=== PATIENT | female | born 1985 | race Caucasian/White ===

== ENCOUNTER 2016-10-05 22:33 | Emergency (ER) | payer MEDICARE, MEDICAID ==
[2016-10-05 22:37] VITALS: BP 125/56
[2016-10-05] MEDS ORDERED: methylPREDNISolone Sodium Succinate 125 MG/2 ML SDV IM ONE (23:04)
--- NOTE | 2016-10-05 23:10 | EDM.PDOC ---
ED HPI Allergic Reaction - General Chief Complaint: Allergic Reaction Stated Complaint: hives Time Seen by Provider: 10/05/16 22:58 Source of Information: Reports: Patient History Limitations: Reports: No limitations - History of Present Illness INITIAL COMMENTS - FREE TEXT/NARRATIVE: Patient presents tonight with concerns with hives to arms. Has swelling to the wrists and discoloration of the skin. States does have discomfort to the area now as a result. Relates can't move her left wrist comfortably now due to the swelling. Hives started at the left wrist and have now spread to the forearm and right arm as well. She was started on Bactrim today by Bernie for a UTI and sinus infection. Has only had one dose thus far today. Denies any dysphagia or breathing difficulties. Symptom Onset Date: 10/05/16 Timing/Duration: Reports: Hour(s): Location, Skin: Reports: upper extremity, right, upper extremity, left Characteristics: Reports: patchy, urticarial, erythematous Quality: Reports: Itching Severity: mild Known identified source: possible/maybe Associated Symptoms: Reports: headaches. Denies: shortness of breath, weakness , fever/chills, loss of appetite Similar symptoms previously: no Suspected Etiology: Reports: medication Recent Medical Care: yes Treatments KNITTER MACHINE: Reports: Other medication(s) Other Treatments KNITTER MACHINE: Bactrim - Related Data Allergies/ADRs: Allergies Allergy/AdvReac Type Severity Reaction Status Date / Time No Known Allergies Allergy Verified 10/05/16 22:38 Home Meds: Home Meds Sertraline HCl [Zoloft] 20 mg PO DAILY 08/16/16 [History] Estradiol Cypionate [Depo-Estradiol] 1 injection IM Q90D 10/05/16 [History] Past Medical History Genitourinary History: Reports: UTI, recurrent Psychiatric History: Reports: Anxiety, Depression - Past Surgical History HEENT Surgical History: Reports: Other (see below) Other HEENT Surgeries/Procedures: SURGERY TO CORRECT CROSS-EYED A BABY Musculoskeletal Surgical History: Reports: Other (see below) Other Musculoskeletal Surgeries/Procedures:: JUVENIAL BUNIONS Social & Family History - Family History Family Medical History: Noncontributory - Tobacco Use Smoking Status *Q: Former Smoker Years of Tobacco use: 5 Packs/Tins Daily: 0.5 - Caffeine Use Caffeine Use: Reports: None - Recreational Drug Use Recreational Drug Use: No ED ROS ALLERGIC REACTION - Review of Systems Review Of Systems: See Below Constitutional: Denies: fever, chills, malaise, weakness, fatigue, decreased appetite HEENT: Reports: Rhinitis, Sinus problem. Denies: Ear pain, Throat pain Respiratory: Denies: shortness of breath, wheezing, cough Cardiovascular: Denies: Chest pain, Edema, Lightheadedness Endocrine: Denies: fatigue GI/Abdominal: Denies: Abdominal pain, Constipation, Diarrhea, Nausea, Vomiting : Reports: no symptoms Musculoskeletal: Reports: no symptoms Skin: Reports: erythema, urticaria Neurological: Reports: no symptoms ED EXAM GENERAL NO PERIP PULSE - Physical Exam Exam: See Below Exam Limited By: No limitations General Appearance: alert, WD/WN, no apparent distress Ears: normal external exam, normal TMs Nose: no blood Throat/Mouth: Normal inspection, Normal oropharynx Head: normocephalic Neck: normal inspection, supple, non-tender Respiratory/Chest: no respiratory distress, lungs clear, normal breath sounds Cardiovascular: regular rate, rhythm GI/Abdominal: normal bowel sounds, soft, non tender Extremities: normal capillary refill Neurological: alert, oriented Skin Exam: Erythema (Patient has patchy red raised blotches to both arms. More diffuse redness noted to hands, moderate swelling noted at inner left wrist.) Course - Vital Signs Last Recorded V/S: Last Vital Signs Temp 98.8 F 10/05/16 22:34 Pulse 67 10/05/16 22:34 Resp 16 10/05/16 22:34 BP 125/56 L 10/05/16 22:34 Pulse Ox 95 10/05/16 22:34 - Orders/Labs/Meds Meds: Medications Discontinued Medications Generic Name Dose Route Start Last Admin Trade Name Andrew PRN Reason Stop Dose Admin Methylprednisolone Sodium Succinate 125 mg 10/05/16 23:04 10/05/16 23:07 Solu-Medrol IM 10/05/16 23:05 125 mg NOW ONE Administration Departure - Departure Time of Disposition: 23:13 Disposition: Home, Self-Care 01 Condition: good Clinical Impression: Urticaria Referrals: Bernie Delacruz PA-C [Primary Care Provider] - Forms: ED Department Discharge Additional Instructions: 1. Stop Bactrim 2. Benadryl 50 mg every 6 hours for 3 more doses 3. Ceftin 250 mg (one teaspoon) twice a day until gone 4. Prednisolone 15/5- 1 1/2 tsp daily for 4 days 5. Ice to wrists if helps relieve discomfort 6. If symptoms aren't resolved or worsen, follow up with Bernie Delacruz
== END 2016-10-05 23:20 | disposition home or self-care (01) ==
LOC: CC.ED 22:33
DX: L50.9 Urticaria, unspecified (principal); F41.9 Anxiety disorder, unspecified; F32.9 Major depressive disorder, single episode, unspecified; Z87.440 Personal history of urinary (tract) infections; Z79.899 Other long term (current) drug therapy; Z87.891 Personal history of nicotine dependence; R35.0 Frequency of micturition
CPT/HCPCS: 81001; 87086; 96372; 99283; J2930

== ENCOUNTER 2017-04-06 02:12 | Emergency (ER) | payer MEDICARE, MEDICAID ==
[2017-04-06 02:35] VITALS: BP 114/53
[2017-04-06] MEDS ORDERED: Ketorolac 30 MG/ML SDV IM ONE (02:53)
--- NOTE | 2017-04-06 03:04 | EDM.PDOC ---
ED HPI GENERAL MEDICAL PROBLEM - General Chief Complaint: Lower Extremity Injury/Pain Stated Complaint: "HAVING FOOT PAIN" Time Seen by Provider: 04/06/17 02:20 Source of Information: Reports: Patient History Limitations: Reports: No Limitations - History of Present Illness INITIAL COMMENTS - FREE TEXT/NARRATIVE: patient presents with increased right foot pain. States had surgery to shave off a bone on March 31. Was seen by the six pack packer today. Removed the esperanza bandage earlier today at her appointment and she feels that the pain is worse now. Relates that she asked for a cast on her foot to help with stability but the surgeon said it wasn't necessary. She is in a cast shoe and uses crutches can but has no weight bearing restrictions. She has been taking her hydrocodone every 4 hours but she doesn't get adequate pain relief at night. She tried to elevate and use heat tonight but that didn't seem to help. Has been taking Dimetap at night to help with sleep but tonight she couldn't get her toes to stop from "curling up". Mother hasn't noted any increased swelling or bruising. Duration: Day(s): Location: Reports: Lower Extremity, Right Quality: Reports: Throbbing Severity: Severe Improves with: Reports: Movement Associated Symptoms: Reports: No Other Symptoms Treatments HARBOR TUG CAPTAIN: Reports: Other (see below) (hydrocodone) Right Feet Pain Score (Numeric/FACES): 9 - Related Data Allergies Allergy/AdvReac Type Severity Reaction Status Date / Time azithromycin [From Zithromax] Allergy Nausea and Verified 04/06/17 02:40 Vomiting sulfamethoxazole Allergy Hives Verified 04/06/17 02:40 [From Bactrim] trimethoprim [From Bactrim] Allergy Hives Verified 04/06/17 02:40 AMOX Allergy Diarrhea Uncoded 04/06/17 02:40 Home Meds: Home Meds Sertraline HCl [Zoloft] 20 mg PO DAILY 08/16/16 [History] Estradiol Cypionate [Depo-Estradiol] 1 injection IM Q90D 10/05/16 [History] Past Medical History Genitourinary History: Reports: UTI, Recurrent Psychiatric History: Reports: Anxiety, Depression - Past Surgical History HEENT Surgical History: Reports: Other (See Below) Musculoskeletal Surgical History: Reports: Other (See Below) Social & Family History - Family History Family Medical History: Noncontributory - Tobacco Use Smoking Status *Q: Former Smoker Years of Tobacco use: 5 Packs/Tins Daily: 0.5 - Caffeine Use Caffeine Use: Reports: None - Recreational Drug Use Recreational Drug Use: No Review of Systems - Review of Systems Review Of Systems: ROS reveals no pertinent complaints other than HPI. ED EXAM, GENERAL - Physical Exam Exam: See Below Exam Limited By: No Limitations General Appearance: Alert, WD/WN, No Apparent Distress Extremities: Other (Linear incision to top of midfoot. Wound is clean and dry. Mild bruising noted. No redness or swelling. Good range of motion of ankle and toes. Increased discomfort with flexion and extension of her toes.). No: Pedal Edema, Redness Neurological: Alert, Oriented Course - Vital Signs Last Recorded V/S: Last Vital Signs Temp 97.1 F 04/06/17 02:32 Pulse 95 04/06/17 02:32 Resp 20 04/06/17 02:32 BP 114/53 L 04/06/17 02:32 Pulse Ox 96 04/06/17 02:32 - Orders/Labs/Meds Meds: Medications Discontinued Medications Generic Name Dose Route Start Last Admin Trade Name Freq PRN Reason Stop Dose Admin Diazepam 5 mg 04/06/17 02:51 Valium IM 04/06/17 02:52 ONETIME ONE Ketorolac Tromethamine 30 mg 04/06/17 02:53 Toradol IM 04/06/17 02:54 ONETIME ONE Departure - Departure Time of Disposition: 02:55 Disposition: Home, Self-Care 01 Condition: Good Clinical Impression: Right foot pain - Discharge Information Forms: ED Department Discharge Additional Instructions: 1. Continue to elevate foot as needed 2. Cast shoe and crutches as directed per surgeon 3. Continue with hydrocodone for pain 4. Valium 5 mg/5ml at bedtime for muscle spasms and relaxation/pain 5. Contact Dr. Rubi for ongoing concern
== END 2017-04-06 03:15 | disposition home or self-care (01) ==
LOC: CC.ED 02:12
DX: M79.671 Pain in right foot (principal); F41.9 Anxiety disorder, unspecified; F32.9 Major depressive disorder, single episode, unspecified; Z88.1 Allergy status to other antibiotic agents; Z88.2 Allergy status to sulfonamides; Z79.899 Other long term (current) drug therapy; Z87.440 Personal history of urinary (tract) infections; Z87.891 Personal history of nicotine dependence
CPT/HCPCS: 96372; 99283; J1885; J3360

== ENCOUNTER 2017-06-06 21:01 | Emergency (ER) | payer MEDICARE, MEDICAID ==
[2017-06-06 21:09] VITALS: BP 108/73
[2017-06-06 21:43] LABS: CHLORIDE,CL 106 mEq/L (98-106); SODIUM,NA 142 mEq/L (136-145)
[2017-06-06] MEDS ORDERED: Lidocaine 1% 20 ML MDV INJECT ONE (21:58)
[2017-06-06] MEDS ORDERED: cefTRIAXone 1 GM Vial IM ONE (21:58)
--- NOTE | 2017-06-06 22:17 | EDM.PDOC ---
ED HPI GENERAL MEDICAL PROBLEM - General Chief Complaint: General Stated Complaint: sore neck and legs Time Seen by Provider: 06/06/17 21:33 Source of Information: Reports: Patient History Limitations: Reports: No Limitations - History of Present Illness INITIAL COMMENTS - FREE TEXT/NARRATIVE: Patient presents with complaints of neck stiffness or soreness, chest discomfort , palpitations and abdominal discomfort. She states earlier this evening with feeling like her heart was racing. Mother took her pulse and it was normal. Now she states those "racing sensations are in my stomach". Mother is worried that it could be because she ate Evangelista sauce last night and she does have multiple food allergies. She also had the flu shot about 5 days ago. Denies fever. Mild nausea. No vomiting. No diarrhea. She also does deal with anxiety and states that is always a contributing factor when she gets ill. She has no cough or shortness of breath. No sinus congestion or head pain. States is sore in her neck when she looks from side to side. Onset: Today, Gradual Duration: Hour(s): Location: Reports: Generalized Quality: Reports: Ache Severity: Mild Improves with: Reports: Rest Associated Symptoms: Reports: Fever/Chills, Nausea/Vomiting, Weakness. Denies: Confusion, Cough, Shortness of Breath Treatments COMPUTER CONSULTANT: Reports: Acetaminophen Bilateral Neck Pain Score (Numeric/FACES): 3 Bilateral Leg Pain Score (Numeric/FACES): 3 Lower Groin Pain Score (Numeric/FACES): 3 - Related Data Allergies Allergy/AdvReac Type Severity Reaction Status Date / Time azithromycin [From Zithromax] Allergy Nausea and Verified 06/06/17 21:09 Vomiting sulfamethoxazole Allergy Hives Verified 06/06/17 21:09 [From Bactrim] trimethoprim [From Bactrim] Allergy Hives Verified 06/06/17 21:09 AMOX Allergy Diarrhea Uncoded 06/06/17 21:09 Home Meds: Home Meds Sertraline HCl [Zoloft] 20 mg PO DAILY PRN 08/16/16 [History] Past Medical History Genitourinary History: Reports: UTI, Recurrent Psychiatric History: Reports: Anxiety, Depression - Past Surgical History HEENT Surgical History: Reports: Other (See Below) Musculoskeletal Surgical History: Reports: Other (See Below) Social & Family History - Family History Family Medical History: Noncontributory - Tobacco Use Smoking Status *Q: Never Smoker Years of Tobacco use: 5 Packs/Tins Daily: 0.5 Second Hand Smoke Exposure: No - Caffeine Use Caffeine Use: Reports: None - Recreational Drug Use Recreational Drug Use: No ED ROS GENERAL - Review of Systems Review Of Systems: See Below Constitutional: Reports: Chills, Malaise, Decreased Appetite. Denies: Fever HEENT: Denies: Rhinitis, Throat Pain, Vertigo Respiratory: Denies: Shortness of Breath, Cough Cardiovascular: Reports: Palpitations. Denies: Chest Pain, Edema, Lightheadedness Endocrine: Reports: Fatigue GI/Abdominal: Reports: Abdominal Pain, Diarrhea, Nausea. Denies: Anorexia, Vomiting : Reports: Frequency Musculoskeletal: Reports: Muscle Pain Skin: Reports: No Symptoms Neurological: Reports: Headache ED EXAM, GENERAL - Physical Exam Exam: See Below Exam Limited By: No Limitations General Appearance: Alert, WD/WN, No Apparent Distress Ears: Normal External Exam, Normal TMs Nose: Normal Inspection, Normal Mucosa, No Blood Throat/Mouth: Normal Inspection, Normal Oropharynx Head: Normocephalic Neck: Normal Inspection, Supple, Non-Tender, Tender Lateral Respiratory/Chest: No Respiratory Distress, Lungs Clear, Normal Breath Sounds Cardiovascular: Regular Rate, Rhythm GI/Abdominal: Normal Bowel Sounds, Soft, Non-Tender Extremities: Normal Inspection, Normal Capillary Refill Neurological: Alert, Oriented Skin Exam: Warm, Dry Course - Vital Signs Last Recorded V/S: Last Vital Signs Temp 98.4 F 06/06/17 21:05 Pulse 76 06/06/17 21:05 Resp 18 06/06/17 21:05 BP 108/73 06/06/17 21:05 Pulse Ox 100 06/06/17 21:05 - Orders/Labs/Meds Orders: Active Orders 24 hr Category Date Time Status CULTURE URINE [RM] Stat Lab 06/06/17 21:25 Received Labs: Laboratory Tests 06/06/17 06/06/17 06/06/17 Range/Units 21:25 21:30 21:30 WBC 6.3 (5.0-10.0) 10^3/uL RBC 4.77 (4.00-5.50) 10^6/uL Hgb 14.3 (12.0-16.0) g/dL Hct 43.1 (37.0-47.0) % MCV 90.4 (82.0-94.0) fL MCH 30.0 (27.0-32.0) pg MCHC 33.2 (33.0-38.0) g/dL RDW Coeff of Ayaka 12.1 (11.0-15.0) % Plt Count 201 (150-400) 10^3/uL Neut % (Auto) 55.3 (35-85) % Lymph % (Auto) 29.5 (10-55) % Mason % (Auto) 8.8 (0-16) % Eos % (Auto) 5.8 H (0-5) % Baso % (Auto) 0.6 (0-3) % Neut # (Auto) 3.49 (1.80-7.00) 10^3/uL Lymph # (Auto) 1.87 (1.00-4.80) 10^3/uL Mason # (Auto) 0.56 (0.00-0.80) 10^3/uL Eos # (Auto) 0.37 (0.00-0.45) 10^3/uL Baso # (Auto) 0.04 10^3/uL Sodium 142 (136-145) mEq/L Potassium 3.9 (3.5-5.0) mEq/L Chloride 106 (98-106) mEq/L Carbon Dioxide 28 (21-32) mmol/L BUN 8 (7-18) mg/dL Creatinine 0.7 (0.6-1.0) mg/dL Est Cr Clr Drug Dosing 69.21 mL/min Estimated GFR (MDRD) > 60 (>=60) mL/min Glucose 96 (75-99) mg/dL Calcium 9.5 (8.4-10.1) mg/dL Total Bilirubin 0.4 (0.0-1.0) mg/dL AST 16 (15-37) U/L ALT 16 (12-78) U/L Alkaline Phosphatase 94 (46-116) U/L Creatine Kinase 125 (21-215) U/L C-Reactive Protein < 0.2 L (0.2-0.8) mg/dL Total Protein 7.7 (6.4-8.2) g/dL Albumin 4.3 (3.4-5.0) g/dL Urine Color Yellow (YELLOW) Urine Appearance Cloudy (CLEAR) Urine pH 7.0 (4.5-8.0) Ur Specific [place] 1.020 (1.003-1.020) Urine Protein Negative (NEGATIVE) mg/dL Urine Glucose (UA) Negative (NEGATIVE) mg/dL Urine Ketones Negative (NEGATIVE) mg/dL Urine Occult Blood Negative (NEGATIVE) Urine Nitrite Negative (NEGATIVE) Urine Bilirubin Negative (NEGATIVE) Urine Urobilinogen 0.2 (0.2-1.0) EU/dL Ur Leukocyte Esterase Moderate H (NEGATIVE) Urine RBC 0-5 (0-5) /HPF Urine WBC 10-20 H (0-5) /HPF Ur Epithelial Cells Few H (NOT SEEN) /HPF Amorphous Sediment Moderate H (NOT SEEN) /HPF Urine Bacteria Moderate H (NOT SEEN) /HPF Urinalysis Comment See note Meds: Medications Discontinued Medications Generic Name Dose Route Start Last Admin Trade Name Freq PRN Reason Stop Dose Admin Ceftriaxone Sodium 1 gm 06/06/17 21:58 06/06/17 22:08 Rocephin IM 06/06/17 21:59 1 gm ONETIME ONE Administration Lidocaine HCl 2.1 ml 06/06/17 21:58 06/06/17 22:08 Xylocaine 1% INJECT 06/06/17 21:59 2.1 ml ONETIME ONE Administration - Re-Assessments/Exams Free Text/Narrative Re-Assessment/Exam: 06/06/17 2200 Patient advised of lab results. UA positive. Rocephin given. Departure - Departure Time of Disposition: 22:15 Disposition: Home, Self-Care 01 Condition: Good Clinical Impression: UTI (urinary tract infection) Qualifiers: Urinary tract infection type: acute cystitis Hematuria presence: without hematuria Qualified Code(s): N30.00 - Acute cystitis without hematuria - Discharge Information Referrals: Bernie Delacruz PA-C [Primary Care Provider] - Forms: ED Department Discharge Additional Instructions: 1. Push fluids 2. Tylenol or ibuprofen for fever or discomfort 3. Cipro 250 mg twice a day for 10 days 4. Contact Bernie Delacruz regarding Xanax 5. Call with any questions or concerns. - My Orders Last 24 Hours: My Active Orders 06/06/17 21:25 CULTURE URINE [RM] Stat - Assessment/Plan Last 24 Hours: My Active Orders 06/06/17 21:25 CULTURE URINE [RM] Stat
== END 2017-06-06 22:25 | disposition home or self-care (01) ==
LOC: CC.ED 21:01
DX: N30.00 Acute cystitis without hematuria (principal); Z88.1 Allergy status to other antibiotic agents; F41.9 Anxiety disorder, unspecified; F32.9 Major depressive disorder, single episode, unspecified; Z88.2 Allergy status to sulfonamides
CPT/HCPCS: 36415; 80053; 81001; 82550; 85025; 86140; 87086; 96372; 99283; J0696

== ENCOUNTER 2017-08-16 21:55 | Emergency (ER) | payer MEDICARE, MEDICAID ==
[2017-08-16] MEDS ORDERED: Ondansetron 4 MG Tab.DIS PO ONE (21:56)
[2017-08-16 22:00] VITALS: BP 115/74
--- NOTE | 2017-08-16 22:14 | EDM.PDOC ---
ED HPI GENERAL MEDICAL PROBLEM - General Chief Complaint: Headache Stated Complaint: headache Time Seen by Provider: 08/16/17 22:05 Source of Information: Reports: Patient, Family History Limitations: Reports: No Limitations - History of Present Illness INITIAL COMMENTS - FREE TEXT/NARRATIVE: Patient presents with complaints of a headache. States started yesterday and can't seem to get any relief. She did try Tylenol and ibuprofen at home without relief. Saw Bernie Delacruz in the clinic earlier today and got toradol without much relief from that. She denies any light sensitivity, mild nausea. States is sensitive to sounds but that is chronic for her. Has been having troubles with TMJ, is seeing a chiropractor. Is supposed to wear a bite guard at night but is not compliant with this. No neurological changes noted. No trauma. No recent falls. Onset: Gradual Duration: Day(s): Location: Reports: Head Quality: Reports: Throbbing Severity: Severe Improves with: Reports: None Treatments MUSIC STORE MANAGER: Reports: Acetaminophen, NSAIDS Headache Pain Score (Numeric/FACES): 9 - Related Data Allergies Allergy/AdvReac Type Severity Reaction Status Date / Time azithromycin [From Zithromax] Allergy Nausea and Verified 08/16/17 22:01 Vomiting sulfamethoxazole Allergy Hives Verified 08/16/17 22:01 [From Bactrim] trimethoprim [From Bactrim] Allergy Hives Verified 08/16/17 22:01 AMOX Allergy Diarrhea Uncoded 06/06/17 21:09 Home Meds: Home Meds Sertraline HCl [Zoloft] 5 mg PO DAILY PRN 08/16/16 [History] Past Medical History Genitourinary History: Reports: UTI, Recurrent Psychiatric History: Reports: Anxiety, Depression - Past Surgical History HEENT Surgical History: Reports: Other (See Below) Musculoskeletal Surgical History: Reports: Other (See Below) Social & Family History - Family History Family Medical History: Noncontributory - Tobacco Use Smoking Status *Q: Never Smoker Years of Tobacco use: 5 Packs/Tins Daily: 0.5 Second Hand Smoke Exposure: No - Caffeine Use Caffeine Use: Reports: None - Recreational Drug Use Recreational Drug Use: No ED ROS GENERAL - Review of Systems Review Of Systems: See Below Constitutional: Denies: Fever, Chills, Malaise, Weakness, Decreased Appetite HEENT: Reports: Other (TMJ pain). Denies: Ear Pain, Sinus Problem, Throat Pain Respiratory: Reports: No Symptoms Cardiovascular: Reports: No Symptoms Endocrine: Reports: No Symptoms GI/Abdominal: Reports: Nausea. Denies: Abdominal Pain, Vomiting : Reports: No Symptoms Musculoskeletal: Reports: Muscle Pain (left shoulder) Skin: Reports: No Symptoms Neurological: Reports: Headache. Denies: Syncope, Weakness - Physical Exam Exam: See Below Exam Limited By: No Limitations General Appearance: Alert, WD/WN, No Apparent Distress Eye Exam: Bilateral Eye: EOMI, PERRL Ears: Normal External Exam, Normal TMs Nose: Normal Inspection, Normal Mucosa, No Blood Throat/Mouth: Normal Inspection, Normal Oropharynx Head Exam: Normocephalic, Other (Left TMJ does pop with opening and closing her mouth, tender in this area.) Neck: Normal Inspection, Supple, Non-Tender Respiratory/Chest: No Respiratory Distress, Lungs Clear, Normal Breath Sounds Cardiovascular: Regular Rate, Rhythm GI/Abdominal: Normal Bowel Sounds, Soft, Non-Tender Neuro Exam (Abbreviated): Alert, Oriented, CN II-XII Intact, Normal Cognition, Normal Gait, No Motor/Sensory Deficits Course - Vital Signs Last Recorded V/S: Last Vital Signs Temp 98.9 F 08/16/17 21:57 Pulse 79 08/16/17 21:57 Resp 16 08/16/17 21:57 BP 115/74 08/16/17 21:57 Pulse Ox 97 08/16/17 21:57 Departure - Departure Time of Disposition: 22:32 Disposition: Home, Self-Care 01 Clinical Impression: Tension-type headache - Discharge Information Additional Instructions: 1. Rest 2. Push fluids 3. Alternate tylenol with ibuprofen for ongoing headache 4. Continue to see chiropractor, wear bite block 5. Zofran 4 mg every 6 hours as needed for nausea 6. Follow up with Bernie Delacruz for any ongoing concerns.
[2017-08-16] MEDS ORDERED: Ketorolac 60 MG/2 ML SDV IM ONE (22:19)
[2017-08-16] MEDS ORDERED: Ketorolac 60 MG/2 ML SDV ONE (22:19)
[2017-08-16] MEDS ORDERED: Take Home: Ondansetron 4 MG Tab.DIS, 2 Tab Pack PO ONE (22:22)
== END 2017-08-16 22:40 | disposition home or self-care (01) ==
LOC: CC.ED 21:55
DX: G44.209 Tension-type headache, unspecified, not intractable (principal); F32.9 Major depressive disorder, single episode, unspecified; Z88.1 Allergy status to other antibiotic agents; Z88.2 Allergy status to sulfonamides; Z79.899 Other long term (current) drug therapy
CPT/HCPCS: 96372; 99282; A9270; J1885; J2360

== ENCOUNTER 2017-12-10 21:50 | Emergency (ER) | payer MEDICARE, MEDICAID ==
--- NOTE | 2017-12-10 22:06 | EDM.PDOC ---
ED HPI GENERAL MEDICAL PROBLEM - General Chief Complaint: General Stated Complaint: HEADACHE Time Seen by Provider: 12/10/17 22:00 Source of Information: Reports: Patient, Family History Limitations: Reports: No Limitations - History of Present Illness INITIAL COMMENTS - FREE TEXT/NARRATIVE: Patient presents to ER with complaints of a headache, body aches and sinus congestion. She flew on and she feels that led to more sinus pressure. She also relates that often when she gets a headache like this, she has a bladder infection. Did try Advil and Dimetapp today but did not note much relief with it. No fevers. No nausea or vomiting. No abdominal pain. No cough. Denies light or sound sensitivity. Onset: Today, Gradual Duration: Hour(s):, Getting Worse Location: Reports: Head Quality: Reports: Throbbing Severity: Moderate Associated Symptoms: Reports: Headaches. 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 - Related Data Allergies Allergy/AdvReac Type Severity Reaction Status Date / Time amoxicillin Allergy Diarrhea Verified 08/16/17 22:47 azithromycin [From Zithromax] Allergy Nausea and Verified 08/16/17 22:45 Vomiting sulfamethoxazole Allergy Hives Verified 08/16/17 22:45 [From Bactrim] trimethoprim [From Bactrim] Allergy Hives Verified 08/16/17 22:45 Home Meds: Home Meds Sertraline HCl [Zoloft] 5 mg PO DAILY PRN 08/16/16 [History] Past Medical History HEENT History: Reports: Other (See Below) Other HEENT History: TMJ Genitourinary History: Reports: UTI, Recurrent Neurological History: Reports: Headaches, Chronic Psychiatric History: Reports: Anxiety, Depression - Past Surgical History HEENT Surgical History: Reports: Other (See Below) Musculoskeletal Surgical History: Reports: Other (See Below) Social & Family History - Family History Family Medical History: Noncontributory - Tobacco Use Smoking Status *Q: Never Smoker Years of Tobacco use: 5 Packs/Tins Daily: 0.5 Second Hand Smoke Exposure: No - Caffeine Use Caffeine Use: Reports: None - Recreational Drug Use Recreational Drug Use: No ED ROS GENERAL - Review of Systems Review Of Systems: See Below Constitutional: Reports: Weakness. Denies: Fever, Chills, Malaise, Decreased Appetite HEENT: Reports: Sinus Problem. Denies: Ear Pain, Throat Pain Respiratory: Reports: Cough. Denies: Shortness of Breath, Sputum Cardiovascular: Denies: Chest Pain, Edema, Lightheadedness Endocrine: Reports: Fatigue GI/Abdominal: Denies: Abdominal Pain, Constipation, Diarrhea, Decreased Appetite , Nausea, Vomiting : Reports: No Symptoms Musculoskeletal: Reports: Neck Pain, Back Pain Skin: Reports: No Symptoms Neurological: Reports: Headache ED EXAM, GENERAL - Physical Exam Exam: See Below Exam Limited By: No Limitations General Appearance: Alert, WD/WN, No Apparent Distress Ears: Normal External Exam, Normal TMs Nose: Normal Inspection, Normal Mucosa, No Blood, Nasal Drainage, Other ( bilateral maxillary sinus tenderness with palpation) Throat/Mouth: Normal Inspection, Normal Oropharynx Head: Normocephalic Neck: Normal Inspection, Supple, Non-Tender Respiratory/Chest: No Respiratory Distress, Lungs Clear, Normal Breath Sounds Cardiovascular: Regular Rate, Rhythm GI/Abdominal: Normal Bowel Sounds, Soft, Non-Tender Neurological: Alert, Oriented Skin Exam: Warm, Dry Course - Orders/Labs/Meds Labs: Laboratory Tests 12/10/17 Range/Units 21:57 Urine Color Yellow (YELLOW) Urine Appearance Clear (CLEAR) Urine pH 6.0 (4.5-8.0) Ur Specific [place] >= 1.030 H (1.003-1.020) Urine Protein >=300 H (NEGATIVE) mg/dL Urine Glucose (UA) Negative (NEGATIVE) mg/dL Urine Ketones Negative (NEGATIVE) mg/dL Urine Occult Blood Trace-intact H (NEGATIVE) Urine Nitrite Negative (NEGATIVE) Urine Bilirubin Negative (NEGATIVE) Urine Urobilinogen 0.2 (0.2-1.0) EU/dL Ur Leukocyte Esterase Trace H (NEGATIVE) Urine RBC 0-5 (0-5) /HPF Urine WBC 0-5 (0-5) /HPF Ur Squamous Epith Cells Few H (NOT SEEN) /HPF Urine Bacteria Occasional H (NOT SEEN) /HPF Urine Mucus Occasional H (NOT SEEN) /HPF Meds: Medications Discontinued Medications Generic Name Dose Route Start Last Admin Trade Name Freq PRN Reason Stop Dose Admin Ketorolac Tromethamine 30 mg 12/10/17 22:15 Toradol IM 12/10/17 22:16 ONETIME ONE Ketorolac Tromethamine Confirm 05/06/18 22:12 Toradol Administered 12/10/17 22:13 Dose 30 mg .ROUTE .STK-MED ONE - Re-Assessments/Exams Free Text/Narrative Re-Assessment/Exam: 12/10/17 22:31 UA shows small amount of leukocytes, occasional bacteria Departure - Departure Time of Disposition: 22:20 Disposition: Home, Self-Care 01 Condition: Good Clinical Impression: Tension-type headache, UTI, Urinary tract infectious disease, Sinusitis - Discharge Information Referrals: Provider,Unknown [Primary Care Provider] - Forms: ED Department Discharge Additional Instructions: 1. Push fluids 2. Tylenol or ibuprofen for fever or headache. 3. Ceftin 250/5~ one teaspoon twice a day for 10 days 4. Follow up for any ongoing concerns
[2017-12-10] MEDS ORDERED: Ketorolac 30 MG/ML SDV ONE (22:12)
[2017-12-10] MEDS ORDERED: Ketorolac 30 MG/ML SDV IM ONE (22:15)
[2017-12-10 23:07] VITALS: BP 118/68
== END 2017-12-10 22:30 | disposition home or self-care (01) ==
LOC: CC.ED 21:50
DX: G44.209 Tension-type headache, unspecified, not intractable (principal); N39.0 Urinary tract infection, site not specified; J32.9 Chronic sinusitis, unspecified; F41.9 Anxiety disorder, unspecified; F32.9 Major depressive disorder, single episode, unspecified; Z88.1 Allergy status to other antibiotic agents; Z88.2 Allergy status to sulfonamides; Z79.899 Other long term (current) drug therapy; Z87.440 Personal history of urinary (tract) infections
CPT/HCPCS: 81001; 96372; 99283; J1885

== ENCOUNTER 2018-01-09 03:42 | Emergency (ER) | payer MEDICARE, MEDICAID ==
[2018-01-09 03:47] VITALS: BP 103/73
--- NOTE | 2018-01-09 04:21 | EDM.PDOC ---
ED HPI GENERAL MEDICAL PROBLEM - General Chief Complaint: ENT Problem Stated Complaint: sore throat Time Seen by Provider: 01/09/18 04:08 Source of Information: Reports: Patient History Limitations: Reports: No Limitations - History of Present Illness INITIAL COMMENTS - FREE TEXT/NARRATIVE: Millie is a 32 year old female who presents to the ED with c/o throat pain. She reports that the pain woke her from her sleep. She describes the pain as pins and needles. She denies any sinus congestion, difficulty breathing, chest pain, shortness of breath, N/V/D. Does not have any other symptoms other than throat pain. She has not tried anything at home for the pain. Onset: Today, Sudden Onset Date: 01/09/18 Onset Time: 03:30 Duration: Constant Location: Reports: Other (throat) Quality: Reports: Sharp, Stabbing Associated Symptoms: Reports: No Other Symptoms. Denies: Confusion, Chest Pain , Cough, cough w sputum, Diaphoresis, Fever/Chills, Headaches, Loss of Appetite , Malaise, Nausea/Vomiting, Rash, Seizure, Shortness of Breath, Syncope, Weakness Throat Pain Score (Numeric/FACES): 10 - Related Data Allergies Allergy/AdvReac Type Severity Reaction Status Date / Time amoxicillin Allergy Diarrhea Verified 01/09/18 03:47 azithromycin [From Zithromax] Allergy Nausea and Verified 01/09/18 03:47 Vomiting sulfamethoxazole Allergy Hives Verified 01/09/18 03:47 [From Bactrim] trimethoprim [From Bactrim] Allergy Hives Verified 01/09/18 03:47 Home Meds: Home Meds Sertraline HCl [Zoloft] 5 mg PO DAILY PRN 08/16/16 [History] Past Medical History HEENT History: Reports: Other (See Below) Other HEENT History: TMJ Genitourinary History: Reports: UTI, Recurrent Neurological History: Reports: Headaches, Chronic Psychiatric History: Reports: Anxiety, Depression - Past Surgical History HEENT Surgical History: Reports: Other (See Below) Musculoskeletal Surgical History: Reports: Other (See Below) Social & Family History - Family History Family Medical History: Noncontributory - Tobacco Use Smoking Status *Q: Never Smoker - Caffeine Use Caffeine Use: Reports: Coffee ED ROS ENT - Review of Systems Review Of Systems: ROS reveals no pertinent complaints other than HPI. ED EXAM, ENT - Physical Exam Exam: See Below Exam Limited By: No Limitations General Appearance: Alert, WD/WN, No Apparent Distress Eye Exam: Bilateral Eye: EOMI, Normal Fundi, Normal Inspection, PERRL Ears: Normal External Exam, Normal Canal, Hearing Grossly Normal, Normal TMs Nose: Normal Inspection, Normal Mucousa, No Blood Mouth/Throat: Normal Inspection, Normal Gums, Normal Lips, Normal Oropharynx, Normal Teeth Head: Atraumatic, Normocephalic Neck: Normal Inspection, Supple, Non-Tender, Full Range of Motion Respiratory/Chest: No Respiratory Distress, Lungs Clear, Normal Breath Sounds, No Accessory Muscle Use, Chest Non-Tender Cardiovascular: Normal Peripheral Pulses, Regular Rate, Rhythm, No Edema, No Gallop, No JVD, No Murmur, No Rub Course - Vital Signs Last Recorded V/S: Last Vital Signs Temp 98.1 F 01/09/18 03:43 Pulse 76 01/09/18 03:43 Resp 20 01/09/18 03:43 BP 103/73 01/09/18 03:43 Pulse Ox 96 01/09/18 03:43 Departure - Departure Time of Disposition: 04:16 Disposition: Home, Self-Care 01 Condition: Good Clinical Impression: Allergic pharyngitis - Discharge Information Instructions: Pharyngitis, [id number] Referrals: Bernie Delacruz PA-C [Primary Care Provider] - Additional Instructions: 1) WARM SALT WATER GARGLES 2) THROAT LOZENGES NEEDED FOR COMFORT 3) TYLENOL OR IBUPROFEN NEEDED FOR DISCOMFORT 4) BENADRYL NEEDED 5) WARM PACK NECK FOR COMFORT 6) FOLLOW UP WITH PCP IF SYMPTOMS WORSEN OR DO NOT IMPROVE
== END 2018-01-09 04:30 | disposition home or self-care (01) ==
LOC: CC.ED 03:42
DX: J02.9 Acute pharyngitis, unspecified (principal); F32.9 Major depressive disorder, single episode, unspecified; Z88.1 Allergy status to other antibiotic agents; Z88.2 Allergy status to sulfonamides; Z79.899 Other long term (current) drug therapy
CPT/HCPCS: 99282; 99283

== ENCOUNTER 2018-02-08 23:19 | Emergency (ER) | payer MEDICARE, MEDICAID ==
[2018-02-08 23:25] VITALS: BP 102/67
--- NOTE | 2018-02-08 23:30 | EDM.PDOC ---
ED HPI GENERAL MEDICAL PROBLEM - General Chief Complaint: ENT Problem Stated Complaint: bilat ear pain Time Seen by Provider: 02/08/18 23:21 Source of Information: Reports: Patient History Limitations: Reports: No Limitations - History of Present Illness INITIAL COMMENTS - FREE TEXT/NARRATIVE: This patient is a 32 year old female that presents to the ER with mother. Patient reports that on Monday she began with runny nose, congestion, drainage, productive cough. She reports tonight she developed sinus pain, pressure, and bilateral ear pressure. Patient reports that she is feeling some better since Monday. Patient reports she came in because she was having ear pains. Patient denies ro, dizziness, n, v, d, f, cp, soa, abd pain, urinary/bowel changes, rashes. Onset Date: 02/04/18 Duration: Day(s): (4) Severity: Mild Improves with: Reports: None Worsens with: Reports: None Associated Symptoms: Reports: Cough, cough w sputum. Denies: Confusion, Chest Pain, Diaphoresis, Fever/Chills, Headaches, Loss of Appetite, Malaise, Nausea/ Vomiting, Rash, Seizure, Shortness of Breath, Syncope, Weakness Right Ear Pain Score (Numeric/FACES): 10 - Related Data Allergies Allergy/AdvReac Type Severity Reaction Status Date / Time amoxicillin Allergy Diarrhea Verified 01/09/18 03:47 azithromycin [From Zithromax] Allergy Nausea and Verified 01/09/18 03:47 Vomiting sulfamethoxazole Allergy Hives Verified 01/09/18 03:47 [From Bactrim] trimethoprim [From Bactrim] Allergy Hives Verified 01/09/18 03:47 Home Meds: Home Meds Sertraline HCl [Zoloft] 5 mg PO DAILY PRN 08/16/16 [History] Cefdinir [Omnicef 250 MG/5 ML Susp] 5 ml PO BID 02/08/18 [History] hydrOXYzine HCl [Hydroxyzine HCl] 5 ml PO DAILY PRN 02/08/18 [History] Past Medical History HEENT History: Reports: Other (See Below) Other HEENT History: TMJ Genitourinary History: Reports: UTI, Recurrent Neurological History: Reports: Headaches, Chronic Psychiatric History: Reports: Anxiety, Depression - Past Surgical History HEENT Surgical History: Reports: Other (See Below) Musculoskeletal Surgical History: Reports: Other (See Below) Social & Family History - Family History Family Medical History: Noncontributory - Caffeine Use Caffeine Use: Reports: Coffee ED ROS ENT - Review of Systems Review Of Systems: See Below Constitutional: Reports: No Symptoms HEENT: Reports: Ear Pain (bilateral), Rhinitis, Sinus Problem Respiratory: Reports: Cough, Sputum Cardiovascular: Reports: No Symptoms Endocrine: Reports: No Symptoms GI/Abdominal: Reports: No Symptoms : Reports: No Symptoms Musculoskeletal: Reports: No Symptoms Skin: Reports: No Symptoms Neurological: Reports: No Symptoms Psychiatric: Reports: No Symptoms Hematologic/Lymphatic: Reports: No Symptoms Immunologic: Reports: No Symptoms ED EXAM, ENT - Physical Exam Exam: See Below Exam Limited By: No Limitations General Appearance: Alert, WD/WN, No Apparent Distress Eye Exam: Bilateral Eye: Normal Inspection, PERRL Ears: Normal External Exam, Normal Canal, Hearing Grossly Normal, Normal TMs Nose: Normal Inspection, Normal Mucousa, No Blood Mouth/Throat: Normal Inspection, Normal Gums, Normal Lips, Normal Oropharynx, Normal Teeth Head: Atraumatic, Normocephalic Neck: Normal Inspection, Supple, Non-Tender, Full Range of Motion Respiratory/Chest: No Respiratory Distress, Lungs Clear, Normal Breath Sounds, No Accessory Muscle Use Cardiovascular: Normal Peripheral Pulses, Regular Rate, Rhythm, No Edema, No Gallop, No JVD, No Murmur, No Rub Back: Normal Inspection, Full Range of Motion Extremities: Normal Inspection, Normal Range of Motion, Non-Tender, No Pedal Edema, Normal Capillary Refill Neurological: Alert, Oriented Psychiatric: Normal Affect, Normal Mood Skin: Warm, Dry, Intact, Normal Color, No Rash Lymphatic: No Adenopathy Course - Vital Signs Last Recorded V/S: Last Vital Signs Temp 97.1 F 02/08/18 23:20 Pulse 75 02/08/18 23:20 Resp 20 02/08/18 23:20 BP 102/67 02/08/18 23:20 Pulse Ox 100 02/08/18 23:20 Departure - Departure Time of Disposition: 23:27 Disposition: Home, Self-Care 01 Condition: Fair Clinical Impression: Acute sinusitis Qualifiers: Sinusitis location: maxillary Recurrence: non-recurrent Qualified Code(s): J01.00 - Acute maxillary sinusitis, unspecified - Discharge Information Instructions: Sinusitis, Adult, [id number] Referrals: Bernie Delacruz PA-C [Primary Care Provider] - Forms: ED Department Discharge Additional Instructions: Followup with your primary care provider Return to the ER for emergencies Increase fluids Tylenol, Motrin, Sudafed, Mucinex, Tylenol Cold and Flu are over the counter medications [place] Continue your antibiotic as directed Prednisone 5mg/1ml take 4ml twice a day for 5 days #suff qty no refill - Assessment/Plan Plan: PLEASE SEE RN NOTE FOR PFSH.
== END 2018-02-08 23:55 | disposition home or self-care (01) ==
LOC: CC.ED 23:19
DX: J01.00 Acute maxillary sinusitis, unspecified (principal); F32.9 Major depressive disorder, single episode, unspecified; Z88.1 Allergy status to other antibiotic agents; Z88.2 Allergy status to sulfonamides; Z79.899 Other long term (current) drug therapy
CPT/HCPCS: 99282; 99283

== ENCOUNTER 2018-02-27 22:12 | Emergency (ER) | payer MEDICARE, MEDICAID ==
[2018-02-27 22:19] VITALS: BP 115/70
[2018-02-27 22:52] LABS: CHLORIDE,CL 104 mEq/L (98-106); SODIUM,NA 136 mEq/L (136-145)
[2018-02-27] MEDS ORDERED: Ketorolac 30 MG/ML SDV ONE (23:04)
[2018-02-27] MEDS ORDERED: Ketorolac 30 MG/ML SDV IM ONE (23:09)
--- NOTE | 2018-02-27 23:14 | EDM.PDOC ---
ED HPI GENERAL MEDICAL PROBLEM - General Chief Complaint: Abdominal Pain Stated Complaint: stomach pain, headache Time Seen by Provider: 02/27/18 22:30 Source of Information: Reports: Patient, Family (mother) History Limitations: Reports: No Limitations - History of Present Illness INITIAL COMMENTS - FREE TEXT/NARRATIVE: Millie is a 32 yo female who is brought into the ER by her mother with concerns of a UTI. She was seen in clinic this morning and urinalysis was done which was negative. Mother states she still feels she has a bladder infection and is requesting a repeat urinalysis. I seen Millie in clinic this morning and we had a long discussion on fluid and calorie intake. She states she went home and drank a few gatorades and bottles of water today. She admits this evening the abdominal discomfort returned. She ended up taking a bath this evening. She had a normal bowel movement before and after the bath. She hasn't had much of an appetite but has increased her food intake today. Mother states she had a bowl of potatoes with a cream sauce on top. She hasn't had her daily coffee and has developed a headache tonight with it. She tried drinking a coke but that has not helped. She admits she is tired a lot and has been this way for quite some time. She typically gets 11-12 hours of sleep at night and will take naps through out the day as well. She denies any chance of . States she does get nauseated a lot as well. She denies eating breakfast or lunch on a typical day. Usually has first oral intake around 4 in the afternoon. Headache Pain Score (Numeric/FACES): 9 - Related Data Allergies Allergy/AdvReac Type Severity Reaction Status Date / Time amoxicillin Allergy Diarrhea Verified 02/27/18 22:14 azithromycin [From Zithromax] Allergy Nausea and Verified 02/27/18 22:14 Vomiting sulfamethoxazole Allergy Hives Verified 02/27/18 22:14 [From Bactrim] trimethoprim [From Bactrim] Allergy Hives Verified 02/27/18 22:14 Home Meds: Home Meds Sertraline HCl [Zoloft] 5 mg PO DAILY PRN 08/16/16 [History] hydrOXYzine HCl [Hydroxyzine HCl] 5 ml PO DAILY PRN 02/08/18 [History] Past Medical History HEENT History: Reports: Other (See Below) Other HEENT History: TMJ Genitourinary History: Reports: UTI, Recurrent Neurological History: Reports: Headaches, Chronic Psychiatric History: Reports: Anxiety, Depression - Past Surgical History HEENT Surgical History: Reports: Other (See Below) Musculoskeletal Surgical History: Reports: Other (See Below) Other Musculoskeletal Surgeries/Procedures:: bunion removal, hardware for an arch Social & Family History - Family History Family Medical History: Noncontributory - Tobacco Use Smoking Status *Q: Never Smoker - Caffeine Use Caffeine Use: Reports: Coffee, Soda - Recreational Drug Use Recreational Drug Use: No ED ROS GENERAL - Review of Systems Review Of Systems: See Below Constitutional: Reports: Fatigue, Decreased Appetite. Denies: Fever, Chills, Weight Gain HEENT: Reports: No Symptoms Respiratory: Reports: No Symptoms Cardiovascular: Reports: No Symptoms GI/Abdominal: Reports: Abdominal Pain, Nausea. Denies: Bloody Stool, Constipation, Diarrhea, Vomiting : Reports: Flank Pain. Denies: Dysuria, Pain, Urgency Musculoskeletal: Reports: No Symptoms Skin: Reports: No Symptoms Neurological: Reports: Headache ED EXAM, GI/ABD - Physical Exam Exam: See Below Exam Limited By: No Limitations General Appearance: Alert, No Apparent Distress, Thin Ears: Normal External Exam, Normal Canal, Hearing Grossly Normal, Normal TMs Nose: Normal Inspection, No Blood Throat/Mouth: Normal Inspection, Normal Lips, Normal Teeth, Normal Gums, Normal Oropharynx, Normal Voice, No Airway Compromise Head: Atraumatic, Normocephalic Neck: Normal Inspection, Supple Respiratory/Chest: No Respiratory Distress, Lungs Clear, Normal Breath Sounds, No Accessory Muscle Use Cardiovascular: Regular Rate, Rhythm, No Murmur GI/Abdominal Exam: Normal Bowel Sounds, Soft, Tender (generalized ). No: Distended, Guarding, Rigid, Hepatomegaly, Splenomegaly Extremities: Normal Inspection, Non-Tender, No Pedal Edema Neurological: Alert, Oriented, Normal Cognition Psychiatric: Normal Affect, Normal Mood Skin Exam: Warm, Dry, Intact, Normal Color Course - Vital Signs Last Recorded V/S: Last Vital Signs Temp 98.3 F 02/27/18 22:15 Pulse 79 02/27/18 22:15 Resp 18 02/27/18 22:15 BP 115/70 02/27/18 22:15 Pulse Ox 95 02/27/18 22:15 - Orders/Labs/Meds Orders: Active Orders 24 hr Category Date Time Status PREG URINE [HCG QUALITATIVE,URINE] [URCHEM] Stat Lab 02/27/18 22:19 Ordered UA W/MICROSCOPIC [URIN] Stat Lab 02/27/18 22:19 Ordered Labs: Laboratory Tests 02/27/18 02/27/18 02/27/18 Range/Units 22:19 22:19 22:19 WBC 5.9 (5.0-10.0) 10^3/uL RBC 4.68 (4.00-5.50) 10^6/uL Hgb 14.0 (12.0-16.0) g/dL Hct 42.0 (37.0-47.0) % MCV 89.7 (82.0-94.0) fL MCH 29.9 (27.0-32.0) pg MCHC 33.3 (33.0-38.0) g/dL RDW Coeff of [place] 12.9 (11.0-15.0) % Plt Count 160 (150-400) 10^3/uL Neut % (Auto) 58.0 (35-85) % Lymph % (Auto) 30.1 (10-55) % [place] % (Auto) 8.9 (0-16) % Eos % (Auto) 2.7 (0-5) % Baso % (Auto) 0.3 (0-3) % Neut # (Auto) 3.44 (1.80-7.00) 10^3/uL Lymph # (Auto) 1.79 (1.00-4.80) 10^3/uL [place] # (Auto) 0.53 (0.00-0.80) 10^3/uL Eos # (Auto) 0.16 (0.00-0.45) 10^3/uL Baso # (Auto) 0.02 10^3/uL Sodium (136-145) mEq/L Potassium (3.5-5.0) mEq/L Chloride (98-106) mEq/L Carbon Dioxide (21-32) mmol/L BUN (7-18) mg/dL Creatinine (0.6-1.0) mg/dL Est Cr Clr Drug Dosing mL/min Estimated GFR (MDRD) (>=60) mL/min Glucose (75-99) mg/dL Calcium (8.4-10.1) mg/dL Magnesium (1.8-2.4) mg/dL Total Bilirubin (0.0-1.0) mg/dL AST (15-37) U/L ALT (12-78) U/L Alkaline Phosphatase (46-116) U/L C-Reactive Protein (0.2-0.8) mg/dL Total Protein (6.4-8.2) g/dL Albumin (3.4-5.0) g/dL Urine Color Yellow (YELLOW) Urine Appearance Clear (CLEAR) Urine pH 6.0 (4.5-8.0) Ur Specific [place] 1.015 (1.003-1.020) Urine Protein Negative (NEGATIVE) mg/dL Urine Glucose (UA) Negative (NEGATIVE) mg/dL Urine Ketones 15 H (NEGATIVE) mg/dL Urine Occult Blood Negative (NEGATIVE) Urine Nitrite Negative (NEGATIVE) Urine Bilirubin Negative (NEGATIVE) Urine Urobilinogen 0.2 (0.2-1.0) EU/dL Ur Leukocyte Esterase Trace H (NEGATIVE) Urine RBC Not seen (0-5) /HPF Urine WBC 0-5 (0-5) /HPF Ur Squamous Epith Cells Few H (NOT SEEN) /HPF Urine Bacteria Occasional H (NOT SEEN) /HPF Urine Mucus Few H (NOT SEEN) /HPF Urine HCG, Qual Negative 02/27/18 Range/Units 22:32 WBC (5.0-10.0) 10^3/uL RBC (4.00-5.50) 10^6/uL Hgb (12.0-16.0) g/dL Hct (37.0-47.0) % MCV (82.0-94.0) fL MCH (27.0-32.0) pg MCHC (33.0-38.0) g/dL RDW Coeff of [place] (11.0-15.0) % Plt Count (150-400) 10^3/uL Neut % (Auto) (35-85) % Lymph % (Auto) (10-55) % [place] % (Auto) (0-16) % Eos % (Auto) (0-5) % Baso % (Auto) (0-3) % Neut # (Auto) (1.80-7.00) 10^3/uL Lymph # (Auto) (1.00-4.80) 10^3/uL [place] # (Auto) (0.00-0.80) 10^3/uL Eos # (Auto) (0.00-0.45) 10^3/uL Baso # (Auto) 10^3/uL Sodium 136 (136-145) mEq/L Potassium 3.9 (3.5-5.0) mEq/L Chloride 104 (98-106) mEq/L Carbon Dioxide 27 (21-32) mmol/L BUN 15 (7-18) mg/dL Creatinine 0.8 (0.6-1.0) mg/dL Est Cr Clr Drug Dosing 51.33 mL/min Estimated GFR (MDRD) > 60 (>=60) mL/min Glucose 85 D (75-99) mg/dL Calcium 8.7 (8.4-10.1) mg/dL Magnesium 2.0 (1.8-2.4) mg/dL Total Bilirubin 0.6 (0.0-1.0) mg/dL AST 16 (15-37) U/L ALT 19 (12-78) U/L Alkaline Phosphatase 65 (46-116) U/L C-Reactive Protein < 0.2 L (0.2-0.8) mg/dL Total Protein 7.4 (6.4-8.2) g/dL Albumin 4.0 (3.4-5.0) g/dL Urine Color (YELLOW) Urine Appearance (CLEAR) Urine pH (4.5-8.0) Ur Specific [place] (1.003-1.020) Urine Protein (NEGATIVE) mg/dL Urine Glucose (UA) (NEGATIVE) mg/dL Urine Ketones (NEGATIVE) mg/dL Urine Occult Blood (NEGATIVE) Urine Nitrite (NEGATIVE) Urine Bilirubin (NEGATIVE) Urine Urobilinogen (0.2-1.0) EU/dL Ur Leukocyte Esterase (NEGATIVE) Urine RBC (0-5) /HPF Urine WBC (0-5) /HPF Ur Squamous Epith Cells (NOT SEEN) /HPF Urine Bacteria (NOT SEEN) /HPF Urine Mucus (NOT SEEN) /HPF Urine HCG, Qual Departure - Departure Time of Disposition: 23:16 Disposition: Home, Self-Care 01 Clinical Impression: Ketonuria Headache Qualifiers: Headache type: unspecified Headache chronicity pattern: acute headache Intractability: not intractable Qualified Code(s): R51 - Headache - Discharge Information Referrals: Bernie Delacruz PA-C [Primary Care Provider] - 2 Days Additional Instructions: Continue to increase fluid and calorie intake, as discussed Follow up with primary provider on for referral to paper bag making machinist Will discuss with your primary provider starting appetite stimulant Return to ER if any concerns In regards to headache, may want to gradually wean off of caffeine. - Problem List & Annotations (1) Headache SNOMED Code(s): 57519698 Code(s): R51 - HEADACHE Status: Acute Current Visit: Yes Qualifiers: Headache type: unspecified Headache chronicity pattern: acute headache Intractability: not intractable Qualified Code(s): R51 - Headache (2) Ketonuria SNOMED Code(s): 553745640 Code(s): R82.4 - ACETONURIA Status: Acute Current Visit: Yes - My Orders Last 24 Hours: My Active Orders 02/27/18 22:19 PREG URINE [HCG QUALITATIVE,URINE] [URCHEM] Stat UA W/MICROSCOPIC [URIN] Stat - Assessment/Plan Last 24 Hours: My Active Orders 02/27/18 22:19 PREG URINE [HCG QUALITATIVE,URINE] [URCHEM] Stat UA W/MICROSCOPIC [URIN] Stat Plan: Laboratory work was stable. No sign of UTI. Electrolytes within normal limits. Urinalysis did show ketones in her urine, which was also present this morning. Discussed into detail with mother concerns of anorexia. I discussed her symptoms may be secondary to this. We will get her set up with paper bag making machinist. For her headache tonight we gave her Toradol intramuscularly. Again she will follow up on with her primary provider. Will discharge home at this time.
== END 2018-02-27 23:34 | disposition home or self-care (01) ==
LOC: CC.ED 22:12
DX: R82.4 Acetonuria (principal); R51 Headache; Z88.1 Allergy status to other antibiotic agents; Z88.2 Allergy status to sulfonamides; Z79.899 Other long term (current) drug therapy
CPT/HCPCS: 36415; 80053; 81001; 81025; 83735; 85025; 86140; 96372; 99283; 99284; J1885

== ENCOUNTER 2018-06-13 21:28 | Emergency (ER) | payer MEDICARE, MEDICAID ==
[2018-06-13 21:30] VITALS: BP 112/72
--- NOTE | 2018-06-13 22:07 | EDM.PDOC ---
ED HPI GENERAL MEDICAL PROBLEM - General Chief Complaint: Allergic Reaction Stated Complaint: itchy Time Seen by Provider: 06/13/18 21:57 Source of Information: Reports: Patient History Limitations: Reports: No Limitations - History of Present Illness INITIAL COMMENTS - FREE TEXT/NARRATIVE: Patient presents tonight with complaints of feeling itchy all over and feeling like her throat is getting thick. She admits to eating spaghetti earlier with known positive allergies to wheat and tomatoes. She was told she could slowly introduce these foods as she has been on allergy drops now for a while. Had chili a couple of weeks ago and did well with it so didn't feel spaghetti would cause a problem. She noted about 2 hours after eating it that she was itchy, face felt numb. Took Benadryl and Atarax at home but was worried "she would stop breathing or have problems and was worried about going to sleep". Denies any shortness of breath. No cough or wheezing. Has not developed a rash. Onset: Today, Sudden Duration: Hour(s): Location: Reports: Generalized Severity: Mild Improves with: Reports: Medication Associated Symptoms: Denies: Confusion, Chest Pain, Cough, Diaphoresis, Fever/ Chills, Loss of Appetite, Nausea/Vomiting, Rash, Shortness of Breath Treatments DIRECTOR MUSEUM OR ZOO: Reports: Other Medication(s) Other Treatments DIRECTOR [employer] ZOO: Benadryl, hydroxyzine. Throat Pain Score (Numeric/FACES): 9 - Related Data Allergies Allergy/AdvReac Type Severity Reaction Status Date / Time amoxicillin Allergy Diarrhea Verified 06/13/18 21:31 azithromycin [From Zithromax] Allergy Nausea and Verified 06/13/18 21:31 Vomiting sulfamethoxazole Allergy Hives Verified 06/13/18 21:31 [From Bactrim] trimethoprim [From Bactrim] Allergy Hives Verified 06/13/18 21:31 Home Meds: Home Meds Sertraline HCl [Zoloft] 5 mg PO DAILY PRN 08/16/16 [History] hydrOXYzine HCl [Hydroxyzine HCl] 5 ml PO DAILY PRN 02/08/18 [History] Rizatriptan Benzoate [Rizatriptan] 5 mg ASDIRECTED PRN 05/17/18 [History] Valproic Acid (As Sodium Salt) [Valproic Acid] 1 tsp PO BID 05/17/18 [History] Past Medical History HEENT History: Reports: Other (See Below) Other HEENT History: TMJ Genitourinary History: Reports: UTI, Recurrent Neurological History: Reports: Headaches, Chronic Psychiatric History: Reports: Anxiety, Depression - Past Surgical History HEENT Surgical History: Reports: Other (See Below) Musculoskeletal Surgical History: Reports: Other (See Below) Other Musculoskeletal Surgeries/Procedures:: bunion removal, hardware for an arch Social & Family History - Family History Family Medical History: Noncontributory - Tobacco Use Smoking Status *Q: Current Some Day Smoker Years of Tobacco use: 5 Packs/Tins Daily: 0 - Caffeine Use Caffeine Use: Reports: Coffee, Soda ED ROS ALLERGIC REACTION - Review of Systems Review Of Systems: See Below Constitutional: Denies: Fever, Chills, Malaise, Weakness HEENT: Reports: Other ("tongue and throat feel thick"). Denies: Ear Pain, Throat Pain, Vertigo Respiratory: Denies: Shortness of Breath, Cough Cardiovascular: Denies: Chest Pain, Edema, Lightheadedness Endocrine: Denies: Fatigue GI/Abdominal: Denies: Abdominal Pain, Nausea, Vomiting : Reports: No Symptoms Musculoskeletal: Reports: No Symptoms Skin: Reports: Pruritis Neurological: Reports: No Symptoms ED EXAM GENERAL NO PERIP PULSE - Physical Exam Exam: See Below Exam Limited By: No Limitations General Appearance: Alert, WD/WN, No Apparent Distress Ears: Normal External Exam, Normal TMs Nose: Normal Inspection, Normal Mucosa, No Blood Throat/Mouth: Normal Inspection, Normal Oropharynx, Other (speech is clear, enunciating words well. No uvular swelling. No tongue swelling.) Head: Normocephalic Neck: Normal Inspection, Supple, Non-Tender Respiratory/Chest: No Respiratory Distress, Lungs Clear, Normal Breath Sounds Cardiovascular: Normal Peripheral Pulses, Regular Rate, Rhythm Neurological: Alert, Oriented Skin Exam: Warm, Dry Course - Vital Signs Last Recorded V/S: Last Vital Signs Temp 98.8 F 06/13/18 21:28 Pulse 87 06/13/18 21:28 Resp 18 06/13/18 21:28 BP 112/72 06/13/18 21:28 Pulse Ox 100 06/13/18 21:28 - Re-Assessments/Exams Free Text/Narrative Re-Assessment/Exam: 06/13/18 22:15 Patient has been in the ER now for 45 minutes. Sats remain 100%. No rash, shortness of breath or chest discomfort. Admits may have been anxious and worried and is reassured that her oxygen levels are good. Departure - Departure Time of Disposition: 22:05 Disposition: Home, Self-Care 01 Clinical Impression: Itching - Discharge Information *PRESCRIPTION DRUG MONITORING PROGRAM REVIEWED*: No *COPY OF PRESCRIPTION DRUG MONITORING REPORT IN PATIENT DAYO: No Referrals: Lily Riddle PA [Primary Care Provider] - Forms: ED Department Discharge Additional Instructions: 1. Push fluids 2. Benadryl 50 mg every 6 hours for 4 doses 3. Avoid known allergans 4. Follow up if any ongoing concerns.
== END 2018-06-13 22:13 | disposition home or self-care (01) ==
LOC: CC.ED 21:28
DX: L29.9 Pruritus, unspecified (principal); F41.9 Anxiety disorder, unspecified; Z88.1 Allergy status to other antibiotic agents; F17.200 Nicotine dependence, unspecified, uncomplicated; Z88.2 Allergy status to sulfonamides; Z79.899 Other long term (current) drug therapy
CPT/HCPCS: 99282; 99283

== ENCOUNTER 2018-11-18 08:06 | Emergency (ER) | payer MEDICARE, MEDICAID ==
[2018-11-18 08:35] VITALS: BP 111/78
[2018-11-18 08:36] LABS: CHLORIDE,CL 103 mEq/L (98-106); SODIUM,NA 143 mEq/L (136-145)
--- NOTE | 2018-11-18 08:54 | EDM.PDOC ---
ED HPI GENERAL MEDICAL PROBLEM - General Chief Complaint: General Stated Complaint: ?UTI Time Seen by Provider: 11/18/18 08:41 Source of Information: Reports: Patient, Family (mother) History Limitations: Reports: No Limitations - History of Present Illness INITIAL COMMENTS - FREE TEXT/NARRATIVE: Millie is a 33 yo female who presents to the ED via private vehicle with complaints of not feeling well. She is questioning a UTI as she has a history and admits she was on an antibiotic for one not to long ago and ever since finishing it she hasn't felt well again. She had a bladder ultrasound that showed dome debris in the bladder and is concerned it is still there. States the last few days she hasn't been feeling well, more generalized nausea and decreased appetite. States she does have some burning with urination as well still. Lower Abdomen Pain Score (Numeric/FACES): 10 - Related Data Allergies Allergy/AdvReac Type Severity Reaction Status Date / Time amoxicillin Allergy Diarrhea Verified 11/18/18 08:07 azithromycin [From Zithromax] Allergy Nausea and Verified 11/18/18 08:07 Vomiting sulfamethoxazole Allergy Hives Verified 11/18/18 08:07 [From Bactrim] trimethoprim [From Bactrim] Allergy Hives Verified 11/18/18 08:07 Home Meds: Home Meds Sertraline HCl [Zoloft] 5 mg PO DAILY PRN 08/16/16 [History] hydrOXYzine HCl [Hydroxyzine HCl] 5 ml PO DAILY PRN 02/08/18 [History] Rizatriptan Benzoate [Rizatriptan] 5 mg PO ASDIRECTED PRN 05/17/18 [History] Past Medical History HEENT History: Reports: Other (See Below) Other HEENT History: TMJ Genitourinary History: Reports: UTI, Recurrent Neurological History: Reports: Headaches, Chronic Psychiatric History: Reports: Anxiety, Depression - Past Surgical History HEENT Surgical History: Reports: Other (See Below) Musculoskeletal Surgical History: Reports: Other (See Below) Other Musculoskeletal Surgeries/Procedures:: bunion removal, hardware for an arch Social & Family History - Family History Family Medical History: Noncontributory - Tobacco Use Smoking Status *Q: Never Smoker Second Hand Smoke Exposure: No - Caffeine Use Caffeine Use: Reports: Coffee, Soda ED ROS GENERAL - Review of Systems Review Of Systems: See Below Constitutional: Reports: Fatigue, Decreased Appetite. Denies: Fever, Chills HEENT: Reports: No Symptoms Respiratory: Reports: No Symptoms Cardiovascular: Reports: No Symptoms GI/Abdominal: Reports: Abdominal Pain, Nausea. Denies: Constipation, Diarrhea, Vomiting : Reports: Dysuria, Irregular Menses (on Nexplanon ). Denies: Hematuria, Urgency Skin: Reports: No Symptoms Neurological: Reports: Headache Psychiatric: Reports: Anxiety, Depression ED EXAM, GENERAL - Physical Exam Exam: See Below Exam Limited By: No Limitations General Appearance: Alert, No Apparent Distress, Cachetic Ears: Normal External Exam, Normal Canal, Hearing Grossly Normal, Normal TMs Nose: Normal Inspection, Normal Mucosa, No Blood Throat/Mouth: Normal Inspection, Normal Lips, Normal Gums, Normal Oropharynx, No Airway Compromise Head: Atraumatic, Normocephalic Neck: Normal Inspection, Supple Respiratory/Chest: No Respiratory Distress, Lungs Clear, Normal Breath Sounds, No Accessory Muscle Use Cardiovascular: Normal Peripheral Pulses, Regular Rate, Rhythm, No Edema, No Murmur GI/Abdominal: Normal Bowel Sounds, Soft, No Organomegaly, No Mass, Tender ( generalized) Back Exam: No: CVA Tenderness (L), CVA Tenderness (R) Extremities: Normal Inspection, No Pedal Edema Neurological: Alert, Oriented, Normal Cognition Psychiatric: Anxious, Depressed Mood, Tearful Skin Exam: Warm, Dry, Intact, Normal Color, No Rash Course - Vital Signs Last Recorded V/S: Last Vital Signs Temp 99.1 F 11/18/18 08:11 Pulse 93 11/18/18 08:11 Resp 18 11/18/18 08:11 BP 111/78 11/18/18 08:11 Pulse Ox 98 11/18/18 08:11 - Orders/Labs/Meds Labs: Laboratory Tests 11/18/18 11/18/18 11/18/18 Range/Units 08:15 08:18 08:18 WBC 4.9 L (5.0-10.0) 10^3/uL RBC 4.49 (4.00-5.50) 10^6/uL Hgb 13.9 (12.0-16.0) g/dL Hct 41.5 (37.0-47.0) % MCV 92.4 (82.0-94.0) fL MCH 31.0 (27.0-32.0) pg MCHC 33.5 (33.0-38.0) g/dL RDW Coeff of [place] 12.2 (11.0-15.0) % Plt Count 184 (150-400) 10^3/uL Neut % (Auto) 58.8 (35-85) % Lymph % (Auto) 26.3 (10-55) % [place] % (Auto) 9.4 (0-16) % Eos % (Auto) 5.1 H (0-5) % Baso % (Auto) 0.4 (0-3) % Neut # (Auto) 2.89 (1.80-7.00) 10^3/uL Lymph # (Auto) 1.29 (1.00-4.80) 10^3/uL [place] # (Auto) 0.46 (0.00-0.80) 10^3/uL Eos # (Auto) 0.25 (0.00-0.45) 10^3/uL Baso # (Auto) 0.02 10^3/uL Sodium 143 (136-145) mEq/L Potassium 4.2 (3.5-5.0) mEq/L Chloride 103 (98-106) mEq/L Carbon Dioxide 29 (21-32) mmol/L BUN 17 (7-18) mg/dL Creatinine 0.8 (0.6-1.0) mg/dL Est Cr Clr Drug Dosing 54.43 mL/min Estimated GFR (MDRD) > 60 (>=60) mL/min Glucose 90 (75-99) mg/dL Calcium 9.4 (8.4-10.1) mg/dL Total Bilirubin 0.9 (0.0-1.0) mg/dL AST 16 (15-37) U/L ALT 15 (12-78) U/L Alkaline Phosphatase 58 (46-116) U/L C-Reactive Protein < 0.2 L (0.2-0.8) mg/dL Total Protein 7.9 (6.4-8.2) g/dL Albumin 4.6 (3.4-5.0) g/dL Urine Color Yellow (YELLOW) Urine Appearance Clear (CLEAR) Urine pH 5.5 (4.5-8.0) Ur Specific [place] 1.015 (1.003-1.020) Urine Protein Negative (NEGATIVE) mg/dL Urine Glucose (UA) Negative (NEGATIVE) mg/dL Urine Ketones 40 H (NEGATIVE) mg/dL Urine Occult Blood Negative (NEGATIVE) Urine Nitrite Negative (NEGATIVE) Urine Bilirubin Negative (NEGATIVE) Urine Urobilinogen 0.2 (0.2-1.0) EU/dL Ur Leukocyte Esterase Negative (NEGATIVE) Departure - Departure Time of Disposition: 09:36 Disposition: Home, Self-Care 01 Clinical Impression: Chronic malaise, Anxiety with depression - Discharge Information Referrals: Eder Delacruz PA-C [Primary Care Provider] - Forms: ED Department Discharge Additional Instructions: 1) Will schedule with Ivon Gunn tomorrow morning and will call with appointment date and time 2) Encourage increasing fluid intake today. 3) Encourage going out for a walk today 4) May take your nausea medicine today as well 5) Try to increase oral intake. 6) Return if any concerns.; - Problem List & Annotations (1) Anxiety with depression SNOMED Code(s): 55696459, 822396146 Code(s): F41.8 - OTHER SPECIFIED ANXIETY DISORDERS Status: Acute Current Visit: Yes (2) Chronic malaise SNOMED Code(s): 550884387, 356667787 Code(s): R53.81 - OTHER MALAISE Status: Acute Current Visit: Yes - Assessment/Plan Plan: Long discussion with Millie and her mother in regards to her chronic symptoms. I discussed referral to urology for cystoscopy to rule out any other causes. Overall, we did get into the discussion about her anxiety and depression. I expressed my concerns to both Millie and her mother about depression making her feel the way she does, which she admitted is likely the cause. I discussed getting her set up with Ivoncharity Gunn tomorrow which her mother and Millie agreed would be the best thing for her. Millie requested to wait on urology consultation. I answered all questions to the best of my knowledge this morning. Labs were unremarkable. No other causes of generalized malaise, chronic nausea, etc.. found.
[2018-11-19] MEDS ORDERED: Ketorolac 30 MG/ML SDV IM PRN (20:55)
== END 2018-11-18 09:45 | disposition home or self-care (01) ==
LOC: CC.ED 08:06
DX: F41.8 Other specified anxiety disorders (principal); R53.81 Other malaise; F41.9 Anxiety disorder, unspecified; F32.9 Major depressive disorder, single episode, unspecified; Z88.1 Allergy status to other antibiotic agents; Z88.2 Allergy status to sulfonamides; Z79.899 Other long term (current) drug therapy
CPT/HCPCS: 36415; 80053; 81003; 85025; 86140; 99283

== ENCOUNTER 2018-11-21 20:41 | Emergency (ER) | payer MEDICARE, MEDICAID ==
[2018-11-21 20:46] VITALS: BP 115/87
[2018-11-21 21:06] LABS: CHLORIDE,CL 106 mEq/L (98-106); SODIUM,NA 144 mEq/L (136-145)
[2018-11-21] MEDS ORDERED: Iopamidol 510 MG/ML 50 ML SDV IVPUSH ONE (21:15)
[2018-11-21] MEDS ORDERED: Pantoprazole 40 MG Vial IVPUSH ONE (22:22)
--- NOTE | 2018-11-21 22:30 | EDM.PDOC ---
ED HPI GENERAL MEDICAL PROBLEM - General Chief Complaint: Abdominal Pain Stated Complaint: abdominal pain Time Seen by Provider: 11/21/18 21:00 Source of Information: Reports: Patient, Family History Limitations: Reports: No Limitations - History of Present Illness INITIAL COMMENTS - FREE TEXT/NARRATIVE: Patient presents to ER with ongoing abdominal pain. Has been seen for evaluation by Onur pearce, had work up done that included labs and xray which were negative. Yesterday had a repeat ultrasound of her abdomen and have yet to hear results from that. She continues to have ongoing pain to the right side of her abdomen. Mild nausea at times but admits that she has been eating. Has been having soft stools. She has multiple food allergies so mother relates is difficult to find things for her to eat at times but also reports that she has a latte every morning and sometimes doesn't eat for hours after that. She denies any blood in her stools. No urinary symptoms. She has a history of some debris in her bladder and is planning to follow up with Dr. Kamara on December 06. Did see Ivon Long earlier today as Onur had felt some of her symptoms were related to anxiety. Mother states initially they did feel that could be possible but after discussing this at home and seeing Ivon, do not believe it is causing any of her physical symptoms. Onset: Gradual Duration: Day(s): Location: Reports: Abdomen Quality: Reports: Sharp, Stabbing Severity: Severe Improves with: Reports: None Associated Symptoms: Reports: Nausea/Vomiting. Denies: Chest Pain, Cough, Fever /Chills, Loss of Appetite, Shortness of Breath Right Abdominal Pain Score (Numeric/FACES): 10 - Related Data Allergies Allergy/AdvReac Type Severity Reaction Status Date / Time amoxicillin Allergy Diarrhea Verified 11/21/18 20:46 azithromycin [From Zithromax] Allergy Nausea and Verified 11/21/18 20:46 Vomiting sulfamethoxazole Allergy Hives Verified 11/21/18 20:46 [From Bactrim] trimethoprim [From Bactrim] Allergy Hives Verified 11/21/18 20:46 Home Meds: Home Meds Sertraline HCl [Zoloft] 5 mg PO DAILY PRN 08/16/16 [History] hydrOXYzine HCl [Hydroxyzine HCl] 5 ml PO DAILY PRN 02/08/18 [History] Rizatriptan Benzoate [Rizatriptan] 5 mg PO ASDIRECTED PRN 05/17/18 [History] Past Medical History HEENT History: Reports: Other (See Below) Other HEENT History: TMJ Genitourinary History: Reports: UTI, Recurrent Neurological History: Reports: Headaches, Chronic Psychiatric History: Reports: Anxiety, Depression - Past Surgical History HEENT Surgical History: Reports: Other (See Below) Musculoskeletal Surgical History: Reports: Other (See Below) Other Musculoskeletal Surgeries/Procedures:: bunion removal, hardware for an arch Social & Family History - Family History Family Medical History: Noncontributory - Tobacco Use Smoking Status *Q: Former Smoker Used Tobacco, but Quit: Yes Month/Year Tobacco Last Used: 2016 - Caffeine Use Caffeine Use: Reports: Coffee ED ROS GENERAL - Review of Systems Review Of Systems: See Below Constitutional: Reports: Chills, Fatigue. Denies: Fever, Decreased Appetite HEENT: Reports: No Symptoms Respiratory: Denies: Shortness of Breath, Cough Cardiovascular: Denies: Chest Pain, Edema Endocrine: Denies: Fatigue GI/Abdominal: Reports: Abdominal Pain, Nausea. Denies: Constipation, Diarrhea, Decreased Appetite, Vomiting : Reports: No Symptoms Musculoskeletal: Reports: No Symptoms Skin: Reports: No Symptoms Neurological: Reports: No Symptoms Psychiatric: Reports: No Symptoms ED EXAM, GI/ABD - Physical Exam Exam: See Below Exam Limited By: No Limitations General Appearance: Alert, WD/WN, No Apparent Distress Ears: Normal External Exam, Normal TMs Nose: Normal Inspection, Normal Mucosa, No Blood Throat/Mouth: Normal Inspection, Normal Oropharynx Head: Normocephalic Neck: Normal Inspection, Supple, Non-Tender Respiratory/Chest: No Respiratory Distress, Lungs Clear, Normal Breath Sounds Cardiovascular: Regular Rate, Rhythm GI/Abdominal Exam: Normal Bowel Sounds, Soft, Tender (tender to midepigastric area.) Extremities: Normal Inspection, No Pedal Edema Neurological: Alert, Oriented Skin Exam: Warm, Dry Course - Vital Signs Last Recorded V/S: Last Vital Signs Temp 99.8 F 11/21/18 20:43 Pulse 73 11/21/18 20:43 Resp 18 11/21/18 20:43 BP 115/87 11/21/18 20:43 Pulse Ox 100 11/21/18 20:43 - Orders/Labs/Meds Orders: Active Orders 24 hr Category Date Time Status Abdomen Pelvis w Cont [CT] Stat Exams 11/21/18 21:22 Taken Labs: Laboratory Tests 11/21/18 11/21/18 11/21/18 Range/Units 20:49 20:55 20:55 WBC 6.8 (5.0-10.0) 10^3/uL RBC 4.30 (4.00-5.50) 10^6/uL Hgb 13.3 (12.0-16.0) g/dL Hct 40.2 (37.0-47.0) % MCV 93.5 (82.0-94.0) fL MCH 30.9 (27.0-32.0) pg MCHC 33.1 (33.0-38.0) g/dL RDW Coeff of Ayaka 12.4 (11.0-15.0) % Plt Count 168 (150-400) 10^3/uL Neut % (Auto) 61.3 (35-85) % Lymph % (Auto) 21.2 (10-55) % [place] % (Auto) 12.4 (0-16) % Eos % (Auto) 4.7 (0-5) % Baso % (Auto) 0.4 (0-3) % Neut # (Auto) 4.16 (1.80-7.00) 10^3/uL Lymph # (Auto) 1.44 (1.00-4.80) 10^3/uL [place] # (Auto) 0.84 H (0.00-0.80) 10^3/uL Eos # (Auto) 0.32 (0.00-0.45) 10^3/uL Baso # (Auto) 0.03 10^3/uL Sodium 144 (136-145) mEq/L Potassium 4.6 (3.5-5.0) mEq/L Chloride 106 (98-106) mEq/L Carbon Dioxide 30 (21-32) mmol/L BUN 11 (7-18) mg/dL Creatinine 0.7 (0.6-1.0) mg/dL Est Cr Clr Drug Dosing 62.21 mL/min Estimated GFR (MDRD) > 60 (>=60) mL/min Glucose 89 (75-99) mg/dL Calcium 9.1 (8.4-10.1) mg/dL C-Reactive Protein < 0.2 L (0.2-0.8) mg/dL Urine Color Yellow (YELLOW) Urine Appearance Cloudy (CLEAR) Urine pH 7.5 (4.5-8.0) Ur Specific [place] 1.020 (1.003-1.020) Urine Protein Negative (NEGATIVE) mg/dL Urine Glucose (UA) Negative (NEGATIVE) mg/dL Urine Ketones Negative (NEGATIVE) mg/dL Urine Occult Blood Negative (NEGATIVE) Urine Nitrite Negative (NEGATIVE) Urine Bilirubin Negative (NEGATIVE) Urine Urobilinogen 1.0 (0.2-1.0) EU/dL Ur Leukocyte Esterase Trace H (NEGATIVE) Urine RBC Not seen (0-5) /HPF Urine WBC 0-5 (0-5) /HPF Ur Epithelial Cells Moderate H (NOT SEEN) /HPF Amorphous Sediment Moderate H (NOT SEEN) /HPF Urine Bacteria Few H (NOT SEEN) /HPF Urine Mucus Few H (NOT SEEN) /HPF Meds: Medications Discontinued Medications Generic Name Dose Route Start Last Admin Trade Name Freq PRN Reason Stop Dose Admin Iopamidol 100 ml 11/21/18 21:15 11/21/18 21:42 Isovue-250 (51%) IVPUSH 11/21/18 21:16 75 ml ONETIME ONE Administration Pantoprazole Sodium 40 mg 11/21/18 22:22 11/21/18 22:29 Protonix Iv IVPUSH 11/21/18 22:23 40 mg ONETIME ONE Administration - Re-Assessments/Exams Free Text/Narrative Re-Assessment/Exam: 11/21/18 Labs all normal. Planned to proceed with CT scan of abdomen and pelvis with contrast but patient refused to drink more than a sip of contrast as she said "it made her more ill". Proceed with CT with IV contrast only. 2330-CT scan negative for concern. Did have radiologist review gallbladder as mother also concerned about that. No inflammation noted. Advised both patient and mother of all results. Will start Protonix granules daily. Follow up if persisting pain or concern. Departure - Departure Time of Disposition: 22:30 Disposition: Home, Self-Care 01 Condition: Good Clinical Impression: Abdominal pain Qualifiers: Abdominal location: right lower quadrant Qualified Code(s): R10.31 - Right lower quadrant pain - Discharge Information *PRESCRIPTION DRUG MONITORING PROGRAM REVIEWED*: No *COPY OF PRESCRIPTION DRUG MONITORING REPORT IN PATIENT DAYO: No Referrals: PCP,Unknown [Primary Care Provider] - Forms: ED Department Discharge Additional Instructions: 1. Push fluids 2. Protonix granules daily 3. May use Pepcid Complete 4. Follow up if ongoing concerns - My Orders Last 24 Hours: My Active Orders 11/21/18 21:22 Abdomen Pelvis w Cont [CT] Stat - Assessment/Plan Last 24 Hours: My Active Orders 11/21/18 21:22 Abdomen Pelvis w Cont [CT] Stat
== END 2018-11-21 22:41 | disposition home or self-care (01) ==
LOC: CC.ED 20:41
DX: R10.31 Right lower quadrant pain (principal); Z88.1 Allergy status to other antibiotic agents; Z79.899 Other long term (current) drug therapy; Z87.891 Personal history of nicotine dependence
CPT/HCPCS: 36415; 74177; 80048; 81001; 85025; 86140; 96374; 99284; C9113; Q9966

== ENCOUNTER 2019-09-29 18:25 | Emergency (ER) | payer MEDICARE, MEDICAID ==
[2019-09-29 18:37] VITALS: BP 124/91; PULSE 119
--- NOTE | 2019-09-29 18:38 | EDM.PDOC ---
ED HPI GENERAL MEDICAL PROBLEM - General Chief Complaint: General Time Seen by Provider: 09/29/19 18:33 Source of Information: Reports: Patient, Family History Limitations: Reports: No Limitations - History of Present Illness INITIAL COMMENTS - FREE TEXT/NARRATIVE: Patient to the emergency department with family complaining of sore throat cough fever and chills for the past week. The patient was seen on Monday and given an antibiotic of Omnicef and this was not filled until . The patient denies pain in the ears she denies any unusual neck, back pain or stiffness she denies any chest pain or shortness of breath again does have a cough that is productive with yellow sputum, she denies any abdominal pain has had some nausea no vomiting diarrhea no constipation no rash Onset: Gradual Duration: Day(s): (7 days) Location: Reports: Other (As above) Quality: Reports: Ache Severity: Moderate Improves with: Reports: None Worsens with: Reports: None Associated Symptoms: Reports: Cough, Fever/Chills, Nausea/Vomiting (Nausea without vomiting). Denies: Chest Pain, Headaches, Rash, Shortness of Breath, Weakness Treatments BARREL WASHER: Reports: Acetaminophen, NSAIDS, Other (see below) (Omnicef started on ) chest,mouth,nose Pain Score (Numeric/FACES): 9 - Related Data Allergies Allergy/AdvReac Type Severity Reaction Status Date / Time amoxicillin Allergy Diarrhea Verified 09/29/19 19:06 azithromycin [From Zithromax] Allergy Nausea and Verified 09/29/19 19:06 Vomiting sulfamethoxazole Allergy Hives Verified 09/29/19 19:06 [From Bactrim] trimethoprim [From Bactrim] Allergy Hives Verified 09/29/19 19:06 Home Meds: Home Meds Sertraline HCl [Zoloft] 5 mg PO DAILY PRN 08/16/16 [History] hydrOXYzine HCl [Hydroxyzine HCl] 5 ml PO DAILY PRN 02/08/18 [History] Rizatriptan Benzoate [Rizatriptan] 5 mg PO ASDIRECTED PRN 05/17/18 [History] Past Medical History HEENT History: Reports: Other (See Below) Other HEENT History: TMJ Genitourinary History: Reports: UTI, Recurrent Neurological History: Reports: Headaches, Chronic Psychiatric History: Reports: Anxiety, Depression - Past Surgical History HEENT Surgical History: Reports: Other (See Below) Musculoskeletal Surgical History: Reports: Other (See Below) Other Musculoskeletal Surgeries/Procedures:: bunion removal, hardware for an arch Social & Family History - Family History Family Medical History: Noncontributory - Caffeine Use Caffeine Use: Reports: Coffee ED ROS GENERAL - Review of Systems Review Of Systems: See Below Constitutional: Reports: Fever, Chills HEENT: Reports: Throat Pain. Denies: Ear Pain, Sinus Problem Respiratory: Reports: Cough. Denies: Shortness of Breath Cardiovascular: Denies: Chest Pain Endocrine: Reports: No Symptoms GI/Abdominal: Reports: Nausea. Denies: Abdominal Pain, Other : Reports: No Symptoms Musculoskeletal: Reports: Muscle Pain. Denies: Neck Pain, Back Pain Skin: Reports: No Symptoms. Denies: Rash, Erythema Neurological: Reports: No Symptoms. Denies: Dizziness, Headache Psychiatric: Reports: No Symptoms ED EXAM, GENERAL - Physical Exam Exam: See Below Exam Limited By: No Limitations General Appearance: Alert, WD/WN, No Apparent Distress Ears: Normal External Exam, Normal Canal, Hearing Grossly Normal, Normal TMs Ear Exam: Left Ear: Auricle Normal, Canal Normal, TM normal Nose: Normal Inspection, Normal Mucosa Throat/Mouth: Normal Inspection, Normal Teeth, Normal Gums, Normal Oropharynx, Normal Voice, No Airway Compromise Head: Atraumatic, Normocephalic Neck: Normal Inspection, Supple, Non-Tender, Full Range of Motion. No: Lymphadenopathy (L), Lymphadenopathy (R) Respiratory/Chest: No Respiratory Distress, Lungs Clear, Normal Breath Sounds, No Accessory Muscle Use, Chest Non-Tender Cardiovascular: Normal Peripheral Pulses, Regular Rate, Rhythm, No Murmur Peripheral Pulses: 2+: Radial (L), Radial (R) GI/Abdominal: Soft, Non-Tender, No Distention Back Exam: Normal Inspection, Full Range of Motion Extremities: Normal Inspection, Normal Range of Motion, Non-Tender, Normal Capillary Refill Neurological: Alert, Oriented, Normal Cognition, Normal Gait, No Motor/Sensory Deficits Psychiatric: Normal Affect, Normal Mood Skin Exam: Warm, Dry, Intact, Normal Color, No Rash Course - Vital Signs Text/Narrative:: The patient was evaluated in the emergency department, CBC and general chemistries are essentially negative CRP is normal chest x-ray is normal does not show any pneumonia, the influenza is neg, pt will be dc to follow current medications and f/u with pcp this week Last Recorded V/S: Last Vital Signs Temp 37.6 C 09/29/19 18:35 Pulse 119 H 09/29/19 18:35 Resp 20 09/29/19 18:35 BP 124/91 H 09/29/19 18:35 Pulse Ox 99 09/29/19 18:35 - Orders/Labs/Meds Orders: Active Orders 24 hr Category Date Time Status Chest 2V [CR] Stat Exams 09/29/19 18:33 Taken Labs: Laboratory Tests 09/29/19 09/29/19 09/29/19 Range/Units 18:46 18:46 19:03 WBC 5.5 (5.0-10.0) 10^3/uL RBC 4.84 (4.00-5.50) 10^6/uL Hgb 14.4 (12.0-16.0) g/dL Hct 43.9 (37.0-47.0) % MCV 90.7 (82.0-94.0) fL MCH 29.8 (27.0-32.0) pg MCHC 32.8 L (33.0-38.0) g/dL RDW Coeff of Ayaka 12.1 (11.0-15.0) % Plt Count 199 (150-400) 10^3/uL Add Manual Diff Yes Neutrophils % (Manual) 51 (35-85) % Lymphocytes % (Manual) 25 (21-55) % Monocytes % (Manual) 8 (2-12) % Eosinophils % (Manual) 16 H (0-5) % Absolute Neutrophils 2.81 (1.80-7.00) 10^3/uL Lymphocytes # (Manual) 1.38 (1.00-4.80) 10^3/uL Monocytes # (Manual) 0.44 (0.00-0.80) 10^3/uL Eosinophils # (Manual) 0.88 H (0.00-0.45) 10^3/uL Sodium 141 (136-145) mEq/L Potassium 3.9 (3.5-5.0) mEq/L Chloride 103 (98-106) mEq/L Carbon Dioxide 31 (21-32) mmol/L BUN 12 D (7-18) mg/dL Creatinine 0.8 (0.6-1.0) mg/dL Est Cr Clr Drug Dosing TNP Estimated GFR (MDRD) > 60 (>=60) mL/min Glucose 90 (75-99) mg/dL Calcium 9.3 (8.4-10.1) mg/dL C-Reactive Protein < 0.2 L (0.2-0.8) mg/dL Urine Color Yellow (YELLOW) Urine Appearance Slightly cloudy (CLEAR) Urine pH 7.0 (4.5-8.0) Ur Specific [place] 1.025 H (1.003-1.020) Urine Protein Negative (NEGATIVE) mg/dL Urine Glucose (UA) Negative (NEGATIVE) mg/dL Urine Ketones Negative (NEGATIVE) mg/dL Urine Occult Blood Negative (NEGATIVE) Urine Nitrite Negative (NEGATIVE) Urine Bilirubin Negative (NEGATIVE) Urine Urobilinogen 0.2 (0.2-1.0) EU/dL Ur Leukocyte Esterase Trace H (NEGATIVE) Urine RBC Not seen (0-5) /HPF Urine WBC 10-20 H (0-5) /HPF Ur Epithelial Cells Many H (NOT SEEN) /HPF Urine Bacteria Few H (NOT SEEN) /HPF Urine Mucus Few H (NOT SEEN) /HPF Urinalysis Comment See note Departure - Departure Time of Disposition: 19:22 Disposition: Home, Self-Care 01 Condition: Good Clinical Impression: Pharyngitis, Bronchitis - Discharge Information *PRESCRIPTION DRUG MONITORING PROGRAM REVIEWED*: Not Applicable *COPY OF PRESCRIPTION DRUG MONITORING REPORT IN PATIENT DAYO: Not Applicable Instructions: Pharyngitis, [id number], Upper Respiratory Infection, Adult, [id number] Forms: ED Department Discharge Additional Instructions: increase fluids alternate tylenol and motrin as needed for fever continue current medications follow up with your family doctor this week return to ER as needed Sepsis Event Note - Focused Exam Vital Signs: Vital Signs Temp Pulse Resp BP Pulse Ox 09/29/19 18:35 37.6 C 119 H 20 124/91 H 99 Date Exam was Performed: 09/29/19 Time Exam was Performed: 19:21 - Problem List & Annotations (1) Bronchitis SNOMED Code(s): 48605815 Code(s): J40 - BRONCHITIS, NOT SPECIFIED ACUTE OR CHRONIC Status: Acute Priority: Medium Current Visit: Yes (2) Pharyngitis SNOMED Code(s): 407933519 Code(s): J02.9 - ACUTE PHARYNGITIS, UNSPECIFIED Status: Acute Priority: Medium Current Visit: Yes Qualifiers: Pharyngitis/tonsillitis etiology: unspecified etiology Qualified Code(s): J02.9 - Acute pharyngitis, unspecified - Problem List Review Problem List Initiated/Reviewed/Updated: Yes - My Orders Last 24 Hours: My Active Orders 09/29/19 18:33 Chest 2V [CR] Stat - Assessment/Plan Last 24 Hours: My Active Orders 09/29/19 18:33 Chest 2V [CR] Stat Plan: as above
[2019-09-29 18:55] LABS: CHLORIDE,CL 103 mEq/L (98-106); SODIUM,NA 141 mEq/L (136-145)
== END 2019-09-29 19:30 | disposition home or self-care (01) ==
LOC: CC.ED 18:25
DX: J02.9 Acute pharyngitis, unspecified (principal); J40 Bronchitis, not specified as acute or chronic; F41.9 Anxiety disorder, unspecified; F32.9 Major depressive disorder, single episode, unspecified; Z88.2 Allergy status to sulfonamides; Z88.1 Allergy status to other antibiotic agents; Z79.899 Other long term (current) drug therapy
CPT/HCPCS: 36415; 71046; 80048; 81001; 85025; 86140; 87804; 99283; 99283-25

== ENCOUNTER 2019-11-25 16:15 | Emergency (ER) | payer MEDICARE, MEDICAID ==
[2019-11-25 16:36] VITALS: BP 104/72; PULSE 84
[2019-11-25 16:56] LABS: CHLORIDE,CL 104 mEq/L (98-106); SODIUM,NA 140 mEq/L (136-145)
--- NOTE | 2019-11-25 17:10 | EDM.PDOC ---
ED HPI GENERAL MEDICAL PROBLEM - General Chief Complaint: Abdominal Pain Stated Complaint: ABD PAIN Time Seen by Provider: 11/25/19 16:49 Source of Information: Reports: Patient History Limitations: Reports: No Limitations - History of Present Illness INITIAL COMMENTS - FREE TEXT/NARRATIVE: continued lower quadrant abdominal pain. Was seen in the clinic for lower quadrant abdominal pain and had normal lab results and had pelvic US and was found to be negative. She states that she basically has no appetite and is cold. She states that the pain was worse at home than it is now. She states that sometimes it hurts to urinate. She denies any vomiting or diarrhea. She has been drinking and states that it causes pain immediately. She states that she has no upper abdominal pain that her pain is across the lower abdomen. She did have her period last week which is now over. She denies any fever at home. Does admit to feeling stressed out and anxious over the COVID. Onset: Gradual Duration: Intermittent Location: Reports: Abdomen Associated Symptoms: Reports: Loss of Appetite Treatments TELEPHONE STATION INSTALLER: Reports: Heat Therapy, Other (see below) Other Treatments TELEPHONE STATION INSTALLER: "made it worse" "tylenol with codiene helped me get through the night" left and right lower abdomen Pain Score (Numeric/FACES): 11 - Related Data Allergies Allergy/AdvReac Type Severity Reaction Status Date / Time amoxicillin Allergy Diarrhea Verified 11/25/19 16:49 azithromycin [From Zithromax] Allergy Nausea and Verified 11/25/19 16:49 Vomiting sulfamethoxazole Allergy Hives Verified 11/25/19 16:49 [From Bactrim] trimethoprim [From Bactrim] Allergy Hives Verified 11/25/19 16:49 Home Meds: Home Meds Sertraline HCl [Zoloft] 5 mg PO DAILY PRN 08/16/16 [History] hydrOXYzine HCl [Hydroxyzine HCl] 5 ml PO DAILY PRN 02/08/18 [History] Rizatriptan Benzoate [Rizatriptan] 5 mg PO ASDIRECTED PRN 05/17/18 [History] Past Medical History HEENT History: Reports: Other (See Below) Other HEENT History: TMJ Genitourinary History: Reports: UTI, Recurrent Neurological History: Reports: Headaches, Chronic Psychiatric History: Reports: Anxiety, Depression - Past Surgical History HEENT Surgical History: Reports: Other (See Below) Musculoskeletal Surgical History: Reports: Other (See Below) Other Musculoskeletal Surgeries/Procedures:: bunion removal, hardware for an arch Social & Family History - Family History Family Medical History: Noncontributory - Tobacco Use Smoking Status *Q: Never Smoker - Caffeine Use Caffeine Use: Reports: Coffee - Living Situation & Occupation Living situation: Reports: Single, with Family Occupation: Unemployed ED ROS GENERAL - Review of Systems Review Of Systems: See Below Constitutional: Reports: Decreased Appetite. Denies: Fever, Chills Respiratory: Reports: No Symptoms Cardiovascular: Reports: No Symptoms GI/Abdominal: Reports: Abdominal Pain, Decreased Appetite. Denies: Constipation , Diarrhea, Difficulty Swallowing, Nausea, Vomiting : Denies: Dysuria Skin: Reports: No Symptoms Psychiatric: Reports: Anxiety ED EXAM, GI/ABD - Physical Exam Exam: See Below Exam Limited By: No Limitations General Appearance: Alert, WD/WN, Mild Distress Ears: Normal External Exam, Normal Canal Throat/Mouth: Normal Inspection, Normal Oropharynx Neck: Supple, Non-Tender Respiratory/Chest: No Respiratory Distress, Lungs Clear, Normal Breath Sounds Cardiovascular: Regular Rate, Rhythm GI/Abdominal Exam: Normal Bowel Sounds, Soft, Tender (mild tenderness noted to the lower abdomen. I am able to palpate without ellictng any pain. When seen in the clinic last week she was much more tender in the right lower quadrant. She states that currently her pain is almost gone and still rates it 9/10.) Extremities: Normal Capillary Refill Neurological: Alert, Oriented Skin Exam: Warm, Dry, Intact Course - Vital Signs Last Recorded V/S: Last Vital Signs Temp 98.2 F 11/25/19 16:28 Pulse 84 11/25/19 16:28 Resp 20 11/25/19 16:28 BP 104/72 11/25/19 16:28 Pulse Ox 100 11/25/19 16:28 - Orders/Labs/Meds Labs: Laboratory Tests 11/25/19 11/25/19 11/25/19 Range/Units 16:37 16:46 16:46 WBC 8.2 (5.0-10.0) 10^3/uL RBC 4.57 (4.00-5.50) 10^6/uL Hgb 13.5 (12.0-16.0) g/dL Hct 41.7 (37.0-47.0) % MCV 91.2 (82.0-94.0) fL MCH 29.5 (27.0-32.0) pg MCHC 32.4 L (33.0-38.0) g/dL RDW Coeff of Ayaka 12.3 (11.0-15.0) % Plt Count 191 (150-400) 10^3/uL Neut % (Auto) 72.0 (35-85) % Lymph % (Auto) 17.2 (10-55) % [place] % (Auto) 4.7 (0-16) % Eos % (Auto) 5.9 H (0-5) % Baso % (Auto) 0.2 (0-3) % Neut # (Auto) 5.87 (1.80-7.00) 10^3/uL Lymph # (Auto) 1.40 (1.00-4.80) 10^3/uL [place] # (Auto) 0.38 (0.00-0.80) 10^3/uL Eos # (Auto) 0.48 H (0.00-0.45) 10^3/uL Baso # (Auto) 0.02 10^3/uL Sodium 140 (136-145) mEq/L Potassium 3.4 L (3.5-5.0) mEq/L Chloride 104 (98-106) mEq/L Carbon Dioxide 30 (21-32) mmol/L BUN 10 (7-18) mg/dL Creatinine 0.8 (0.6-1.0) mg/dL Est Cr Clr Drug Dosing 60.31 mL/min Estimated GFR (MDRD) > 60 (>=60) mL/min Glucose 93 (75-99) mg/dL Calcium 7.9 L (8.4-10.1) mg/dL C-Reactive Protein < 0.2 L (0.2-0.8) mg/dL Urine Color Yellow (YELLOW) Urine Appearance Clear (CLEAR) Urine pH 7.5 (4.5-8.0) Ur Specific [place] 1.020 (1.003-1.020) Urine Protein Negative (NEGATIVE) mg/dL Urine Glucose (UA) Negative (NEGATIVE) mg/dL Urine Ketones Negative (NEGATIVE) mg/dL Urine Occult Blood Trace-intact H (NEGATIVE) Urine Nitrite Negative (NEGATIVE) Urine Bilirubin Negative (NEGATIVE) Urine Urobilinogen 0.2 (0.2-1.0) EU/dL Ur Leukocyte Esterase Trace H (NEGATIVE) Urine RBC Not seen (0-5) /HPF Urine WBC 0-5 (0-5) /HPF Ur Epithelial Cells Few H (NOT SEEN) /HPF Urine Bacteria Few H (NOT SEEN) /HPF Departure - Departure Time of Disposition: 17:07 Disposition: Home, Self-Care 01 Condition: Good Clinical Impression: Anxiety with depression Abdominal pain Qualifiers: Abdominal location: lower abdomen, unspecified Qualified Code(s): R10.30 - Lower abdominal pain, unspecified - Discharge Information *PRESCRIPTION DRUG MONITORING PROGRAM REVIEWED*: Not Applicable *COPY OF PRESCRIPTION DRUG MONITORING REPORT IN PATIENT DAYO: Not Applicable Instructions: Abdominal Pain, Adult, [id number] Forms: ED Department Discharge Additional Instructions: start the carafate 3 times a day for 1 week. put pill in 1-2 ounces of water and dissolve it and drink quickly call clinic in a week for update on how you are doing Ultrasound and lab work is all normal. Recheck in clinic if any new concerns arise or if any questions. Sepsis Event Note - Evaluation Sepsis Screening Result: No Definite Risk - Focused Exam Vital Signs: Vital Signs Temp Pulse Resp BP Pulse Ox 11/25/19 16:28 98.2 F 84 20 104/72 100 Date Exam was Performed: 11/25/19 Time Exam was Performed: 17:11 - Assessment/Plan Plan: will try on course of carafate for the next 7 days to see if this will help with the abdominal discomfort. Discussed need to call Ivon Gunn in clinic if anxiety is getting worse for med adjustment.
== END 2019-11-25 17:17 | disposition home or self-care (01) ==
LOC: CC.ED 16:15
DX: R10.31 Right lower quadrant pain (principal); R10.32 Left lower quadrant pain; F41.9 Anxiety disorder, unspecified; F32.9 Major depressive disorder, single episode, unspecified; Z88.1 Allergy status to other antibiotic agents; Z88.2 Allergy status to sulfonamides; Z79.899 Other long term (current) drug therapy
CPT/HCPCS: 36415; 80048; 81001; 85025; 86140; 99284

== ENCOUNTER 2020-01-18 02:08 | Emergency (ER) | payer MEDICARE, MEDICAID ==
--- NOTE | 2020-01-18 02:53 | EDM.PDOC ---
ED HPI GENERAL MEDICAL PROBLEM - General Chief Complaint: Genitourinary Problem Stated Complaint: sinus congestion and urinarinating alot" Time Seen by Provider: 01/18/20 02:52 Source of Information: Reports: Patient History Limitations: Reports: No Limitations - History of Present Illness INITIAL COMMENTS - FREE TEXT/NARRATIVE: This patient is a 34 year old female that presents to the ER. Patient reports that for the last 4 days she has been having bilateral ear pressure, frontal headache, congestion. She also reports urinary frequency. She reports she also had left foot surgery in early December, no complaints with that. Denies fever, vomiting. Onset Date: 01/14/20 Duration: Day(s): (4) Location: Reports: Head Severity: Mild Improves with: Reports: None Worsens with: Reports: None Associated Symptoms: Reports: Headaches (frontal sinus). Denies: Confusion, Chest Pain, Cough, cough w sputum, Diaphoresis, Fever/Chills, Loss of Appetite, Malaise, Nausea/Vomiting, Rash, Seizure, Shortness of Breath, Syncope, Weakness - Related Data Allergies Allergy/AdvReac Type Severity Reaction Status Date / Time amoxicillin Allergy Diarrhea Verified 01/18/20 02:34 azithromycin [From Zithromax] Allergy Nausea and Verified 01/18/20 02:34 Vomiting sulfamethoxazole Allergy Hives Verified 01/18/20 02:34 [From Bactrim] trimethoprim [From Bactrim] Allergy Hives Verified 01/18/20 02:34 Home Meds: Home Meds Sertraline HCl [Zoloft] 5 mg PO DAILY PRN 08/16/16 [History] hydrOXYzine HCl [Hydroxyzine HCl] 5 ml PO DAILY PRN 02/08/18 [History] Rizatriptan Benzoate [Rizatriptan] 5 mg PO ASDIRECTED PRN 05/17/18 [History] Cefdinir [Omnicef 250 MG/5 ML Susp] 250 mg PO BID 7 Days bottle 01/18/20 [Rx] Past Medical History HEENT History: Reports: Other (See Below) Other HEENT History: TMJ Genitourinary History: Reports: UTI, Recurrent Neurological History: Reports: Headaches, Chronic Psychiatric History: Reports: Anxiety, Depression - Past Surgical History HEENT Surgical History: Reports: Other (See Below) Musculoskeletal Surgical History: Reports: Other (See Below) Other Musculoskeletal Surgeries/Procedures:: bunion removal, hardware for an arch Social & Family History - Family History Family Medical History: Noncontributory - Tobacco Use Smoking Status *Q: Never Smoker Second Hand Smoke Exposure: No - Caffeine Use Caffeine Use: Reports: Coffee - Living Situation & Occupation Living situation: Reports: Single, with Family Occupation: Unemployed ED ROS ENT - Review of Systems Review Of Systems: See Below Constitutional: Reports: No Symptoms HEENT: Reports: Sinus Problem, Throat Pain Respiratory: Reports: No Symptoms Cardiovascular: Reports: No Symptoms Endocrine: Reports: No Symptoms GI/Abdominal: Reports: No Symptoms. Denies: Abdominal Pain, Nausea, Vomiting : Reports: No Symptoms Musculoskeletal: Reports: No Symptoms Skin: Reports: No Symptoms Neurological: Reports: No Symptoms. Denies: Headache (sinus related), Seizure, Syncope Psychiatric: Reports: No Symptoms Hematologic/Lymphatic: Reports: No Symptoms Immunologic: Reports: No Symptoms ED EXAM, ENT - Physical Exam Exam: See Below Exam Limited By: No Limitations General Appearance: Alert, WD/WN, No Apparent Distress Eye Exam: Bilateral Eye: Normal Inspection, PERRL Ears: Normal External Exam, Normal Canal, Hearing Grossly Normal, Normal TMs Nose: Normal Inspection, Normal Mucousa, No Blood Mouth/Throat: Normal Inspection, Normal Gums, Normal Lips, Normal Oropharynx, Normal Teeth Head: Atraumatic, Normocephalic Neck: Normal Inspection, Supple, Non-Tender, Full Range of Motion Respiratory/Chest: No Respiratory Distress, Lungs Clear, Normal Breath Sounds, No Accessory Muscle Use Cardiovascular: Normal Peripheral Pulses, Regular Rate, Rhythm, No Edema, No Gallop, No JVD, No Murmur, No Rub GI/Abdominal: Soft, Non-Tender Back: Normal Inspection, Full Range of Motion. No: CVA Tenderness (L), CVA Tenderness (R) Extremities: Normal Range of Motion, No Pedal Edema, Normal Capillary Refill, Other (LLE in a splint: This was removed for exam. Surgical wounds with steri strips in place. mulitple. No drainge, no redness, no heat. no signs of infection. ). No: Limited Range of Motion, Increased Warmth Neurological: Alert, Oriented Psychiatric: Normal Affect, Normal Mood Skin: Warm, Dry, Intact, Normal Color, No Rash Lymphatic: No Adenopathy Course - Vital Signs Last Recorded V/S: Last Vital Signs Temp 98.7 F 01/18/20 02:53 Pulse 100 01/18/20 02:53 Resp 20 01/18/20 02:53 BP 102/71 01/18/20 02:53 Pulse Ox 99 01/18/20 02:53 - Orders/Labs/Meds Labs: Laboratory Tests 01/18/20 01/18/20 Range/Units 02:39 02:39 Urine Color Yellow (YELLOW) Urine Appearance Clear (CLEAR) Urine pH 5.5 (4.5-8.0) Ur Specific [place] 1.025 H (1.003-1.020) Urine Protein Negative (NEGATIVE) mg/dL Urine Glucose (UA) Negative (NEGATIVE) mg/dL Urine Ketones >=160 H (NEGATIVE) mg/dL Urine Occult Blood Negative (NEGATIVE) Urine Nitrite Negative (NEGATIVE) Urine Bilirubin Negative (NEGATIVE) Urine Urobilinogen 0.2 (0.2-1.0) EU/dL Ur Leukocyte Esterase Negative (NEGATIVE) Urine RBC Not seen (0-5) /HPF Urine WBC 0-5 (0-5) /HPF Ur Squamous Epith Cells Few H (NOT SEEN) /HPF Urine Bacteria Few H (NOT SEEN) /HPF Urine Mucus Few H (NOT SEEN) /HPF Urine HCG, Qual Negative Departure - Departure Time of Disposition: 02:56 Disposition: Home, Self-Care 01 Condition: Good Clinical Impression: Sinusitis Qualifiers: Sinusitis location: frontal Chronicity: acute Recurrence: non-recurrent Qualified Code(s): J01.10 - Acute frontal sinusitis, unspecified - Discharge Information *PRESCRIPTION DRUG MONITORING PROGRAM REVIEWED*: Not Applicable *COPY OF PRESCRIPTION DRUG MONITORING REPORT IN PATIENT DAYO: Not Applicable Prescriptions: Cefdinir [Omnicef 250 MG/5 ML Susp] 250 mg PO BID 7 Days bottle Instructions: Sinusitis, Adult, [id number], Sinus Headache, [id number] Forms: ED Department Discharge Additional Instructions: Followup with primary care provider May use the clinic Monday - Monday for Nonemergencies May return to the Emergency Department for Emergencies Drink plenty of fluids Over the counter medications for sinuses, also nasal spray like Flonase Cefdinir 250/5ml, take 5ml twice a day for 7 days #suff qty, no refill: Sent to pharmacy Sepsis Event Note (ED) - Focused Exam Vital Signs: Vital Signs Temp Pulse Resp BP Pulse Ox 01/18/20 02:53 98.7 F 100 20 102/71 99 - Assessment/Plan Plan: PLEASE SEE RN NOTE FOR PFSH.
[2020-01-18 02:54] VITALS: BP 102/71; PULSE 100
== END 2020-01-18 03:10 | disposition home or self-care (01) ==
LOC: CC.ED 02:08
DX: J01.10 Acute frontal sinusitis, unspecified (principal); F41.9 Anxiety disorder, unspecified; F32.9 Major depressive disorder, single episode, unspecified; Z87.440 Personal history of urinary (tract) infections; Z88.1 Allergy status to other antibiotic agents; Z88.2 Allergy status to sulfonamides; Z79.899 Other long term (current) drug therapy
CPT/HCPCS: 81001; 81025; 99284

== ENCOUNTER 2020-01-18 13:58 | Emergency (ER) | payer MEDICARE, MEDICAID ==
[2020-01-18 14:01] VITALS: BP 114/80; PULSE 98
--- NOTE | 2020-01-18 14:12 | EDM.PDOC ---
ED HPI GENERAL MEDICAL PROBLEM - General Chief Complaint: Lower Extremity Injury/Pain Stated Complaint: fall Time Seen by Provider: 01/18/20 14:00 Source of Information: Reports: Patient History Limitations: Reports: No Limitations - History of Present Illness INITIAL COMMENTS - FREE TEXT/NARRATIVE: This patient is a 34 year old female that I just saw in the ER about 2am this morning for a completely different complaint. Today, patient reports that she tripped on her porch and landed on her left leg that has a boot due to recent surgery in December. Patient reports pain to the tib/fib distal and left top of foot. She arrives with mother at door, screaming very loud in pain. Mother informed by RN no visitors, RN informed me once patient mother left door, patient stopped crying. Patient reports that she has some pain to the leg and foot. Denies hitting head, loc, n, v, vision changes, or other complaints. Onset: Today Onset Date: 01/18/20 Onset Time: 13:45 Severity: Mild Improves with: Reports: Immobilization Worsens with: Reports: Movement Associated Symptoms: Denies: Confusion, Chest Pain, Cough, cough w sputum, Diaphoresis, Fever/Chills, Headaches, Loss of Appetite, Malaise, Nausea/Vomiting , Rash, Seizure, Shortness of Breath, Syncope, Weakness Left Leg Pain Score (Numeric/FACES): 10 - Related Data Allergies Allergy/AdvReac Type Severity Reaction Status Date / Time amoxicillin Allergy Diarrhea Verified 01/18/20 14:03 azithromycin [From Zithromax] Allergy Nausea and Verified 01/18/20 14:03 Vomiting sulfamethoxazole Allergy Hives Verified 01/18/20 14:03 [From Bactrim] trimethoprim [From Bactrim] Allergy Hives Verified 01/18/20 14:03 Home Meds: Home Meds Sertraline HCl [Zoloft] 5 mg PO DAILY PRN 08/16/16 [History] hydrOXYzine HCl [Hydroxyzine HCl] 5 ml PO DAILY PRN 02/08/18 [History] Rizatriptan Benzoate [Rizatriptan] 5 mg PO ASDIRECTED PRN 05/17/18 [History] Cefdinir [Omnicef 250 MG/5 ML Susp] 250 mg PO BID 7 Days bottle 01/18/20 [Rx] Past Medical History HEENT History: Reports: Other (See Below) Other HEENT History: TMJ Genitourinary History: Reports: UTI, Recurrent Neurological History: Reports: Headaches, Chronic Psychiatric History: Reports: Anxiety, Depression - Past Surgical History HEENT Surgical History: Reports: Other (See Below) Musculoskeletal Surgical History: Reports: Other (See Below) Other Musculoskeletal Surgeries/Procedures:: bunion removal, hardware for an arch Social & Family History - Family History Family Medical History: Noncontributory - Tobacco Use Smoking Status *Q: Never Smoker - Caffeine Use Caffeine Use: Reports: None - Recreational Drug Use Recreational Drug Use: No - Living Situation & Occupation Living situation: Reports: Single, with Family Occupation: Unemployed Review of Systems - Review of Systems Review Of Systems: See Below Constitutional: Reports: No Symptoms Eyes: Reports: No Symptoms Ears: Reports: No Symptoms Nose: Reports: Congestion Mouth/Throat: Reports: No Symptoms Respiratory: Reports: No Symptoms Cardiovascular: Reports: No Symptoms GI/Abdominal: Reports: No Symptoms Genitourinary: Reports: No Symptoms Musculoskeletal: Reports: Leg Pain (LLE distal tib/fib), Foot Pain (left top). Denies: Joint Pain, Joint Swelling Skin: Reports: No Symptoms Neurological: Reports: No Symptoms Psychiatric: Reports: No Symptoms ED EXAM, GENERAL - Physical Exam Exam: See Below Exam Limited By: No Limitations General Appearance: Alert, WD/WN, No Apparent Distress, Thin, Other (Not crying during exam) Head: Atraumatic, Normocephalic Neck: Normal Inspection, Supple, Non-Tender, Full Range of Motion Respiratory/Chest: No Respiratory Distress, Lungs Clear, Normal Breath Sounds, No Accessory Muscle Use Cardiovascular: Normal Peripheral Pulses, Regular Rate, Rhythm, No Edema, No Gallop, No JVD, No Murmur, No Rub Peripheral Pulses: 2+: Popliteal (L), Popliteal (R), Posterior Tibial (L), Posterior Tibial (R), Dorsalis Pedis (L), Dorsalis Pedis (R) Extremities: Normal Range of Motion, No Pedal Edema, Normal Capillary Refill, Other (LLE mild tenderness anterior isnclair distal, left top of foot at 4th/5th metatarsal mild. No swelling, no redness, no heat, no drainage. ROM intact. Neurovascular intact. Sensory/motor intact. Pulses +2, cap refill < [address]. ) Neurological: Alert, Oriented Psychiatric: Normal Affect, Normal Mood Skin Exam: Warm, Dry, Intact, Normal Color, No Rash Course - Vital Signs Last Recorded V/S: Last Vital Signs Temp 96.2 F L 01/18/20 13:59 Pulse 98 01/18/20 13:59 Resp 18 01/18/20 13:59 BP 114/80 01/18/20 13:59 Pulse Ox 100 01/18/20 13:59 - Orders/Labs/Meds Orders: Active Orders 24 hr Category Date Time Status Foot 2V Lt [CR] Routine Exams 01/18/20 Ordered Tibia Fibula Lt [CR] Routine Exams 01/18/20 Ordered - Radiology Interpretation Free Text/Narrative:: Left tib/fib/foot;: No fractures, no dislocations, no FBs. Hardware intact. Departure - Departure Time of Disposition: 14:18 Disposition: Home, Self-Care 01 Condition: Good Clinical Impression: Leg sprain Foot sprain Qualifiers: Encounter type: initial encounter Laterality: left Qualified Code(s): S93.602A - Unspecified sprain of left foot, initial encounter - Discharge Information *PRESCRIPTION DRUG MONITORING PROGRAM REVIEWED*: Not Applicable *COPY OF PRESCRIPTION DRUG MONITORING REPORT IN PATIENT DAYO: Not Applicable Instructions: Muscle Strain, [id number] Forms: ED Department Discharge Additional Instructions: Followup with surgeon as needed Followup with primary care provider if no improvement in pain in 2 weeks Rest Ice Elevate Continue using your boot Tylenol or Motrin for pain Sepsis Event Note (ED) - Evaluation Sepsis Screening Result: No Definite Risk - Focused Exam Vital Signs: Vital Signs Temp Pulse Resp BP Pulse Ox 01/18/20 13:59 96.2 F L 98 18 114/80 100 - My Orders Last 24 Hours: My Active Orders 01/18/20 Foot 2V Lt [CR] Routine Tibia Fibula Lt [CR] Routine - Assessment/Plan Last 24 Hours: My Active Orders 01/18/20 Foot 2V Lt [CR] Routine Tibia Fibula Lt [CR] Routine Plan: PLEASE SEE RN NOTE FOR PFSH
== END 2020-01-18 14:38 | disposition home or self-care (01) ==
LOC: CC.ED 13:58
DX: S93.602A Unspecified sprain of left foot, initial encounter (principal); F41.9 Anxiety disorder, unspecified; F32.9 Major depressive disorder, single episode, unspecified; Z79.899 Other long term (current) drug therapy; Z88.1 Allergy status to other antibiotic agents; Z88.2 Allergy status to sulfonamides; W01.0XXA Fall on same level from slipping, tripping and stumbling without subsequent striking against object, initial encounter
CPT/HCPCS: 73590-LT; 73620-LT; 81001; 81025; 99283; 99284

== ENCOUNTER 2020-06-15 22:58 | Emergency (ER) | payer MEDICARE, MEDICAID ==
[2020-06-15 23:23] VITALS: BP 124/79; PULSE 70
--- NOTE | 2020-06-15 23:29 | EDM.PDOC ---
ED HPI GENERAL MEDICAL PROBLEM - General Chief Complaint: General Stated Complaint: "feel funny" Time Seen by Provider: 06/15/20 23:28 Source of Information: Reports: Patient History Limitations: Reports: No Limitations - History of Present Illness INITIAL COMMENTS - FREE TEXT/NARRATIVE: Millie is a 34 yo female who presents to the ED because she "feels funny" after taking her first dose of liquid lexapro. She was switched to Lexapro yesterday per her mental health provider. She reports she took 1 tsp of liquid lexapro about 1.5 hrs prior to arrival and "felt funny." She reports she was confused and "almost lethargic." Reports she didn't know where she was at. Upon my examination, she is alert and oriented and resting comfortably in chair. She is in no acute distress. Onset: Today Duration: Resolved Prior to Arrival Associated Symptoms: Reports: Confusion, Nausea/Vomiting (nausea, no vomiting), Weakness. Denies: Chest Pain, Cough, cough w sputum, Diaphoresis, Fever/Chills, Headaches, Loss of Appetite, Malaise, Rash, Seizure, Shortness of Breath, Syncope - Related Data Allergies Allergy/AdvReac Type Severity Reaction Status Date / Time amoxicillin Allergy Diarrhea Verified 06/15/20 23:17 azithromycin [From Zithromax] Allergy Nausea and Verified 06/15/20 23:17 Vomiting sulfamethoxazole Allergy Hives Verified 06/15/20 23:17 [From Bactrim] trimethoprim [From Bactrim] Allergy Hives Verified 06/15/20 23:17 Home Meds: Home Meds hydrOXYzine HCl [Hydroxyzine HCl] 5 ml PO DAILY PRN 02/08/18 [History] Rizatriptan Benzoate [Rizatriptan] 5 mg PO ASDIRECTED PRN 05/17/18 [History] Escitalopram Oxalate 5 mg PO DAILY 06/15/20 [History] Past Medical History HEENT History: Reports: Sinusitis, Other (See Below) Other HEENT History: TMJ Genitourinary History: Reports: UTI, Recurrent Neurological History: Reports: Headaches, Chronic Psychiatric History: Reports: Anxiety, Depression - Past Surgical History HEENT Surgical History: Reports: Other (See Below) Musculoskeletal Surgical History: Reports: Other (See Below) Other Musculoskeletal Surgeries/Procedures:: bunion removal, hardware for an arch Social & Family History - Family History Family Medical History: Noncontributory - Caffeine Use Caffeine Use: Reports: None - Living Situation & Occupation Living situation: Reports: Single, with Family Occupation: Unemployed ED ROS GENERAL - Review of Systems Review Of Systems: Comprehensive ROS is negative, except as noted in HPI. ED EXAM, GENERAL - Physical Exam Exam: See Below Exam Limited By: No Limitations General Appearance: Alert, WD/WN, No Apparent Distress Eye Exam: Bilateral Eye: EOMI, Normal Fundi, Normal Inspection, PERRL Throat/Mouth: Normal Lips, Normal Oropharynx, No Airway Compromise Head: Atraumatic, Normocephalic Neck: Normal Inspection, Supple, Non-Tender, Full Range of Motion Respiratory/Chest: No Respiratory Distress, Lungs Clear, Normal Breath Sounds, N o Accessory Muscle Use, Chest Non-Tender Cardiovascular: Normal Peripheral Pulses, Regular Rate, Rhythm, No Edema, No Gallop, No JVD, No Murmur, No Rub GI/Abdominal: Normal Bowel Sounds, Soft, Non-Tender, No Organomegaly, No Distention, No Abnormal Bruit, No Mass Neurological: Alert, Oriented, CN II-XII Intact, Normal Cognition, Normal Gait, Normal Reflexes, No Motor/Sensory Deficits Psychiatric: Normal Affect, Normal Mood Skin Exam: Warm, Dry, Intact, Normal Color, No Rash Course - Vital Signs Last Recorded V/S: Last Vital Signs Temp 96.7 F L 06/15/20 23:00 Pulse 70 06/15/20 23:00 Resp 16 06/15/20 23:00 BP 124/79 06/15/20 23:00 Pulse Ox 100 06/15/20 23:00 - Re-Assessments/Exams Free Text/Narrative Re-Assessment/Exam: Discussed with patient that this is not an emergent need and that she needs to follow up with her mental health provider to further discuss the use of this medication. Departure - Departure Time of Disposition: 23:41 Disposition: Home, Self-Care 01 Condition: Good Clinical Impression: Medication side effects, Anxiety with depression - Discharge Information *PRESCRIPTION DRUG MONITORING PROGRAM REVIEWED*: Not Applicable *COPY OF PRESCRIPTION DRUG MONITORING REPORT IN PATIENT DAYO: Not Applicable Instructions: Managing Anxiety, Adult Referrals: Ivon Gunn, RN, RADIOIS[employer] TECHNOLOGIST [Nurse Practitioner] - Forms: ED Department Discharge Additional Instructions: - Stop medication until able to discuss with B Long - Rest and push fluids - Follow up as needed - Return to ED for EMERGENT needs Sepsis Event Note (ED) - Evaluation Sepsis Screening Result: No Definite Risk - Focused Exam Vital Signs: Vital Signs Temp Pulse Resp BP Pulse Ox 06/15/20 23:00 96.7 F L 70 16 124/79 100 - Problem List & Annotations (1) Medication side effects SNOMED Code(s): 478667056 Code(s): T88.7XXA - UNSP ADVERSE EFFECT OF DRUG OR MEDICAMENT, INIT ENCNTR Status: Acute (2) Anxiety with depression SNOMED Code(s): 808385650 Code(s): F41.8 - OTHER SPECIFIED ANXIETY DISORDERS Status: Chronic - Problem List Review Problem List Initiated/Reviewed/Updated: Yes - Assessment/Plan Assessment:: Medication Side Effect Anxiety and Depression Plan: Her symptoms have resolved. Recommend she hold medication until able to further discuss with mental health PCP. Go home and rest. Return to ED for emergent needs.
== END 2020-06-15 23:55 | disposition home or self-care (01) ==
LOC: CC.ED 22:58
DX: F41.8 Other specified anxiety disorders (principal); T43.225A Adverse effect of selective serotonin reuptake inhibitors, initial encounter; Z79.899 Other long term (current) drug therapy; Z88.2 Allergy status to sulfonamides; Z88.0 Allergy status to penicillin; Z88.1 Allergy status to other antibiotic agents
CPT/HCPCS: 93010; 99283; 99284-25

== ENCOUNTER 2021-01-02 20:50 | Emergency (ER) | payer MEDICARE, MEDICAID, OTHER ==
[2021-01-02] MEDS ORDERED: Ondansetron 4 MG Tab.DIS PO ONE (21:07)
--- NOTE | 2021-01-02 21:13 | EDM.PDOC ---
ED HPI GENERAL MEDICAL PROBLEM - General Chief Complaint: Gastrointestinal Problem Stated Complaint: nausea Time Seen by Provider: 01/02/21 20:59 Source of Information: Reports: Patient History Limitations: Reports: No Limitations - History of Present Illness INITIAL COMMENTS - FREE TEXT/NARRATIVE: This patient is a 35 year old female that presents to the ER. Patient reports th at since Monday she has had nausea. Patient reports that on Monday she had vomiting with the nausea. She reports then getting IV fluids and being seen. She reports being on abx for sinus infection then. Patient reports the vomiting has resolved, but she continues with nausea. Patient reports dysuria for weeks as well. Patient denies headache, v, d, f, back pain. Does not appear distressed. Onset Date: 12/28/20 Duration: Day(s): (5) Severity: Mild Improves with: Reports: None Worsens with: Reports: None Associated Symptoms: Reports: Loss of Appetite, Nausea/Vomiting. Denies: Confusion, Chest Pain, Cough, cough w sputum, Diaphoresis, Fever/Chills, Headaches, Malaise, Rash, Seizure, Shortness of Breath, Syncope, Weakness - Related Data Allergies Allergy/AdvReac Type Severity Reaction Status Date / Time sulfamethoxazole Allergy Hives Verified 01/02/21 20:51 [From Bactrim] trimethoprim [From Bactrim] Allergy Hives Verified 01/02/21 20:51 amoxicillin AdvReac Diarrhea Verified 01/02/21 20:51 azithromycin [From Zithromax] AdvReac Nausea and Verified 01/02/21 20:51 Vomiting Home Meds: Home Meds hydrOXYzine HCl [Hydroxyzine HCl] 5 ml PO DAILY PRN 02/08/18 [History] Gabapentin [Neurontin] 250 mg PO Q6HR PRN 01/02/21 [History] Rimegepant Sulfate [Nurtec Odt] 75 mg SL ASDIRECTED PRN 01/02/21 [History] Sertraline HCl [Zoloft] 20 mg PO DAILY 01/02/21 [History] Past Medical History HEENT History: Reports: Sinusitis, Other (See Below) Other HEENT History: TMJ Genitourinary History: Reports: UTI, Recurrent Neurological History: Reports: Headaches, Chronic Psychiatric History: Reports: Anxiety, Depression - Past Surgical History HEENT Surgical History: Reports: Other (See Below) Musculoskeletal Surgical History: Reports: Other (See Below) Other Musculoskeletal Surgeries/Procedures:: bunion removal, hardware for an arch Social & Family History - Family History Family Medical History: No Pertinent Family History - Caffeine Use Caffeine Use: Reports: None - Living Situation & Occupation Living situation: Reports: Single, with Family Occupation: Unemployed ED ROS GENERAL - Review of Systems Review Of Systems: See Below Constitutional: Reports: No Symptoms HEENT: Reports: No Symptoms Respiratory: Reports: No Symptoms Cardiovascular: Reports: No Symptoms Endocrine: Reports: No Symptoms GI/Abdominal: Reports: Abdominal Pain, Nausea. Denies: Diarrhea, Vomiting : Reports: Dysuria. Denies: Frequency, Hematuria, Urgency, Urinary Retention Musculoskeletal: Reports: No Symptoms Skin: Reports: No Symptoms Neurological: Reports: No Symptoms Psychiatric: Reports: No Symptoms Hematologic/Lymphatic: Reports: No Symptoms Immunologic: Reports: No Symptoms ED EXAM, GI/ABD - Physical Exam Exam: See Below Exam Limited By: No Limitations General Appearance: Alert, WD/WN, No Apparent Distress Eyes: Bilateral: Normal Appearance Ears: Normal External Exam, Normal Canal, Hearing Grossly Normal, Normal TMs Nose: Normal Inspection, Normal Mucosa, No Blood Throat/Mouth: Normal Inspection, Normal Lips, Normal Teeth, Normal Gums, Normal Oropharynx, Normal Voice, No Airway Compromise Head: Atraumatic, Normocephalic Neck: Normal Inspection, Supple, Non-Tender, Full Range of Motion Respiratory/Chest: No Respiratory Distress, Lungs Clear, Normal Breath Sounds, No Accessory Muscle Use Cardiovascular: Normal Peripheral Pulses, Regular Rate, Rhythm, No Edema, No Gallop, No JVD, No Murmur, No Rub GI/Abdominal Exam: Normal Bowel Sounds, Soft, No Organomegaly, No Distention, No Abnormal Bruit, No Mass, Pelvis Stable, Tender (mildly diffuse). No: Guarding, Rigid, Rebound (Female) Exam: Deferred Rectal (Female) Exam: Deferred Back Exam: Normal Inspection, Full Range of Motion. No: CVA Tenderness (L), CVA Tenderness (R) Extremities: Normal Inspection, Normal Range of Motion, Non-Tender, No Pedal Edema, Normal Capillary Refill Neurological: Alert, Oriented, Normal Cognition, Normal Gait, No Motor/Sensory Deficits Psychiatric: Normal Affect, Normal Mood Skin Exam: Warm, Dry, Intact, Normal Color, No Rash Lymphatic: No Adenopathy Course - Orders/Labs/Meds Orders: Active Orders 24 hr Category Date Time Status CULTURE URINE [RM] Stat Lab 01/02/21 21:24 Received Labs: Laboratory Tests 01/02/21 01/02/21 01/02/21 Range/Units 21:20 21:20 21:24 WBC 5.7 (5.0-10.0) 10^3/uL RBC 4.82 (4.00-5.50) 10^6/uL Hgb 14.1 (12.0-16.0) g/dL Hct 41.0 (37.0-47.0) % MCV 85.1 (82.0-94.0) fL MCH 29.3 (27.0-32.0) pg MCHC 34.4 (33.0-38.0) g/dL RDW Coeff of [place] 12.5 (11.0-15.0) % Plt Count 202 (150-400) 10^3/uL Neut % (Auto) 78.0 (35-85) % Lymph % (Auto) 15.1 (10-55) % [place] % (Auto) 6.5 (0-16) % Eos % (Auto) 0.2 (0-5) % Baso % (Auto) 0.2 (0-3) % Neut # (Auto) 4.45 (1.80-7.00) 10^3/uL Lymph # (Auto) 0.86 L (1.00-4.80) 10^3/uL [place] # (Auto) 0.37 (0.00-0.80) 10^3/uL Eos # (Auto) 0.01 (0.00-0.45) 10^3/uL Baso # (Auto) 0.01 10^3/uL Sodium 141 (136-145) mEq/L Potassium 4.1 (3.5-5.0) mEq/L Chloride 102 (98-106) mEq/L Carbon Dioxide 26 (21-32) mmol/L BUN 12 (7-18) mg/dL Creatinine 0.7 (0.6-1.0) mg/dL Est Cr Clr Drug Dosing TNP Estimated GFR (MDRD) > 60 (>=60) mL/min Glucose 99 (75-99) mg/dL Calcium 8.8 (8.4-10.1) mg/dL Total Bilirubin 0.4 (0.0-1.0) mg/dL AST 11 L (15-37) U/L ALT 16 (12-78) U/L Alkaline Phosphatase 76 (46-116) U/L Total Protein 7.6 (6.4-8.2) g/dL Albumin 4.0 (3.4-5.0) g/dL Amylase 65 (25-115) U/L Lipase 128 (73-393) U/L Urine Color [place] (YELLOW) Urine Appearance Slightly cloudy (CLEAR) Urine pH 6.0 (4.5-8.0) Ur Specific [place] 1.020 (1.003-1.020) Urine Protein 30 H (NEGATIVE) mg/dL Urine Glucose (UA) Negative (NEGATIVE) mg/dL Urine Ketones Trace H (NEGATIVE) mg/dL Urine Occult Blood Large H (NEGATIVE) Urine Nitrite Negative (NEGATIVE) Urine Bilirubin Negative (NEGATIVE) Urine Urobilinogen 0.2 (0.2-1.0) EU/dL Ur Leukocyte Esterase Trace H (NEGATIVE) Urine RBC >100 H (0-5) /HPF Urine WBC 0-5 (0-5) /HPF Ur Epithelial Cells Moderate H (NOT SEEN) /HPF Urine Bacteria Few H (NOT SEEN) /HPF Urine HCG, Qual 01/02/21 Range/Units 21:24 WBC (5.0-10.0) 10^3/uL RBC (4.00-5.50) 10^6/uL Hgb (12.0-16.0) g/dL Hct (37.0-47.0) % MCV (82.0-94.0) fL MCH (27.0-32.0) pg MCHC (33.0-38.0) g/dL RDW Coeff of [place] (11.0-15.0) % Plt Count (150-400) 10^3/uL Neut % (Auto) (35-85) % Lymph % (Auto) (10-55) % [place] % (Auto) (0-16) % Eos % (Auto) (0-5) % Baso % (Auto) (0-3) % Neut # (Auto) (1.80-7.00) 10^3/uL Lymph # (Auto) (1.00-4.80) 10^3/uL [place] # (Auto) (0.00-0.80) 10^3/uL Eos # (Auto) (0.00-0.45) 10^3/uL Baso # (Auto) 10^3/uL Sodium (136-145) mEq/L Potassium (3.5-5.0) mEq/L Chloride (98-106) mEq/L Carbon Dioxide (21-32) mmol/L BUN (7-18) mg/dL Creatinine (0.6-1.0) mg/dL Est Cr Clr Drug Dosing Estimated GFR (MDRD) (>=60) mL/min Glucose (75-99) mg/dL Calcium (8.4-10.1) mg/dL Total Bilirubin (0.0-1.0) mg/dL AST (15-37) U/L ALT (12-78) U/L Alkaline Phosphatase (46-116) U/L Total Protein (6.4-8.2) g/dL Albumin (3.4-5.0) g/dL Amylase (25-115) U/L Lipase (73-393) U/L Urine Color (YELLOW) Urine Appearance (CLEAR) Urine pH (4.5-8.0) Ur Specific [place] (1.003-1.020) Urine Protein (NEGATIVE) mg/dL Urine Glucose (UA) (NEGATIVE) mg/dL Urine Ketones (NEGATIVE) mg/dL Urine Occult Blood (NEGATIVE) Urine Nitrite (NEGATIVE) Urine Bilirubin (NEGATIVE) Urine Urobilinogen (0.2-1.0) EU/dL Ur Leukocyte Esterase (NEGATIVE) Urine RBC (0-5) /HPF Urine WBC (0-5) /HPF Ur Epithelial Cells (NOT SEEN) /HPF Urine Bacteria (NOT SEEN) /HPF Urine HCG, Qual Negative Meds: Medications Discontinued Medications Generic Name Dose Route Start Last Admin Trade Name Freq PRN Reason Stop Dose Admin Ondansetron HCl 4 mg 01/02/21 21:07 01/02/21 21:23 Ondansetron 4 Mg Tab.Dis PO 01/02/21 21:08 4 mg ONETIME ONE Administration - Re-Assessments/Exams Free Text/Narrative Re-Assessment/Exam: 01/02/21 21:54 Labs reviewed, unremarkable. Patient on menstrual cycle. Will discharge. No vomiting in ER. Departure - Departure Time of Disposition: 21:53 Disposition: Home, Self-Care 01 Condition: Good Clinical Impression: Nausea - Discharge Information *PRESCRIPTION DRUG MONITORING PROGRAM REVIEWED*: Not Applicable *COPY OF PRESCRIPTION DRUG MONITORING REPORT IN PATIENT DAYO: Not Applicable Instructions: Nausea, Adult Referrals: Lily Riddle PA [Primary Care Provider] - Forms: ED Department Discharge Additional Instructions: Followup with your primary care provider Return to the ER for emergencies - My Orders Last 24 Hours: My Active Orders 01/02/21 21:24 CULTURE URINE [RM] Stat - Assessment/Plan Last 24 Hours: My Active Orders 01/02/21 21:24 CULTURE URINE [RM] Stat Plan: PLEASE SEE RN NOTE FOR PFSH
[2021-01-02 21:37] LABS: CHLORIDE,CL 102 mEq/L (98-106); SODIUM,NA 141 mEq/L (136-145)
[2021-01-03 04:52] VITALS: BP 110/79; PULSE 83
== END 2021-01-02 22:00 | disposition home or self-care (01) ==
LOC: CC.ED 20:50
DX: R11.0 Nausea (principal); Z88.2 Allergy status to sulfonamides; Z88.1 Allergy status to other antibiotic agents; Z88.0 Allergy status to penicillin; Z79.899 Other long term (current) drug therapy
CPT/HCPCS: 36415; 80053; 81001; 81025; 82150; 83690; 85025; 87086; 99283; A9270

== ENCOUNTER 2021-01-22 00:42 | Emergency (ER) | payer MEDICARE, OTHER ==
[2021-01-22 00:50] VITALS: BP 101/79; PULSE 91
[2021-01-22 01:15] LABS: CHLORIDE,CL 104 mEq/L (98-106); SODIUM,NA 144 mEq/L (136-145)
--- NOTE | 2021-01-22 01:35 | EDM.PDOC ---
ED HPI GENERAL MEDICAL PROBLEM - General Chief Complaint: General Stated Complaint: nausea,weak Time Seen by Provider: 01/22/21 01:10 Source of Information: Reports: Patient, Family (Mom), RN History Limitations: Reports: No Limitations - History of Present Illness INITIAL COMMENTS - FREE TEXT/NARRATIVE: Has been nauseated and upset stomach for several days. She took her zofran earlier today and doesn't feel that it is helping. She is not vomiting and does not have diarrhea. she is currently drinking on power aid. She is complaining of ear pain. She had MRI recently in [place] and was told that both her ears are fine and she continues to complain of frequent earaches. She is currently on omnicef for sinus infection having taken the first 4 doses. Onset: Gradual Location: Reports: Abdomen Treatments TANNERY GUMMER: Reports: Other (see below) Other Treatments TANNERY GUMMER: zofran for nausea; has not taken anything for headache Headache Pain Score (Numeric/FACES): 10 - Related Data Allergies Allergy/AdvReac Type Severity Reaction Status Date / Time sulfamethoxazole Allergy Hives Verified 01/22/21 00:50 [From Bactrim] trimethoprim [From Bactrim] Allergy Hives Verified 01/22/21 00:50 amoxicillin AdvReac Diarrhea Verified 01/22/21 00:50 azithromycin [From Zithromax] AdvReac Nausea and Verified 01/22/21 00:50 Vomiting Home Meds: Home Meds hydrOXYzine HCl [Hydroxyzine HCl] 5 ml PO DAILY PRN 02/08/18 [History] Gabapentin [Neurontin] 250 mg PO Q6HR PRN 01/02/21 [History] Rimegepant Sulfate [Nurtec Odt] 75 mg SL ASDIRECTED PRN 01/02/21 [History] Sertraline HCl [Zoloft] 20 mg PO DAILY 01/02/21 [History] Ondansetron [Zofran ODT] 4 mg PO Q6H PRN 01/22/21 [History] Past Medical History HEENT History: Reports: Sinusitis, Other (See Below) Other HEENT History: TMJ Genitourinary History: Reports: UTI, Recurrent Neurological History: Reports: Headaches, Chronic, Migraines Psychiatric History: Reports: Anxiety, Depression - Past Surgical History HEENT Surgical History: Reports: Other (See Below) Musculoskeletal Surgical History: Reports: Other (See Below) Other Musculoskeletal Surgeries/Procedures:: bunion removal, hardware for an arch Social & Family History - Family History Family Medical History: No Pertinent Family History - Caffeine Use Caffeine Use: Reports: None - Living Situation & Occupation Living situation: Reports: Single, with Family Occupation: Unemployed ED ROS GENERAL - Review of Systems Review Of Systems: See Below Constitutional: Reports: Weakness, Decreased Appetite. Denies: Fever, Chills HEENT: Reports: Ear Pain, Sinus Problem. Denies: Ear Discharge, Throat Pain Respiratory: Denies: Shortness of Breath, Cough Cardiovascular: Reports: No Symptoms GI/Abdominal: Reports: Constipation, Nausea. Denies: Diarrhea, Vomiting Skin: Reports: No Symptoms ED EXAM, GENERAL - Physical Exam Exam: See Below Exam Limited By: No Limitations General Appearance: Alert, WD/WN, Mild Distress Ears: Normal External Exam, Normal Canal, Normal TMs Nose: Normal Inspection Throat/Mouth: Normal Inspection, Normal Oropharynx Head: Atraumatic, Normocephalic Neck: Normal Inspection, Supple, Non-Tender, Full Range of Motion Respiratory/Chest: No Respiratory Distress, Lungs Clear, Normal Breath Sounds Cardiovascular: Regular Rate, Rhythm, No Edema GI/Abdominal: Normal Bowel Sounds, Soft, Non-Tender Neurological: Alert, Oriented Skin Exam: Warm, Dry, Intact Course - Vital Signs Last Recorded V/S: Last Vital Signs Temp 98.7 F 01/22/21 00:43 Pulse 91 01/22/21 00:43 Resp 16 01/22/21 00:43 BP 101/79 01/22/21 00:43 Pulse Ox 96 01/22/21 00:43 - Orders/Labs/Meds Labs: Laboratory Tests 01/22/21 01/22/21 01/22/21 Range/Units 00:57 01:05 01:05 WBC 6.2 (4.0-11.0) 10^3/uL RBC 4.60 (4.00-5.50) x10^6/uL Hgb 13.2 (12.0-16.0) g/dL Hct 40.3 (37.0-47.0) % MCV 87.6 (83.0-97.0) fL MCH 28.7 (27.0-32.0) pg MCHC 32.8 (32.0-36.0) g/dL RDW Coeff of [place] 12.8 (11.0-15.0) % Plt Count 189 (150-400) 10^3/uL Immature Gran % (Auto) 0.2 (0.0-4.9) % Neut % (Auto) 51.0 (41-71) % Lymph % (Auto) 35.1 (24-44) % [place] % (Auto) 8.4 (0-10) % Eos % (Auto) 4.7 (0-6) % Baso % (Auto) 0.6 (0-1) % Neut # (Auto) 3.14 (1.80-8.00) x10^3/uL Lymph # (Auto) 2.16 (0.60-5.00) 10^3/uL [place] # (Auto) 0.52 (0.00-1.50) 10^3/uL Eos # (Auto) 0.29 (0.00-1.50) 10^3/uL Baso # (Auto) 0.04 (0.00-0.50) 10^3/uL Immature Gran # (Auto) 0.01 (0.00-0.49) 10^3/uL Sodium 144 (136-145) mEq/L Potassium 3.0 L D (3.5-5.0) mEq/L Chloride 104 (98-106) mEq/L Carbon Dioxide 30 (21-32) mmol/L BUN 14 (7-18) mg/dL Creatinine 1.0 (0.6-1.0) mg/dL Est Cr Clr Drug Dosing 47.79 mL/min Estimated GFR (MDRD) > 60 (>=60) mL/min Glucose 108 H (75-99) mg/dL Calcium 8.1 L (8.4-10.1) mg/dL Urine Color Yellow (YELLOW) Urine Appearance Clear (CLEAR) Urine pH 7.0 (4.5-8.0) Ur Specific [place] 1.025 H (1.003-1.020) Urine Protein Negative (NEGATIVE) mg/dL Urine Glucose (UA) Negative (NEGATIVE) mg/dL Urine Ketones Negative (NEGATIVE) mg/dL Urine Occult Blood Large H (NEGATIVE) Urine Nitrite Negative (NEGATIVE) Urine Bilirubin Negative (NEGATIVE) Urine Urobilinogen 1.0 (0.2-1.0) EU/dL Ur Leukocyte Esterase Negative (NEGATIVE) Urine RBC 5-10 H (0-5) /HPF Urine WBC Not seen (0-5) /HPF Ur Epithelial Cells Few H (NOT SEEN) /HPF Departure - Departure Time of Disposition: 01:35 Disposition: Home, Self-Care 01 Condition: Good Clinical Impression: Hypokalemia, Nausea - Discharge Information *PRESCRIPTION DRUG MONITORING PROGRAM REVIEWED*: Not Applicable *COPY OF PRESCRIPTION DRUG MONITORING REPORT IN PATIENT DAYO: Not Applicable Referrals: PCP,None [Primary Care Provider] - Forms: ED Department Discharge Additional Instructions: start lansoprazole tonight when you get home repeat your zofran when you get home stop the omnicef start potassium twice a day for monday, monday, monday and have your potassium drawn Monday morning. push fluids as much as possible Sepsis Event Note (ED) - Evaluation Sepsis Screening Result: No Definite Risk - Focused Exam Vital Signs: Vital Signs Temp Pulse Resp BP Pulse Ox 01/22/21 00:43 98.7 F 91 16 101/79 96 - Problem List & Annotations (1) Nausea SNOMED Code(s): 017660136 Code(s): R11.0 - NAUSEA Status: Acute Priority: High (2) Hypokalemia SNOMED Code(s): 07439021 Code(s): E87.6 - HYPOKALEMIA Status: Acute Priority: High - Problem List Review Problem List Initiated/Reviewed/Updated: Yes
== END 2021-01-22 01:45 | disposition home or self-care (01) ==
LOC: CC.ED 00:42
DX: R11.0 Nausea (principal); E87.6 Hypokalemia; Z88.1 Allergy status to other antibiotic agents; Z88.0 Allergy status to penicillin
CPT/HCPCS: 36415; 80048; 81001; 85025; 99284

== ENCOUNTER 2021-02-23 02:13 | Emergency (ER) | payer MEDICARE, SELFPAY ==
[2021-02-23 02:16] VITALS: BP 116/72; PULSE 75
--- NOTE | 2021-02-23 02:26 | EDM.PDOC ---
ED HPI GENERAL MEDICAL PROBLEM - General Chief Complaint: General Stated Complaint: "dont feel good" Time Seen by Provider: 02/23/21 02:19 Source of Information: Reports: Patient History Limitations: Reports: No Limitations - History of Present Illness INITIAL COMMENTS - FREE TEXT/NARRATIVE: States that she hasn't felt good all day. She has only ate crackers. She has taken her zofran without improvement. She states that she has been drinking. She states that she feels hot and cold. Has midepigastric discomfort. No diarrhea. She feels that it started 2 days ago when she took her sertraline on an empty stomach. No fever with it. Onset: Gradual Location: Reports: Abdomen Associated Symptoms: Reports: Loss of Appetite. Denies: Nausea/Vomiting - Related Data Allergies Allergy/AdvReac Type Severity Reaction Status Date / Time sulfamethoxazole Allergy Hives Verified 01/22/21 00:50 [From Bactrim] trimethoprim [From Bactrim] Allergy Hives Verified 01/22/21 00:50 amoxicillin AdvReac Diarrhea Verified 01/22/21 00:50 azithromycin [From Zithromax] AdvReac Nausea and Verified 01/22/21 00:50 Vomiting Home Meds: Home Meds hydrOXYzine HCl [Hydroxyzine HCl] 5 ml PO DAILY PRN 02/08/18 [History] Gabapentin [Neurontin] 250 mg PO Q6HR PRN 01/02/21 [History] Rimegepant Sulfate [Nurtec Odt] 75 mg SL ASDIRECTED PRN 01/02/21 [History] Sertraline HCl [Zoloft] 20 mg PO DAILY 01/02/21 [History] Ondansetron [Zofran ODT] 4 mg PO Q6H PRN 01/22/21 [History] Past Medical History HEENT History: Reports: Sinusitis, Other (See Below) Other HEENT History: TMJ Genitourinary History: Reports: UTI, Recurrent Neurological History: Reports: Headaches, Chronic, Migraines Psychiatric History: Reports: Anxiety, Depression - Past Surgical History HEENT Surgical History: Reports: Other (See Below) Musculoskeletal Surgical History: Reports: Other (See Below) Other Musculoskeletal Surgeries/Procedures:: bunion removal, hardware for an arch Social & Family History - Family History Family Medical History: No Pertinent Family History - Caffeine Use Caffeine Use: Reports: None - Living Situation & Occupation Living situation: Reports: Single, with Family Occupation: Unemployed ED ROS GENERAL - Review of Systems Review Of Systems: See Below Constitutional: Denies: Fever GI/Abdominal: Reports: Abdominal Pain. Denies: Constipation, Diarrhea : Denies: Dysuria Neurological: Reports: No Symptoms ED EXAM, GENERAL - Physical Exam Exam: See Below Exam Limited By: No Limitations General Appearance: Alert, WD/WN, Mild Distress Respiratory/Chest: No Respiratory Distress, Lungs Clear Cardiovascular: Regular Rate, Rhythm GI/Abdominal: Normal Bowel Sounds, Soft, Tender (midepigastric area.) Extremities: Normal Inspection Neurological: Alert, Oriented Psychiatric: Tearful Skin Exam: Warm, Dry, Intact Course - Vital Signs Last Recorded V/S: Last Vital Signs Temp 98.1 F 02/23/21 02:14 Pulse 75 02/23/21 02:14 Resp 16 02/23/21 02:14 BP 116/72 02/23/21 02:14 Pulse Ox 100 02/23/21 02:14 - Orders/Labs/Meds Labs: Laboratory Tests 02/23/21 02/23/21 02/23/21 Range/Units 02:15 02:15 02:15 WBC 4.3 (4.0-11.0) 10^3/uL RBC 4.64 (4.00-5.50) x10^6/uL Hgb 13.4 (12.0-16.0) g/dL Hct 40.8 (37.0-47.0) % MCV 87.9 (83.0-97.0) fL MCH 28.9 (27.0-32.0) pg MCHC 32.8 (32.0-36.0) g/dL RDW Coeff of [place] 12.6 (11.0-15.0) % Plt Count 195 (150-400) 10^3/uL Immature Gran % (Auto) 0.0 (0.0-4.9) % Neut % (Auto) 53.7 (41-71) % Lymph % (Auto) 27.7 (24-44) % [place] % (Auto) 10.0 (0-10) % Eos % (Auto) 7.7 H (0-6) % Baso % (Auto) 0.9 (0-1) % Neut # (Auto) 2.30 (1.80-8.00) x10^3/uL Lymph # (Auto) 1.19 (0.60-5.00) 10^3/uL [place] # (Auto) 0.43 (0.00-1.50) 10^3/uL Eos # (Auto) 0.33 (0.00-1.50) 10^3/uL Baso # (Auto) 0.04 (0.00-0.50) 10^3/uL Immature Gran # (Auto) 0.00 (0.00-0.49) 10^3/uL Sodium 143 (136-145) mEq/L Potassium 3.8 (3.5-5.0) mEq/L Chloride 106 (98-106) mEq/L Carbon Dioxide 28 (21-32) mmol/L BUN 12 (7-18) mg/dL Creatinine 0.8 (0.6-1.0) mg/dL Est Cr Clr Drug Dosing 56.23 mL/min Estimated GFR (MDRD) > 60 (>=60) mL/min Glucose 112 H (75-99) mg/dL Calcium 8.9 (8.4-10.1) mg/dL Urine Color Yellow (YELLOW) Urine Appearance Clear (CLEAR) Urine pH 6.0 (4.5-8.0) Ur Specific [place] 1.020 (1.003-1.020) Urine Protein Negative (NEGATIVE) mg/dL Urine Glucose (UA) Negative (NEGATIVE) mg/dL Urine Ketones Negative (NEGATIVE) mg/dL Urine Occult Blood Negative (NEGATIVE) Urine Nitrite Negative (NEGATIVE) Urine Bilirubin Negative (NEGATIVE) Urine Urobilinogen 0.2 (0.2-1.0) EU/dL Ur Leukocyte Esterase Negative (NEGATIVE) Urine RBC 0-5 (0-5) /HPF Urine WBC 0-5 (0-5) /HPF Ur Squamous Epith Cells Moderate H (NOT SEEN) /HPF Urine Bacteria Few H (NOT SEEN) /HPF - Re-Assessments/Exams Free Text/Narrative Re-Assessment/Exam: 02/23/21 03:00 In to discuss her normal labs and urine. She is not dehydrated. She admits that she is not taking her sertraline on a regular basis again. She voices that she feels so much better when she does and then she stops it. Encouraged her to take it daily and not stop it. I suspect that this is all coming from her anxiety that is out of control again. She admits that she does feel more anxious recently. She states that she has been taking her lansoprazole daily and hasn't stopped that at all. Encouraged her to see Ivon Gunn again in follow up if needed. Departure - Departure Time of Disposition: 03:04 Disposition: Home, Self-Care 01 Condition: Good Clinical Impression: Anxiety - Discharge Information *PRESCRIPTION DRUG MONITORING PROGRAM REVIEWED*: Not Applicable *COPY OF PRESCRIPTION DRUG MONITORING REPORT IN PATIENT DAYO: Not Applicable Instructions: Managing Anxiety, Adult Referrals: Eder Delacruz PA-C [Primary Care Provider] - Forms: ED Department Discharge Additional Instructions: You need to get back on your sertraline daily and not stop it The abdominal pain is caused from your anxiety. Continue on the the lansoprazole every day. You are not dehydrated and your labs are all normal at this time Sepsis Event Note (ED) - Evaluation Sepsis Screening Result: No Definite Risk - Focused Exam Vital Signs: Vital Signs Temp Pulse Resp BP Pulse Ox 02/23/21 02:14 98.1 F 75 16 116/72 100 - Problem List & Annotations (1) Anxiety SNOMED Code(s): 02601529 Code(s): F41.9 - ANXIETY DISORDER, UNSPECIFIED Status: Acute Priority: High Current Visit: Yes - Problem List Review Problem List Initiated/Reviewed/Updated: Yes
[2021-02-23 02:35] LABS: CHLORIDE,CL 106 mEq/L (98-106); SODIUM,NA 143 mEq/L (136-145)
== END 2021-02-23 03:15 | disposition home or self-care (01) ==
LOC: CC.ED 02:13
DX: F41.9 Anxiety disorder, unspecified (principal); Z88.0 Allergy status to penicillin; Z88.1 Allergy status to other antibiotic agents
CPT/HCPCS: 36415; 80048; 81001; 85025; 99283; 99284

== ENCOUNTER 2021-04-11 00:55 | Emergency (ER) | payer MEDICARE, MEDICAID, SELFPAY ==
[2021-04-11 01:02] VITALS: BP 110/83; PULSE 95
[2021-04-11 01:32] LABS: CHLORIDE,CL 105 mEq/L (98-106); SODIUM,NA 143 mEq/L (136-145)
--- NOTE | 2021-04-11 01:36 | EDM.PDOC ---
ED HPI GENERAL MEDICAL PROBLEM - General Chief Complaint: General Stated Complaint: "I don't feel good" nausea Time Seen by Provider: 04/11/21 01:15 Source of Information: Reports: Patient, Family History Limitations: Reports: No Limitations - History of Present Illness INITIAL COMMENTS - FREE TEXT/NARRATIVE: Millie is a 35 year old female who presents to ER with complaints of not feeling well. States has been nauseated for the last 24 hours. Has postnasal drainage. No ear pain, sore throat or sinus congestion. No headache. No cough. No fevers. Has mild abdominal pain. Feels like her reflux "could be bad". No vomiting. No diarrhea. Did take a Zofran right before she came here. Onset: Gradual Duration: Hour(s):, Getting Worse Location: Reports: Generalized Quality: Reports: Ache Severity: Mild Improves with: Reports: None Associated Symptoms: Reports: Malaise, Nausea/Vomiting. Denies: Confusion, Chest Pain, Cough, Fever/Chills, Headaches, Loss of Appetite, Shortness of Breath Treatments SENIOR COUNSEL: Reports: Other Medication(s) (zofran) - Related Data Allergies Allergy/AdvReac Type Severity Reaction Status Date / Time sulfamethoxazole Allergy Hives Verified 04/11/21 00:56 [From Bactrim] trimethoprim [From Bactrim] Allergy Hives Verified 04/11/21 00:56 amoxicillin AdvReac Diarrhea Verified 04/11/21 00:56 azithromycin [From Zithromax] AdvReac Nausea and Verified 04/11/21 00:56 Vomiting Home Meds: Home Meds hydrOXYzine HCl [Hydroxyzine HCl] 5 ml PO DAILY PRN 02/08/18 [History] Gabapentin [Neurontin] 250 mg PO Q6HR PRN 01/02/21 [History] Rimegepant Sulfate [Nurtec Odt] 75 mg SL ASDIRECTED PRN 01/02/21 [History] Ondansetron [Zofran ODT] 4 mg PO Q6H PRN 01/22/21 [History] FLUoxetine [PROzac] 5 ml PO DAILY 04/11/21 [History] Past Medical History HEENT History: Reports: Sinusitis, Other (See Below) Other HEENT History: TMJ Genitourinary History: Reports: UTI, Recurrent Neurological History: Reports: Headaches, Chronic, Migraines Psychiatric History: Reports: Anxiety, Depression - Past Surgical History HEENT Surgical History: Reports: Other (See Below) Other HEENT Surgeries/Procedures: WISDOM TEETH REMOVAL Musculoskeletal Surgical History: Reports: Other (See Below) Other Musculoskeletal Surgeries/Procedures:: bunion removal, hardware for an arch Social & Family History - Family History Family Medical History: No Pertinent Family History - Tobacco Use Tobacco Use Status *Q: Unknown Ever Used Tobacco - Caffeine Use Caffeine Use: Reports: Coffee - Living Situation & Occupation Living situation: Reports: Single, with Family Occupation: Unemployed ED ROS GENERAL - Review of Systems Review Of Systems: See Below Constitutional: Reports: Fever, Chills, Malaise, Weakness, Fatigue. Denies: D ecreased Appetite HEENT: Denies: Ear Pain, Sinus Problem, Throat Pain Respiratory: Denies: Shortness of Breath, Cough Cardiovascular: Denies: Chest Pain, Edema, Lightheadedness Endocrine: Reports: Fatigue GI/Abdominal: Reports: Abdominal Pain, Nausea. Denies: Constipation, Diarrhea, Vomiting : Reports: Frequency Musculoskeletal: Reports: No Symptoms Skin: Reports: No Symptoms Neurological: Reports: No Symptoms ED EXAM, GENERAL - Physical Exam Exam: See Below Exam Limited By: No Limitations General Appearance: Alert, WD/WN, No Apparent Distress Ears: Normal External Exam, Normal TMs Nose: Normal Inspection, Normal Mucosa, No Blood Throat/Mouth: Normal Inspection, Normal Oropharynx Head: Normocephalic Neck: Normal Inspection, Supple, Non-Tender Respiratory/Chest: No Respiratory Distress, Lungs Clear, Normal Breath Sounds Cardiovascular: Regular Rate, Rhythm GI/Abdominal: Normal Bowel Sounds, Soft, Tender (mildly tender throughout) Extremities: Normal Inspection, No Pedal Edema Neurological: Alert, Oriented Skin Exam: Warm, Dry Course - Vital Signs Last Recorded V/S: Last Vital Signs Temp 97.8 F 04/11/21 01:10 Pulse 95 04/11/21 01:10 Resp 18 04/11/21 01:10 BP 110/83 04/11/21 01:10 Pulse Ox 100 04/11/21 01:10 - Orders/Labs/Meds Orders: Active Orders 24 hr Category Date Time Status Abdomen 2V AP Flat Upright [CR] Stat Exams 04/11/21 01:37 Ordered Labs: Laboratory Tests 09/05/21 09/05/21 09/05/21 Range/Units 01:05 01:10 01:10 WBC 11.3 H (4.0-11.0) 10^3/uL RBC 4.65 (4.00-5.50) x10^6/uL Hgb 13.4 (12.0-16.0) g/dL Hct 40.4 (37.0-47.0) % MCV 86.9 (83.0-97.0) fL MCH 28.8 (27.0-32.0) pg MCHC 33.2 (32.0-36.0) g/dL RDW Coeff of [place] 12.4 (11.0-15.0) % Plt Count 192 (150-400) 10^3/uL Immature Gran % (Auto) 0.1 (0.0-4.9) % Neut % (Auto) 71.4 H (41-71) % Lymph % (Auto) 13.3 L (24-44) % [place] % (Auto) 6.4 (0-10) % Eos % (Auto) 8.1 H (0-6) % Baso % (Auto) 0.7 (0-1) % Neut # (Auto) 8.06 H (1.80-8.00) x10^3/uL Lymph # (Auto) 1.50 (0.60-5.00) 10^3/uL [place] # (Auto) 0.72 (0.00-1.50) 10^3/uL Eos # (Auto) 0.92 (0.00-1.50) 10^3/uL Baso # (Auto) 0.08 (0.00-0.50) 10^3/uL Immature Gran # (Auto) 0.01 (0.00-0.49) 10^3/uL Sodium 143 (136-145) mEq/L Potassium 4.3 (3.5-5.0) mEq/L Chloride 105 (98-106) mEq/L Carbon Dioxide 26 (21-32) mmol/L BUN 11 (7-18) mg/dL Creatinine 0.8 (0.6-1.0) mg/dL Est Cr Clr Drug Dosing 58.33 mL/min Estimated GFR (MDRD) > 60 (>=60) mL/min Glucose 123 H (75-99) mg/dL Calcium 8.9 (8.4-10.1) mg/dL Total Bilirubin 0.4 (0.0-1.0) mg/dL AST 19 (15-37) U/L ALT 15 (12-78) U/L Alkaline Phosphatase 82 (46-116) U/L C-Reactive Protein < 0.2 L (0.2-0.8) mg/dL Total Protein 7.6 (6.4-8.2) g/dL Albumin 4.2 (3.4-5.0) g/dL Urine Color Yellow (YELLOW) Urine Appearance Clear (CLEAR) Urine pH 8.5 H (4.5-8.0) Ur Specific [place] 1.020 (1.003-1.020) Urine Protein Negative (NEGATIVE) mg/dL Urine Glucose (UA) Negative (NEGATIVE) mg/dL Urine Ketones Negative (NEGATIVE) mg/dL Urine Occult Blood Negative (NEGATIVE) Urine Nitrite Negative (NEGATIVE) Urine Bilirubin Negative (NEGATIVE) Urine Urobilinogen 0.2 (0.2-1.0) EU/dL Ur Leukocyte Esterase Negative (NEGATIVE) Urine RBC 0-5 (0-5) /HPF Urine WBC 0-5 (0-5) /HPF Ur Squamous Epith Cells Few H (NOT SEEN) /HPF Urine Bacteria Occasional H (NOT SEEN) /HPF - Re-Assessments/Exams Free Text/Narrative Re-Assessment/Exam: 04/11/21 02:05 labs are unremarkable. Xray shows large amount of stool, no obstruction. Departure - Departure Time of Disposition: 02:05 Disposition: Home, Self-Care 01 Condition: Good Clinical Impression: Nausea, Constipation - Discharge Information *PRESCRIPTION DRUG MONITORING PROGRAM REVIEWED*: No *COPY OF PRESCRIPTION DRUG MONITORING REPORT IN PATIENT DAYO: No Instructions: Nausea, Adult, Constipation, Adult, [id number] Forms: ED Department Discharge Additional Instructions: 1. Push fluids 2. Miralax daily or can use dulcolax tonight and tomorrow 3. Tylenol as needed for headache 4. Zofran as needed for nausea 5. Call with any questions or concerns. Sepsis Event Note (ED) - Evaluation Sepsis Screening Result: No Definite Risk - Focused Exam Vital Signs: Vital Signs Temp Pulse Resp BP Pulse Ox 04/11/21 01:10 97.8 F 95 18 110/83 100 04/11/21 00:58 97.8 F 95 18 110/83 100 - My Orders Last 24 Hours: My Active Orders 04/11/21 01:37 Abdomen 2V AP Flat Upright [CR] Stat - Assessment/Plan Last 24 Hours: My Active Orders 04/11/21 01:37 Abdomen 2V AP Flat Upright [CR] Stat
== END 2021-04-11 02:22 | disposition home or self-care (01) ==
LOC: CC.ED 00:55
DX: K59.00 Constipation, unspecified (principal); R11.0 Nausea; Z88.1 Allergy status to other antibiotic agents; Z88.0 Allergy status to penicillin
CPT/HCPCS: 36415; 74019; 80053; 81001; 85025; 86140; 99283; 99284-25

== ENCOUNTER 2021-07-20 22:35 | Emergency (ER) | payer MEDICARE ==
[2021-07-20 22:47] VITALS: BP 110/84; PULSE 109
[2021-07-20] MEDS ORDERED: Ondansetron 4 MG Tab.DIS PO ONE (23:15)
--- NOTE | 2021-07-20 23:23 | EDM.PDOC ---
ED HPI GENERAL MEDICAL PROBLEM - General Chief Complaint: General Stated Complaint: hot and cold Time Seen by Provider: 07/20/21 23:00 Source of Information: Reports: Patient History Limitations: Reports: No Limitations - History of Present Illness INITIAL COMMENTS - FREE TEXT/NARRATIVE: Millie is a 36 year old female who presents with complaints of nausea, body aches and chills. Has had symptoms for 2 days. No fevers. Ongoing nausea but has not tried the zofran ODT that she has at home. Not taking the gabapentin she also has for headaches due to nausea. No vomiting. No diarrhea. Does admit to abdominal cramping. Admits to mild sinus congestion. No sore throat. Has been able to only take small amounts of fluids today. Reports has not eaten. Mother also noted to have similar symptoms. Onset: Gradual Duration: Day(s):, Constant Location: Reports: Head, Abdomen Quality: Reports: Ache Severity: Moderate Improves with: Reports: None Associated Symptoms: Reports: Fever/Chills, Headaches, Loss of Appetite, Malaise, Nausea/Vomiting. Denies: Confusion, Chest Pain, Cough, Shortness of Breath Treatments RESEARCH AND DEVELOPMENT DIRECTOR: Reports: Acetaminophen Bilateral Middle Pain Score (Numeric/FACES): 9 - Related Data Allergies Allergy/AdvReac Type Severity Reaction Status Date / Time sulfamethoxazole Allergy Hives Verified 07/20/21 22:47 [From Bactrim] trimethoprim [From Bactrim] Allergy Hives Verified 07/20/21 22:47 amoxicillin AdvReac Diarrhea Verified 07/20/21 22:47 azithromycin [From Zithromax] AdvReac Nausea and Verified 07/20/21 22:47 Vomiting Home Meds: Home Meds hydrOXYzine HCl [Hydroxyzine HCl] 5 ml PO DAILY PRN 02/08/18 [History] Gabapentin [Neurontin] 250 mg PO Q6HR PRN 01/02/21 [History] Rimegepant Sulfate [Nurtec Odt] 75 mg SL ASDIRECTED PRN 01/02/21 [History] Ondansetron [Zofran ODT] 4 mg PO Q6H PRN 01/22/21 [History] FLUoxetine [PROzac] 5 ml PO DAILY 04/11/21 [History] Past Medical History HEENT History: Reports: Sinusitis, Other (See Below) Other HEENT History: TMJ Genitourinary History: Reports: UTI, Recurrent Neurological History: Reports: Headaches, Chronic, Migraines Psychiatric History: Reports: Anxiety, Depression - Infectious Disease History Infectious Disease History: Reports: None - Past Surgical History HEENT Surgical History: Reports: Other (See Below) Other HEENT Surgeries/Procedures: WISDOM TEETH REMOVAL Musculoskeletal Surgical History: Reports: Other (See Below) Other Musculoskeletal Surgeries/Procedures:: bunion removal, hardware for an arch Social & Family History - Family History Family Medical History: No Pertinent Family History - Tobacco Use Tobacco Use Status *Q: Never Tobacco User - Caffeine Use Caffeine Use: Reports: Coffee - Living Situation & Occupation Living situation: Reports: Single, with Family Occupation: Unemployed ED ROS GENERAL - Review of Systems Review Of Systems: See Below Constitutional: Reports: Chills, Malaise, Weakness, Fatigue. Denies: Fever, Decreased Appetite HEENT: Reports: Rhinitis. Denies: Ear Pain, Throat Pain Respiratory: Denies: Shortness of Breath, Cough Cardiovascular: Denies: Chest Pain, Edema, Lightheadedness Endocrine: Reports: Fatigue GI/Abdominal: Reports: Abdominal Pain, Nausea. Denies: Constipation, Diarrhea, Vomiting : Reports: No Symptoms Musculoskeletal: Reports: No Symptoms Skin: Reports: No Symptoms Neurological: Reports: No Symptoms Psychiatric: Reports: No Symptoms ED EXAM, GENERAL - Physical Exam Exam: See Below Exam Limited By: No Limitations General Appearance: Alert, WD/WN, Mild Distress Ears: Normal External Exam, Normal TMs Nose: Normal Inspection, Normal Mucosa, No Blood Throat/Mouth: Normal Inspection, Normal Oropharynx Head: Normocephalic Neck: Normal Inspection, Supple, Non-Tender Respiratory/Chest: No Respiratory Distress, Lungs Clear, Normal Breath Sounds Cardiovascular: Regular Rate, Rhythm GI/Abdominal: Normal Bowel Sounds, Soft, Tender (diffusely throughout) Extremities: Normal Inspection, No Pedal Edema Neurological: Alert, Oriented Skin Exam: Warm, Dry Course - Vital Signs Last Recorded V/S: Last Vital Signs Temp 98.3 F 07/20/21 22:44 Pulse 109 H 07/20/21 22:44 Resp 16 07/20/21 22:44 BP 110/84 07/20/21 22:44 Pulse Ox 98 07/20/21 22:44 - Orders/Labs/Meds Orders: Active Orders 24 hr Category Date Time Status Lactated Ringers [Ringers, Lactated] 1,000 ml Med 07/20/21 23:31 Ordered IV .BOLUS Ondansetron [Zofran] Med 07/20/21 23:31 Ordered 4 mg IVPUSH Q6H PRN Medication Orders Lactated Ringer's (Ringers, Lactated) 1,000 mls @ 999 mls/hr IV .BOLUS ONE Stop: 07/21/21 00:31 Ondansetron HCl (Ondansetron 4 Mg/2 Ml Sdv) 4 mg IVPUSH Q6H PRN PRN Reason: Nausea Labs: Laboratory Tests 07/20/21 07/20/21 07/20/21 Range/Units 23:00 23:00 23:00 WBC 9.6 (4.0-11.0) 10^3/uL RBC 4.95 (4.00-5.50) x10^6/uL Hgb 14.5 (12.0-16.0) g/dL Hct 42.6 (37.0-47.0) % MCV 86.1 (83.0-97.0) fL MCH 29.3 (27.0-32.0) pg MCHC 34.0 (32.0-36.0) g/dL RDW Coeff of [place] 12.5 (11.0-15.0) % Plt Count 224 (150-400) 10^3/uL Immature Gran % (Auto) 0.1 (0.0-4.9) % Neut % (Auto) 66.0 (41-71) % Lymph % (Auto) 22.2 L (24-44) % [place] % (Auto) 6.5 (0-10) % Eos % (Auto) 4.7 (0-6) % Baso % (Auto) 0.5 (0-1) % Neut # (Auto) 6.35 (1.80-8.00) x10^3/uL Lymph # (Auto) 2.13 (0.60-5.00) 10^3/uL [place] # (Auto) 0.62 (0.00-1.50) 10^3/uL Eos # (Auto) 0.45 (0.00-1.50) 10^3/uL Baso # (Auto) 0.05 (0.00-0.50) 10^3/uL Immature Gran # (Auto) 0.01 (0.00-0.49) 10^3/uL Sodium 143 (136-145) mEq/L Potassium 3.3 L D (3.5-5.0) mEq/L Chloride 106 (98-106) mEq/L Carbon Dioxide 23 (21-32) mmol/L BUN 11 (7-18) mg/dL Creatinine 0.8 (0.6-1.0) mg/dL Est Cr Clr Drug Dosing 62.65 mL/min Estimated GFR (MDRD) > 60 (>=60) mL/min Glucose 105 H (75-99) mg/dL Calcium 9.2 (8.4-10.1) mg/dL Total Bilirubin 1.1 H (0.0-1.0) mg/dL AST 18 (15-37) U/L ALT 15 (12-78) U/L Alkaline Phosphatase 94 (46-116) U/L C-Reactive Protein < 0.2 L (0.2-0.8) mg/dL Total Protein 8.2 (6.4-8.2) g/dL Albumin 4.5 (3.4-5.0) g/dL Urine Color (YELLOW) Urine Appearance (CLEAR) Urine pH (4.5-8.0) Ur Specific [place] (1.003-1.020) Urine Protein (NEGATIVE) mg/dL Urine Glucose (UA) (NEGATIVE) mg/dL Urine Ketones (NEGATIVE) mg/dL Urine Occult Blood (NEGATIVE) Urine Nitrite (NEGATIVE) Urine Bilirubin (NEGATIVE) Urine Urobilinogen (0.2-1.0) EU/dL Ur Leukocyte Esterase (NEGATIVE) SARS CoV-2 RNA Rapid YOGI Negative (NEGATIVE) 07/20/21 Range/Units 23:06 WBC (4.0-11.0) 10^3/uL RBC (4.00-5.50) x10^6/uL Hgb (12.0-16.0) g/dL Hct (37.0-47.0) % MCV (83.0-97.0) fL MCH (27.0-32.0) pg MCHC (32.0-36.0) g/dL RDW Coeff of [place] (11.0-15.0) % Plt Count (150-400) 10^3/uL Immature Gran % (Auto) (0.0-4.9) % Neut % (Auto) (41-71) % Lymph % (Auto) (24-44) % [place] % (Auto) (0-10) % Eos % (Auto) (0-6) % Baso % (Auto) (0-1) % Neut # (Auto) (1.80-8.00) x10^3/uL Lymph # (Auto) (0.60-5.00) 10^3/uL [place] # (Auto) (0.00-1.50) 10^3/uL Eos # (Auto) (0.00-1.50) 10^3/uL Baso # (Auto) (0.00-0.50) 10^3/uL Immature Gran # (Auto) (0.00-0.49) 10^3/uL Sodium (136-145) mEq/L Potassium (3.5-5.0) mEq/L Chloride (98-106) mEq/L Carbon Dioxide (21-32) mmol/L BUN (7-18) mg/dL Creatinine (0.6-1.0) mg/dL Est Cr Clr Drug Dosing mL/min Estimated GFR (MDRD) (>=60) mL/min Glucose (75-99) mg/dL Calcium (8.4-10.1) mg/dL Total Bilirubin (0.0-1.0) mg/dL AST (15-37) U/L ALT (12-78) U/L Alkaline Phosphatase (46-116) U/L C-Reactive Protein (0.2-0.8) mg/dL Total Protein (6.4-8.2) g/dL Albumin (3.4-5.0) g/dL Urine Color Dark yellow (YELLOW) Urine Appearance Slightly cloudy (CLEAR) Urine pH 5.5 (4.5-8.0) Ur Specific [place] 1.025 H (1.003-1.020) Urine Protein Negative (NEGATIVE) mg/dL Urine Glucose (UA) Negative (NEGATIVE) mg/dL Urine Ketones >=160 H (NEGATIVE) mg/dL Urine Occult Blood Negative (NEGATIVE) Urine Nitrite Negative (NEGATIVE) Urine Bilirubin Negative (NEGATIVE) Urine Urobilinogen 0.2 (0.2-1.0) EU/dL Ur Leukocyte Esterase Negative (NEGATIVE) SARS CoV-2 RNA Rapid YOGI (NEGATIVE) Meds: Medications Generic Name Dose Route Start Last Admin Trade Name Andrew PRN Reason Stop Dose Admin Lactated Ringer's 1,000 mls @ 999 mls/hr 07/20/21 23:31 Ringers, Lactated IV 07/21/21 00:31 .BOLUS ONE Ondansetron HCl 4 mg 07/20/21 23:31 Ondansetron 4 Mg/2 Ml Sdv IVPUSH Q6H PRN Nausea Discontinued Medications Generic Name Dose Route Start Last Admin Trade Name Freq PRN Reason Stop Dose Admin Ondansetron HCl 4 mg 07/20/21 23:15 07/20/21 23:18 Ondansetron 4 Mg Tab.Dis PO 07/20/21 23:16 4 mg ONETIME ONE Administration - Re-Assessments/Exams Free Text/Narrative Re-Assessment/Exam: 07/20/21 23:37 Labs essentially unremarkable. Specific gravity 1.025. Did take Zofran in ER. Will give liter of fluids. Can take her usual Zofran as at home. Departure - Departure Time of Disposition: 23:38 Disposition: Home, Self-Care 01 Condition: Good Clinical Impression: Gastroenteritis - Discharge Information *PRESCRIPTION DRUG MONITORING PROGRAM REVIEWED*: No *COPY OF PRESCRIPTION DRUG MONITORING REPORT IN PATIENT DAYO: No Forms: ED Department Discharge Additional Instructions: 1. Push fluids 2. [place] diet 3. Tylenol or ibuprofen for headache, fever, discomfort 4. Zofran as at home for nausea every 6 hours as needed 5. Follow up if persisting concerns. Sepsis Event Note (ED) - Evaluation Sepsis Screening Result: No Definite Risk - Focused Exam Vital Signs: Vital Signs Temp Pulse Resp BP Pulse Ox 07/20/21 22:44 98.3 F 109 H 16 110/84 98 - My Orders Last 24 Hours: My Active Orders 07/20/21 23:31 Lactated Ringers [Ringers, Lactated] 1,000 ml IV .BOLUS Ondansetron [Zofran] 4 mg IVPUSH Q6H PRN - Assessment/Plan Last 24 Hours: My Active Orders 07/20/21 23:31 Lactated Ringers [Ringers, Lactated] 1,000 ml IV .BOLUS Ondansetron [Zofran] 4 mg IVPUSH Q6H PRN
[2021-07-20] MEDS ORDERED: Ondansetron 4 MG/2 ML SDV IVPUSH PRN (23:31)
[2021-07-20] MEDS ORDERED: Lactated Ringers 1,000 ML IV ONE (23:31)
[2021-07-20 23:34] LABS: CHLORIDE,CL 106 mEq/L (98-106); SODIUM,NA 143 mEq/L (136-145)
== END 2021-07-21 01:00 | disposition home or self-care (01) ==
LOC: CC.ED 22:35
DX: K52.9 Noninfective gastroenteritis and colitis, unspecified (principal); Z88.2 Allergy status to sulfonamides; Z88.0 Allergy status to penicillin; Z88.1 Allergy status to other antibiotic agents; Z79.899 Other long term (current) drug therapy; Z20.822 Contact with and (suspected) exposure to COVID-19
CPT/HCPCS: 36415; 80053; 81003; 85025; 86140; 99284; A9270-GY; J7120; U0002

== ENCOUNTER 2021-07-22 21:59 | Emergency (ER) | payer MEDICARE ==
[2021-07-22 22:26] VITALS: BP 115/77; PULSE 76
--- NOTE | 2021-07-22 22:51 | EDM.PDOC ---
ED HPI GENERAL MEDICAL PROBLEM - General Chief Complaint: General Stated Complaint: I'm dehydrated Time Seen by Provider: 07/22/21 22:40 Source of Information: Reports: Patient History Limitations: Reports: No Limitations - History of Present Illness INITIAL COMMENTS - FREE TEXT/NARRATIVE: Pt presents to the ER for not feeling well. She initially was seen in the ER Monday with viral illness and was given IV fluids, was seen in the clinic monday and was given fluids. Returned to the ER early AM because she was still having URI symptoms but left without being seen as she didn't want to wait as ER was busy. Was seen by myself in the clinic this AM and discussed that she is not dehydrated. She had stopped taking all of her meds because she didn't feel good and her anxiety is out of control. She was told to take her lantoprazole which she did this AM and then took her hydroxizine and was able to sleep. She took a second dose about 7 pm. She states she doesn't know why she waited to take the second dose. She has not been taking her prozac since she has been sick but she can't tell me why she thought that was a good idea. She admits that her anxiety is not as bad as it was earlier today when she was in the clinic. She has not taken any zofran as she doesn't feel nauseated. She states that she just wants to get over this. She admits that she is better overall than this AM. Onset: Gradual Location: Reports: Abdomen Generalized Pain Score (Numeric/FACES): 10 - Related Data Allergies Allergy/AdvReac Type Severity Reaction Status Date / Time sulfamethoxazole Allergy Hives Verified 07/22/21 22:27 [From Bactrim] trimethoprim [From Bactrim] Allergy Hives Verified 07/22/21 22:27 amoxicillin AdvReac Diarrhea Verified 07/22/21 22:27 azithromycin [From Zithromax] AdvReac Nausea and Verified 07/22/21 22:27 Vomiting Home Meds: Home Meds hydrOXYzine HCl [Hydroxyzine HCl] 5 ml PO DAILY PRN 02/08/18 [History] Gabapentin [Neurontin] 250 mg PO Q6HR PRN 01/02/21 [History] Rimegepant Sulfate [Nurtec Odt] 75 mg SL ASDIRECTED PRN 01/02/21 [History] Ondansetron [Zofran ODT] 4 mg PO Q6H PRN 01/22/21 [History] FLUoxetine [PROzac] 5 ml PO DAILY 04/11/21 [History] Past Medical History HEENT History: Reports: Sinusitis, Other (See Below) Other HEENT History: TMJ Genitourinary History: Reports: UTI, Recurrent Neurological History: Reports: Headaches, Chronic, Migraines Psychiatric History: Reports: Anxiety, Depression - Infectious Disease History Infectious Disease History: Reports: None - Past Surgical History HEENT Surgical History: Reports: Other (See Below) Other HEENT Surgeries/Procedures: WISDOM TEETH REMOVAL Musculoskeletal Surgical History: Reports: Other (See Below) Other Musculoskeletal Surgeries/Procedures:: bunion removal, hardware for an arch Social & Family History - Family History Family Medical History: No Pertinent Family History - Tobacco Use Tobacco Use Status *Q: Never Tobacco User Second Hand Smoke Exposure: No - Caffeine Use Caffeine Use: Reports: Coffee - Living Situation & Occupation Living situation: Reports: Single, with Family Occupation: Unemployed ED ROS GENERAL - Review of Systems Review Of Systems: See Below Constitutional: Reports: Fatigue. Denies: Fever, Chills HEENT: Reports: No Symptoms Respiratory: Reports: No Symptoms Cardiovascular: Reports: No Symptoms GI/Abdominal: Reports: Abdominal Pain, Nausea. Denies: Diarrhea, Vomiting : Reports: No Symptoms Musculoskeletal: Reports: No Symptoms Skin: Reports: No Symptoms Psychiatric: Reports: Anxiety ED EXAM, GENERAL - Physical Exam Exam: See Below Exam Limited By: No Limitations General Appearance: Alert, WD/WN, Anxious. No: Moderate Distress, Severe Distress Ears: Normal External Exam, Normal TMs Throat/Mouth: Normal Inspection, Normal Oropharynx Head: Atraumatic, Normocephalic Neck: Normal Inspection, Supple, Non-Tender Respiratory/Chest: No Respiratory Distress, Lungs Clear, Normal Breath Sounds Cardiovascular: Regular Rate, Rhythm GI/Abdominal: Normal Bowel Sounds, Soft Extremities: Normal Inspection, Normal Capillary Refill Neurological: Alert, Oriented Psychiatric: Anxious Skin Exam: Warm, Dry Course - Vital Signs Last Recorded V/S: Last Vital Signs Temp 99.3 F 07/22/21 22:20 Pulse 76 07/22/21 22:20 Resp 12 07/22/21 22:20 BP 115/77 07/22/21 22:20 Pulse Ox 100 07/22/21 22:20 - Orders/Labs/Meds Labs: Laboratory Tests 07/22/21 Range/Units 21:58 Urine Color Light yellow (YELLOW) Urine Appearance Clear (CLEAR) Urine pH 6.5 (4.5-8.0) Ur Specific [place] 1.015 (1.003-1.020) Urine Protein Negative (NEGATIVE) mg/dL Urine Glucose (UA) Negative (NEGATIVE) mg/dL Urine Ketones 40 H (NEGATIVE) mg/dL Urine Occult Blood Negative (NEGATIVE) Urine Nitrite Negative (NEGATIVE) Urine Bilirubin Negative (NEGATIVE) Urine Urobilinogen 0.2 (0.2-1.0) EU/dL Ur Leukocyte Esterase Negative (NEGATIVE) Departure - Departure Time of Disposition: 22:49 Disposition: Home, Self-Care 01 Condition: Good Clinical Impression: Anxiety - Discharge Information *PRESCRIPTION DRUG MONITORING PROGRAM REVIEWED*: Not Applicable *COPY OF PRESCRIPTION DRUG MONITORING REPORT IN PATIENT DAYO: Not Applicable Referrals: PCP,None [Primary Care Provider] - Forms: ED Department Discharge Additional Instructions: Take your meds at home as ordered. Take hydroxizine every 6 hours as ordered take you lantoprazole everyday take your prozac as you are ordered take zofran for nausea Sepsis Event Note (ED) - Evaluation Sepsis Screening Result: No Definite Risk - Focused Exam Vital Signs: Vital Signs Temp Pulse Resp BP Pulse Ox 07/22/21 22:20 99.3 F 76 12 115/77 100 - Problem List & Annotations (1) Anxiety SNOMED Code(s): 56174943 Code(s): F41.9 - ANXIETY DISORDER, UNSPECIFIED Status: Acute Priority: High Current Visit: Yes (2) Nausea SNOMED Code(s): 815878342 Code(s): R11.0 - NAUSEA Status: Acute Priority: High Current Visit: No - Problem List Review Problem List Initiated/Reviewed/Updated: Yes
== END 2021-07-22 23:03 | disposition home or self-care (01) ==
LOC: CC.ED 21:59
DX: F41.9 Anxiety disorder, unspecified (principal); Z88.0 Allergy status to penicillin; Z88.1 Allergy status to other antibiotic agents
CPT/HCPCS: 81003; 99283

== ENCOUNTER 2021-10-01 00:10 | Emergency (ER) | payer MEDICAID, MEDICARE ==
[2021-10-01 00:18] VITALS: BP 122/77; PULSE 78
[2021-10-01] MEDS ORDERED: Ondansetron 4 MG Tab.DIS PO ONE (00:47)
[2021-10-01] MEDS ORDERED: Sodium Chloride 0.9% 1,000 ML IV ONE (01:02)
[2021-10-01 01:05] LABS: CHLORIDE,CL 104 mEq/L (98-106); SODIUM,NA 143 mEq/L (136-145)
== END 2021-10-01 02:25 | disposition home or self-care (01) ==
LOC: CC.ED 00:10 → SUPCPDRO 00:10 → CC.ED 02:25
DX: E86.0 Dehydration (principal); U09.9 Post COVID-19 condition, unspecified; Z86.16 Personal history of COVID-19; Z88.0 Allergy status to penicillin; Z88.1 Allergy status to other antibiotic agents; Z79.899 Other long term (current) drug therapy
CPT/HCPCS: 36415; 80053; 81003; 85025; 99283; 99284; A9270-GY; J7030

== ENCOUNTER 2021-12-08 02:24 | Emergency (ER) | payer MEDICARE ==
[2021-12-08 02:39] VITALS: BP 101/74; PULSE 70
== END 2021-12-08 04:19 | disposition home or self-care (01) ==
LOC: CC.ED 02:24
DX: F41.9 Anxiety disorder, unspecified (principal); G47.00 Insomnia, unspecified; Z88.1 Allergy status to other antibiotic agents
CPT/HCPCS: 99283; 99284

== ENCOUNTER 2022-04-21 02:57 | Emergency (ER) | payer MEDICAID, MEDICARE ==
[2022-04-21 03:05] VITALS: BP 125/91; PULSE 84
[2022-04-21] MEDS ORDERED: Ketorolac 30 MG/ML SDV IM ONE (03:24)
== END 2022-04-21 03:52 | disposition home or self-care (01) ==
LOC: CC.ED 02:57
DX: H65.192 Other acute nonsuppurative otitis media, left ear (principal); Z88.2 Allergy status to sulfonamides; Z88.1 Allergy status to other antibiotic agents; Z79.899 Other long term (current) drug therapy
CPT/HCPCS: 96372; 99282; 99283; J1885

== ENCOUNTER 2022-05-03 04:43 | Emergency (ER) | payer MEDICAID, MEDICARE ==
[2022-05-03 05:08] VITALS: BP 128/78; PULSE 98
[2022-05-03] MEDS: Promethazine 25 MG/ML SDV IM ONE (05:49)
== END 2022-05-03 06:05 | disposition home or self-care (01) ==
LOC: CC.ED 04:43
DX: K29.70 Gastritis, unspecified, without bleeding (principal); K21.9 Gastro-esophageal reflux disease without esophagitis; Z88.0 Allergy status to penicillin; Z88.2 Allergy status to sulfonamides; Z88.1 Allergy status to other antibiotic agents; Z79.899 Other long term (current) drug therapy
CPT/HCPCS: 96372; 99283; 99284; J2550

== ENCOUNTER 2022-05-31 18:47 | Emergency (ER) | payer MEDICARE ==
[2022-05-31 19:06] VITALS: BP 124/74; PULSE 65
[2022-05-31] MEDS ORDERED: Ondansetron 4 MG/2 ML SDV IVPUSH PRN (19:22)
[2022-05-31] MEDS ORDERED: Sodium Chloride 0.9% 1,000 ML IV SCH (19:30)
[2022-05-31] MEDS ORDERED: Ketorolac 30 MG/ML SDV IVPUSH ONE (19:30)
[2022-05-31] MEDS ORDERED: Pantoprazole 40 MG Vial IVPUSH SCH (19:30)
[2022-05-31] MEDS ORDERED: LORazepam 2 MG/ML Syringe SUBCUT ONE (20:26)
[2022-05-31] MEDS ORDERED: LORazepam 2 MG/ML Syringe IVPUSH ONE (20:28)
[2022-05-31] MEDS ORDERED: Promethazine 12.5 MG in Sodium Chloride 0.9% 100 ML IV ONE (23:29)
== END 2022-06-01 01:20 | disposition home or self-care (01) ==
LOC: CC.ED 18:47
DX: J03.90 Acute tonsillitis, unspecified (principal); Z88.2 Allergy status to sulfonamides; Z88.0 Allergy status to penicillin; Z88.1 Allergy status to other antibiotic agents; Z79.899 Other long term (current) drug therapy
CPT/HCPCS: 36415; 80048; 85025; 96361; 96374; 96375; 99283-25; 99284; C9113; J1885; J2060; J2405; J2550; J7030

== ENCOUNTER 2022-07-05 04:33 | Emergency (ER) | payer MEDICARE ==
[2022-07-05 04:41] VITALS: BP 101/71; PULSE 102
[2022-07-05] MEDS: Ondansetron 4 MG/2 ML SDV IVPUSH ONE (05:07)
[2022-07-05] MEDS: Ketorolac 30 MG/ML SDV IVPUSH ONE (05:08)
[2022-07-05] MEDS: Lactated Ringers 1,000 ML IV ONE (05:10)
[2022-07-05] MEDS: Metoclopramide 10 MG/2 ML SDV IVPUSH ONE (06:48)
== END 2022-07-05 06:58 | disposition home or self-care (01) ==
LOC: CC.ED 04:33
DX: R10.30 Lower abdominal pain, unspecified (principal); R35.0 Frequency of micturition; R39.15 Urgency of urination; K21.9 Gastro-esophageal reflux disease without esophagitis; Z88.2 Allergy status to sulfonamides; Z88.1 Allergy status to other antibiotic agents; Z79.899 Other long term (current) drug therapy
CPT/HCPCS: 36415; 80053; 81001; 85025; 87086; 96361; 96374; 96375; 99284-25; J1885; J2405; J2765; J7120

== ENCOUNTER 2022-07-06 01:44 | Emergency (ER) | payer MEDICARE ==
[2022-07-06 01:56] VITALS: BP 108/79; PULSE 99
== END 2022-07-06 02:58 | disposition home or self-care (01) ==
LOC: CC.ED 01:44
DX: F41.1 Generalized anxiety disorder (principal); K21.9 Gastro-esophageal reflux disease without esophagitis; Z79.899 Other long term (current) drug therapy
CPT/HCPCS: 99283

== ENCOUNTER 2022-07-13 20:35 | Emergency (ER) | payer MEDICARE ==
[2022-07-13 23:36] VITALS: BP 125/82; PULSE 100
== END 2022-07-13 20:55 | disposition home or self-care (01) ==
LOC: CC.ED 20:35
DX: R13.10 Dysphagia, unspecified (principal); K21.9 Gastro-esophageal reflux disease without esophagitis; Z88.1 Allergy status to other antibiotic agents; Z90.09 Acquired absence of other part of head and neck
CPT/HCPCS: 99283; 99284

== ENCOUNTER 2022-07-14 20:15 | Emergency (ER) | payer MEDICARE ==
[2022-07-14 20:55] VITALS: BP 118/78; PULSE 85
== END 2022-07-14 21:07 | disposition home or self-care (01) ==
LOC: CC.ED 20:15
DX: G89.18 Other acute postprocedural pain (principal); K21.9 Gastro-esophageal reflux disease without esophagitis; Z88.1 Allergy status to other antibiotic agents; Z79.899 Other long term (current) drug therapy
CPT/HCPCS: 99283

== ENCOUNTER 2022-07-15 06:25 | Emergency (ER) | payer MEDICARE ==
[2022-07-15 06:34] VITALS: BP 107/82; PULSE 98
== END 2022-07-15 07:49 | disposition home or self-care (01) ==
LOC: CC.ED 06:25
DX: G89.18 Other acute postprocedural pain (principal); R59.1 Generalized enlarged lymph nodes; K21.9 Gastro-esophageal reflux disease without esophagitis; Z88.1 Allergy status to other antibiotic agents; Z79.899 Other long term (current) drug therapy
CPT/HCPCS: 99282; 99283

== ENCOUNTER 2022-07-18 15:44 | Observation (INO) | payer MEDICARE ==
[2022-07-18] MEDS ORDERED: Sodium Chloride 0.9% 10 ML Syringe FLUSH PRN (16:09)
[2022-07-18] MEDS ORDERED: Acetaminophen 325 MG Tab PO PRN (16:09)
[2022-07-18] MEDS ORDERED: Ondansetron 4 MG Tab.DIS PO PRN ×2 (16:09→18:37)
[2022-07-18] MEDS ORDERED: Ibuprofen 200 MG Tab PO PRN (16:09)
[2022-07-18] MEDS: Sodium Chloride 0.9% 1,000 ML IV SCH ×2 (16:37→22:05)
[2022-07-18] MEDS ORDERED: ACETAMINOPHEN 500 MG PO PRN (17:02)
[2022-07-18] MEDS ORDERED: CETIRIZINE 1 MG/ML PO PRN (18:37)
[2022-07-18] MEDS ORDERED: GABAPENTIN 250 MG/5 ML PO PRN (18:37)
[2022-07-18] MEDS ORDERED: HYDROXYZINE HCL 10 MG/5 ML PO PRN (18:37)
[2022-07-18] MEDS ORDERED: MELATONIN 5 MG PO PRN (18:37)
[2022-07-18] MEDS ORDERED: Non-Formulary Medication 1 Each (Rimegepant Sulfate [Nurtec Odt] 75 MG Tab.Rapdis) SL PRN (18:37)
[2022-07-18] MEDS ORDERED: Sodium Chloride 0.9% 500 ML IV SCH (18:45)
[2022-07-18] MEDS ORDERED: PHENYLEPH PO SCH (18:45)
[2022-07-18] MEDS ORDERED: ACETAMINOP PO SCH (18:45)
[2022-07-18] MEDS ORDERED: DIPHENHYD PO SCH (18:45)
[2022-07-18] MEDS ORDERED: [UNRECOGNIZED DRUG - OTHER] PO SCH (18:45)
[2022-07-18] MEDS ORDERED: LORazepam Conc Solution 2 MG/ML 30 ML Bottle PO SCH ×2 (20:00→21:10)
[2022-07-18] MEDS ORDERED: LORazepam Conc Solution 2 MG/ML 30 ML Bottle PO PRN (21:20)
[2022-07-19] MEDS: Sodium Chloride 0.9% 1,000 ML IV SCH (06:06)
[2022-07-19 07:59] VITALS: BP 121/85; PULSE 105
[2022-07-19] MEDS ORDERED: CEFDINIR 250 MG/5 ML PO SCH (08:00)
[2022-07-19] MEDS ORDERED: LANSOPRAZOLE 15 MG PO SCH (08:00)
== END 2022-07-19 11:21 | disposition home or self-care (01) ==
LOC: CC.MS 15:44
PROVIDERS: ADMIT Family Medicine; ATTEND Nurse Practitioner Family
DX: E86.0 Dehydration (principal); F41.9 Anxiety disorder, unspecified; F32.A Depression, unspecified; G43.909 Migraine, unspecified, not intractable, without status migrainosus; Z90.89 Acquired absence of other organs; Z79.899 Other long term (current) drug therapy; Z98.890 Other specified postprocedural states; Z88.2 Allergy status to sulfonamides; Z88.1 Allergy status to other antibiotic agents; Z88.0 Allergy status to penicillin
CPT/HCPCS: 36415; 80053; 81003; 83735; 85025; 96360; 96361; A9270; G0378; J7030

== ENCOUNTER 2022-09-10 23:31 | Emergency (ER) | payer MEDICARE ==
[2022-09-10 23:40] VITALS: BP 102/75; PULSE 98
[2022-09-11] MEDS ORDERED: Sodium Chloride 0.9% 1,000 ML IV ONE (00:08)
[2022-09-11] MEDS ORDERED: Ketorolac 30 MG/ML SDV IVPUSH ONE (00:09)
[2022-09-11] MEDS ORDERED: Ondansetron 4 MG/2 ML SDV IVPUSH ONE (00:09)
[2022-09-11 01:10] LABS: CORONAVIRUS COVID-19 NAA NEGATIVE (NEGATIVE)
== END 2022-09-11 01:40 | disposition home or self-care (01) ==
LOC: CC.ED 23:31
DX: B37.31 Acute candidiasis of vulva and vagina (principal); F41.9 Anxiety disorder, unspecified; R53.81 Other malaise; K21.9 Gastro-esophageal reflux disease without esophagitis; Z88.1 Allergy status to other antibiotic agents; Z20.822 Contact with and (suspected) exposure to COVID-19
CPT/HCPCS: 0240U; 36415; 80053; 81001; 83735; 85025; 96361; 96374; 96375; 99284; 99284-25; J1885; J2405; J7030

== ENCOUNTER 2023-01-30 02:13 | Emergency (ER) | payer MEDICARE, OTHER ==
[2023-01-30] MEDS ORDERED: Sodium Chloride 0.9% 1,000 ML IV ONE (02:22)
[2023-01-30 02:39] LABS: BASOPHILS ABSOLUTE AUTO 0.03 10^3/uL (0.00-0.50); BASOPHILS PERCENT AUTO 0.5 % (0-1); EOSINOPHILS ABSOLUTE AUTO 0.28 10^3/uL (0.00-1.50); EOSINOPHILS PERCENT AUTO 4.6 % (0-6); HEMATOCRIT 41.1 % (37.0-47.0); HEMOGLOBIN 13.6 g/dL (12.0-16.0); IMMATURE GRAN ABSOLUTE AUTO 0.01 10^3/uL (0.00-0.49); IMMATURE GRAN PERCENT AUTO 0.2 % (0.0-4.9); LYMPHOCYTES ABSOLUTE AUTO 1.67 10^3/uL (0.60-5.00); LYMPHOCYTES PERCENT AUTO 27.4 % (24-44); MEAN CORPUSCULAR HEMOGLOBIN 28.5 pg (27.0-32.0); MEAN CORPUSCULAR HGB CONC 33.1 g/dL (32.0-36.0); MONOCYTES ABSOLUTE AUTO 0.64 10^3/uL (0.00-1.50); MONOCYTES PERCENT AUTO 10.5 % (0-10); NEUTROPHILS ABSOLUTE AUTO 3.47 x10^3/uL (1.80-8.00); NEUTROPHILS PERCENT AUTO 56.8 % (41-71); PLATELET COUNT,PLT 260 10^3/uL (150-400); RED BLOOD CELL COUNT 4.78 x10^6/uL (4.00-5.50); WHITE BLOOD CELL COUNT,WBC 6.1 10^3/uL (4.0-11.0)
[2023-01-30 02:41] VITALS: BP 114/81; PULSE 95
[2023-01-30 02:42] LABS: APPEARANCE,URINE CLEAR (CLEAR); BILIRUBIN,URINE NEGATIVE (NEGATIVE); COLOR,URINE YELLOW (YELLOW); GLUCOSE,URINE NEGATIVE (NEGATIVE); KETONES,URINE 40 mg/dL (NEGATIVE); LEUKOCYTE ESTERASE,URINE NEGATIVE (NEGATIVE); NITRITE,URINE NEGATIVE (NEGATIVE); OCCULT BLOOD,URINE LARGE (NEGATIVE); PH,URINE 6.5 (4.5-8.0); PROTEIN,URINE 100 mg/dL (NEGATIVE); UROBILINOGEN,URINE 0.2 EU/dL (0.2-1.0)
[2023-01-30 02:49] LABS: BACTERIA,URINE OCCASIONAL /HPF (NOT SEEN); EPITHELIAL CELLS,URINE FEW /HPF (NOT SEEN); MUCUS,URINE FEW /HPF (NOT SEEN); WBC,URINE 0-5 /HPF (0-5)
[2023-01-30 02:51] LABS: ALANINE AMINOTRANSFERASE,ALT 18 U/L (12-78); ALBUMIN 4.1 g/dL (3.4-5.0); ALKALINE PHOSPHATASE 109 U/L (46-116); ASPARTATE AMNIOTRANSFERASE,AST 16 U/L (15-37); BILIRUBIN TOTAL 0.4 mg/dL (0.0-1.0); BLOOD UREA NITROGEN,BUN 17 mg/dL (7-18); CALCIUM 8.8 mg/dL (8.4-10.1); CARBON DIOXIDE,CO2 26 mmol/L (21-32); CHLORIDE,CL 106 mEq/L (98-106); CREATININE 0.8 mg/dL (0.6-1.0); EST CRCL DRUG DOSING (CG) 64.12 mL/min; GLUCOSE RANDOM 106 mg/dL (75-99); POTASSIUM,K 3.3 mEq/L (3.5-5.0); PROTEIN TOTAL,TP 7.8 g/dL (6.4-8.2); SODIUM,NA 143 mEq/L (136-145)
[2023-01-30 02:53] LABS: C-REACTIVE PROTEIN < 0.03 mg/dL (<=0.30); ESTIMATED GFR 97 mL/min (>=60)
== END 2023-01-30 03:38 | disposition home or self-care (01) ==
LOC: CC.ED 02:13
DX: E86.0 Dehydration (principal); K21.9 Gastro-esophageal reflux disease without esophagitis; Z88.1 Allergy status to other antibiotic agents; Z79.899 Other long term (current) drug therapy; Z20.822 Contact with and (suspected) exposure to COVID-19
CPT/HCPCS: 36415; 80053; 81001; 85025; 86140; 87804; 96360; 99283-25; 99284; J7030; U0002

== ENCOUNTER 2023-03-07 01:37 | Emergency (ER) | payer MEDICAID, MEDICARE ==
[2023-03-07] MEDS: Sodium Chloride 0.9% 1,000 ML IV ONE (02:02)
[2023-03-07 02:05] LABS: APPEARANCE,URINE CLEAR (CLEAR); BILIRUBIN,URINE NEGATIVE (NEGATIVE); COLOR,URINE YELLOW (YELLOW); GLUCOSE,URINE NEGATIVE (NEGATIVE); KETONES,URINE NEGATIVE (NEGATIVE); LEUKOCYTE ESTERASE,URINE NEGATIVE (NEGATIVE); NITRITE,URINE NEGATIVE (NEGATIVE); OCCULT BLOOD,URINE NEGATIVE (NEGATIVE); PROTEIN,URINE NEGATIVE (NEGATIVE); UROBILINOGEN,URINE 0.2 EU/dL (0.2-1.0)
[2023-03-07 02:08] LABS: BASOPHILS ABSOLUTE AUTO 0.05 10^3/uL (0.00-0.50); BASOPHILS PERCENT AUTO 0.7 % (0-1); HEMATOCRIT 41.3 % (37.0-47.0); HEMOGLOBIN 13.9 g/dL (12.0-16.0); LYMPHOCYTES ABSOLUTE AUTO 1.65 10^3/uL (0.60-5.00); LYMPHOCYTES PERCENT AUTO 22.2 % (24-44); MEAN CORPUSCULAR HEMOGLOBIN 28.5 pg (27.0-32.0); MEAN CORPUSCULAR HGB CONC 33.7 g/dL (32.0-36.0); MEAN CORPUSCULAR VOLUME 84.6 fL (83.0-97.0); MONOCYTES ABSOLUTE AUTO 0.55 10^3/uL (0.00-1.50); MONOCYTES PERCENT AUTO 7.4 % (0-10); NEUTROPHILS ABSOLUTE AUTO 4.87 x10^3/uL (1.80-8.00); NEUTROPHILS PERCENT AUTO 65.7 % (41-71); PLATELET COUNT,PLT 195 10^3/uL (150-400); RED BLOOD CELL COUNT 4.88 x10^6/uL (4.00-5.50); WHITE BLOOD CELL COUNT,WBC 7.4 10^3/uL (4.0-11.0)
[2023-03-07] MEDS: Ondansetron 4 MG/2 ML SDV IVPUSH PRN (02:14)
[2023-03-07 02:17] LABS: ALBUMIN 4.3 g/dL (3.4-5.0); BILIRUBIN TOTAL 0.9 mg/dL (0.0-1.0); CALCIUM 9.5 mg/dL (8.4-10.1); CREATININE 0.8 mg/dL (0.6-1.0); EST CRCL DRUG DOSING (CG) 63.43 mL/min; POTASSIUM,K 3.8 mEq/L (3.5-5.0); PROTEIN TOTAL,TP 7.7 g/dL (6.4-8.2)
[2023-03-07 02:18] VITALS: BP 110/86; PULSE 81
== END 2023-03-07 03:20 | disposition home or self-care (01) ==
LOC: CC.ED 01:37
DX: R11.0 Nausea (principal); R09.81 Nasal congestion; F41.9 Anxiety disorder, unspecified; K21.9 Gastro-esophageal reflux disease without esophagitis; Z88.1 Allergy status to other antibiotic agents; Z79.899 Other long term (current) drug therapy
CPT/HCPCS: 36415; 80053; 81003; 85025; 96361; 96374; 99283; 99283-25; J2405; J7030

== ENCOUNTER 2023-07-06 00:40 | Emergency (ER) | payer MEDICARE ==
[2023-07-06 01:00] VITALS: BP 116/68; PULSE 78
[2023-07-06 01:30] LABS: BASOPHILS ABSOLUTE AUTO 0.04 10^3/uL (0.00-0.50); BASOPHILS PERCENT AUTO 0.7 % (0-1); EOSINOPHILS ABSOLUTE AUTO 0.25 10^3/uL (0.00-1.50); EOSINOPHILS PERCENT AUTO 4.4 % (0-6); HEMATOCRIT 41.6 % (37.0-47.0); HEMOGLOBIN 13.2 g/dL (12.0-16.0); IMMATURE GRAN ABSOLUTE AUTO 0.01 10^3/uL (0.00-0.49); IMMATURE GRAN PERCENT AUTO 0.2 % (0.0-4.9); LYMPHOCYTES PERCENT AUTO 22.8 % (24-44); MEAN CORPUSCULAR HEMOGLOBIN 28.1 pg (27.0-32.0); MEAN CORPUSCULAR HGB CONC 31.7 g/dL (32.0-36.0); MEAN CORPUSCULAR VOLUME 88.7 fL (83.0-97.0); MONOCYTES ABSOLUTE AUTO 0.51 10^3/uL (0.00-1.50); MONOCYTES PERCENT AUTO 8.9 % (0-10); PLATELET COUNT,PLT 217 10^3/uL (150-400); RED BLOOD CELL COUNT 4.69 x10^6/uL (4.00-5.50); WHITE BLOOD CELL COUNT,WBC 5.7 10^3/uL (4.0-11.0)
[2023-07-06 01:43] LABS: BILIRUBIN TOTAL 0.2 mg/dL (0.0-1.0); CALCIUM 9.1 mg/dL (8.4-10.1); CREATININE 0.8 mg/dL (0.6-1.0); EST CRCL DRUG DOSING (CG) 62.05 mL/min; MAGNESIUM 2.3 mg/dL (1.8-2.4); POTASSIUM,K 3.9 mEq/L (3.5-5.0); PROTEIN TOTAL,TP 7.5 g/dL (6.4-8.2)
[2023-07-06 01:46] LABS: APPEARANCE,URINE CLEAR (CLEAR); COLOR,URINE YELLOW (YELLOW); GLUCOSE,URINE NEGATIVE (NEGATIVE); PROTEIN,URINE NEGATIVE (NEGATIVE)
[2023-07-06 01:47] LABS: BILIRUBIN,URINE NEGATIVE (NEGATIVE); KETONES,URINE NEGATIVE (NEGATIVE); LEUKOCYTE ESTERASE,URINE SMALL (NEGATIVE); NITRITE,URINE NEGATIVE (NEGATIVE); OCCULT BLOOD,URINE NEGATIVE (NEGATIVE); UROBILINOGEN,URINE 0.2 EU/dL (0.2-1.0)
[2023-07-06 01:52] LABS: RBC,URINE 0-5 /HPF (0-5)
[2023-07-06 01:53] LABS: BACTERIA,URINE OCCASIONAL /HPF (NOT SEEN); SQUAMOUS EPITHELIAL CELLS,UR FEW /HPF (NOT SEEN); WBC,URINE 0-5 /HPF (0-5)
== END 2023-07-06 02:10 | disposition home or self-care (01) ==
LOC: CC.ED 00:40
DX: R11.0 Nausea (principal); K21.9 Gastro-esophageal reflux disease without esophagitis; Z20.822 Contact with and (suspected) exposure to COVID-19; Z88.1 Allergy status to other antibiotic agents; Z88.2 Allergy status to sulfonamides; Z79.899 Other long term (current) drug therapy
CPT/HCPCS: 36415; 80053; 81001; 83735; 85025; 99283; U0002

== ENCOUNTER 2023-11-12 01:07 | Emergency (ER) | payer MEDICARE, MEDICAID ==
[2023-11-12 01:18] VITALS: BP 105/87; PULSE 118
[2023-11-12] MEDS: Promethazine 25 MG/ML SDV IM ONE (02:01)
== END 2023-11-12 02:04 | disposition home or self-care (01) ==
LOC: CC.ED 01:07
DX: R11.2 Nausea with vomiting, unspecified (principal); T50.905A Adverse effect of unspecified drugs, medicaments and biological substances, initial encounter; K21.9 Gastro-esophageal reflux disease without esophagitis; Z88.2 Allergy status to sulfonamides; Z88.8 Allergy status to other drugs, medicaments and biological substances; Z88.1 Allergy status to other antibiotic agents; Z79.899 Other long term (current) drug therapy
CPT/HCPCS: 96372; 99283; J2550

== ENCOUNTER 2023-12-30 00:53 | Emergency (ER) | payer MEDICARE, MEDICAID ==
[2023-12-30 01:02] VITALS: BP 115/93; PULSE 118
[2023-12-30] MEDS: cefTRIAXone 1 GM Vial IVPUSH ONE (01:31)
[2023-12-30] MEDS: methylPREDNISolone Sodium Succinate 40 MG/1 ML SDV IVPUSH ONE (01:32)
== END 2023-12-30 01:55 | disposition home or self-care (01) ==
LOC: CC.ED 00:53
DX: J01.00 Acute maxillary sinusitis, unspecified (principal); R11.0 Nausea; K21.9 Gastro-esophageal reflux disease without esophagitis; Z88.2 Allergy status to sulfonamides; Z88.1 Allergy status to other antibiotic agents; Z79.899 Other long term (current) drug therapy
CPT/HCPCS: 96374; 96375; 99283-25; J0696; J2920

== ENCOUNTER 2024-01-22 01:03 | Emergency (ER) | payer MEDICARE, MEDICAID ==
[2024-01-22 01:38] LABS: APPEARANCE,URINE CLEAR (CLEAR); BILIRUBIN,URINE NEGATIVE (NEGATIVE); COLOR,URINE YELLOW (YELLOW); GLUCOSE,URINE NEGATIVE (NEGATIVE); KETONES,URINE NEGATIVE (NEGATIVE); LEUKOCYTE ESTERASE,URINE NEGATIVE (NEGATIVE); NITRITE,URINE NEGATIVE (NEGATIVE); OCCULT BLOOD,URINE NEGATIVE (NEGATIVE); PROTEIN,URINE NEGATIVE (NEGATIVE); UROBILINOGEN,URINE 0.2 EU/dL (0.2-1.0)
[2024-01-22 01:41] LABS: BASOPHILS ABSOLUTE AUTO 0.03 10^3/uL (0.00-0.50); BASOPHILS PERCENT AUTO 0.6 % (0-1); EOSINOPHILS ABSOLUTE AUTO 0.18 10^3/uL (0.00-1.50); EOSINOPHILS PERCENT AUTO 3.6 % (0-6); HEMATOCRIT 43.1 % (37.0-47.0); IMMATURE GRAN ABSOLUTE AUTO 0.01 10^3/uL (0.00-0.49); IMMATURE GRAN PERCENT AUTO 0.2 % (0.0-4.9); LYMPHOCYTES PERCENT AUTO 39.8 % (24-44); MEAN CORPUSCULAR HEMOGLOBIN 28.2 pg (27.0-32.0); MEAN CORPUSCULAR HGB CONC 32.5 g/dL (32.0-36.0); MEAN CORPUSCULAR VOLUME 86.9 fL (83.0-97.0); MONOCYTES ABSOLUTE AUTO 0.42 10^3/uL (0.00-1.50); MONOCYTES PERCENT AUTO 8.4 % (0-10); NEUTROPHILS ABSOLUTE AUTO 2.38 x10^3/uL (1.80-8.00); NEUTROPHILS PERCENT AUTO 47.4 % (41-71); PLATELET COUNT,PLT 252 10^3/uL (150-400); RED BLOOD CELL COUNT 4.96 x10^6/uL (4.00-5.50)
[2024-01-22] MEDS: Sodium Chloride 0.9% 1,000 ML IV ONE (01:49)
[2024-01-22] MEDS: Ondansetron 4 MG/2 ML SDV IVPUSH STA (01:51)
[2024-01-22 01:52] LABS: ALANINE AMINOTRANSFERASE,ALT 16 U/L (12-78); ALBUMIN 4.3 g/dL (3.4-5.0); ALKALINE PHOSPHATASE 112 U/L (46-116); ASPARTATE AMNIOTRANSFERASE,AST 15 U/L (15-37); BILIRUBIN TOTAL 0.6 mg/dL (0.0-1.0); BLOOD UREA NITROGEN,BUN 11 mg/dL (7-18); CALCIUM 8.4 mg/dL (8.4-10.1); CARBON DIOXIDE,CO2 27 mmol/L (21-32); CHLORIDE,CL 104 mEq/L (98-106); EST CRCL DRUG DOSING (CG) 51.89 mL/min; GLUCOSE RANDOM 105 mg/dL (75-99); POTASSIUM,K 3.9 mEq/L (3.5-5.0); PROTEIN TOTAL,TP 7.7 g/dL (6.4-8.2); SODIUM,NA 140 mEq/L (136-145)
[2024-01-22 01:53] LABS: C-REACTIVE PROTEIN < 0.50 mg/dL (<=0.50); ESTIMATED GFR 74 mL/min (>=60)
[2024-01-22] MEDS: Ketorolac 30 MG/ML SDV IVPUSH ONE (01:53)
[2024-01-22 02:55] VITALS: BP 119/76; PULSE 84
== END 2024-01-22 03:00 | disposition home or self-care (01) ==
LOC: CC.ED 01:03
DX: R11.0 Nausea (principal); Z88.0 Allergy status to penicillin; Z88.1 Allergy status to other antibiotic agents; Z88.2 Allergy status to sulfonamides; Z88.8 Allergy status to other drugs, medicaments and biological substances; Z79.899 Other long term (current) drug therapy
CPT/HCPCS: 36415; 80053; 81003; 85025; 86140; 96374; 99284; J2405; J7030

== ENCOUNTER 2024-03-12 22:18 | Emergency (ER) | payer MEDICARE, MEDICAID ==
[2024-03-12 22:40] VITALS: BP 115/85; PULSE 101
[2024-03-12] MEDS: Ondansetron 4 MG/2 ML SDV IVPUSH STA (22:48)
[2024-03-12] MEDS: Sodium Chloride 0.9% 1,000 ML IV ONE (22:48)
[2024-03-12 22:56] LABS: BASOPHILS ABSOLUTE AUTO 0.05 10^3/uL (0.00-0.50); BASOPHILS PERCENT AUTO 0.6 % (0-1); EOSINOPHILS ABSOLUTE AUTO 0.17 10^3/uL (0.00-1.50); EOSINOPHILS PERCENT AUTO 1.9 % (0-6); HEMATOCRIT 42.3 % (37.0-47.0); HEMOGLOBIN 14.1 g/dL (12.0-16.0); IMMATURE GRAN ABSOLUTE AUTO 0.01 10^3/uL (0.00-0.49); IMMATURE GRAN PERCENT AUTO 0.1 % (0.0-4.9); LYMPHOCYTES ABSOLUTE AUTO 2.18 10^3/uL (0.60-5.00); LYMPHOCYTES PERCENT AUTO 24.9 % (24-44); MEAN CORPUSCULAR HEMOGLOBIN 28.7 pg (27.0-32.0); MEAN CORPUSCULAR HGB CONC 33.3 g/dL (32.0-36.0); MONOCYTES ABSOLUTE AUTO 0.69 10^3/uL (0.00-1.50); MONOCYTES PERCENT AUTO 7.9 % (0-10); NEUTROPHILS ABSOLUTE AUTO 5.65 x10^3/uL (1.80-8.00); NEUTROPHILS PERCENT AUTO 64.6 % (41-71); PLATELET COUNT,PLT 210 10^3/uL (150-400); RED BLOOD CELL COUNT 4.92 x10^6/uL (4.00-5.50); WHITE BLOOD CELL COUNT,WBC 8.8 10^3/uL (4.0-11.0)
[2024-03-12 23:09] LABS: ALANINE AMINOTRANSFERASE,ALT 16 U/L (12-78); ALBUMIN 4.1 g/dL (3.4-5.0); ALKALINE PHOSPHATASE 110 U/L (46-116); ASPARTATE AMNIOTRANSFERASE,AST 14 U/L (15-37); BILIRUBIN TOTAL 0.5 mg/dL (0.0-1.0); BLOOD UREA NITROGEN,BUN 12 mg/dL (7-18); CALCIUM 9.4 mg/dL (8.4-10.1); CARBON DIOXIDE,CO2 25 mmol/L (21-32); CHLORIDE,CL 106 mEq/L (98-106); GLUCOSE RANDOM 101 mg/dL (75-99); POTASSIUM,K 3.4 mEq/L (3.5-5.0); PROTEIN TOTAL,TP 7.6 g/dL (6.4-8.2); SODIUM,NA 143 mEq/L (136-145)
[2024-03-12 23:11] LABS: C-REACTIVE PROTEIN < 0.50 mg/dL (<=0.50); ESTIMATED GFR 74 mL/min (>=60)
[2024-03-12 23:19] LABS: APPEARANCE,URINE CLEAR (CLEAR); BILIRUBIN,URINE NEGATIVE (NEGATIVE); COLOR,URINE YELLOW (YELLOW); GLUCOSE,URINE NEGATIVE (NEGATIVE); KETONES,URINE TRACE mg/dL (NEGATIVE); LEUKOCYTE ESTERASE,URINE TRACE (NEGATIVE); NITRITE,URINE NEGATIVE (NEGATIVE); OCCULT BLOOD,URINE NEGATIVE (NEGATIVE); PH,URINE 7.5 (4.5-8.0); PROTEIN,URINE NEGATIVE (NEGATIVE)
[2024-03-12 23:27] LABS: BACTERIA,URINE OCCASIONAL /HPF (NOT SEEN); RBC,URINE 0-5 /HPF (0-5); SQUAMOUS EPITHELIAL CELLS,UR MANY /HPF (NOT SEEN)
[2024-03-12] MEDS: LORazepam 2 MG/ML SDV IVPUSH ONE (23:32)
== END 2024-03-13 00:08 | disposition home or self-care (01) ==
LOC: CC.ED 22:18
DX: E86.0 Dehydration (principal); F41.9 Anxiety disorder, unspecified; F32.A Depression, unspecified; B37.9 Candidiasis, unspecified; Z88.0 Allergy status to penicillin; Z88.8 Allergy status to other drugs, medicaments and biological substances; Z79.899 Other long term (current) drug therapy
CPT/HCPCS: 36415; 80053; 81001; 85025; 86140; 96361; 96374; 96375; 99284; 99284-25; J2060; J2405; J7030

== ENCOUNTER 2024-08-11 08:30 | Emergency (ER) | payer MEDICARE, MEDICAID ==
[2024-08-11 09:39] VITALS: BP 105/70; PULSE 88
== END 2024-08-11 09:05 | disposition home or self-care (01) ==
LOC: CC.ED 08:30
DX: S90.32XA Contusion of left foot, initial encounter (principal); K21.9 Gastro-esophageal reflux disease without esophagitis; Z79.899 Other long term (current) drug therapy; Z88.2 Allergy status to sulfonamides; Z88.1 Allergy status to other antibiotic agents; Z88.0 Allergy status to penicillin; W01.0XXA Fall on same level from slipping, tripping and stumbling without subsequent striking against object, initial encounter
CPT/HCPCS: 73610-LT; 73630-LT; 99283

== ENCOUNTER 2024-09-21 03:32 | Emergency (ER) | payer MEDICARE, MEDICAID ==
[2024-09-21 03:44] VITALS: BP 128/83; PULSE 81
[2024-09-21 04:00] LABS: BASOPHILS ABSOLUTE AUTO 0.05 10^3/uL (0.00-0.50); BASOPHILS PERCENT AUTO 0.8 % (0-1); EOSINOPHILS ABSOLUTE AUTO 0.34 10^3/uL (0.00-1.50); EOSINOPHILS PERCENT AUTO 5.2 % (0-6); HEMATOCRIT 43.3 % (37.0-47.0); HEMOGLOBIN 14.2 g/dL (12.0-16.0); IMMATURE GRAN ABSOLUTE AUTO 0.01 10^3/uL (0.00-0.49); IMMATURE GRAN PERCENT AUTO 0.2 % (0.0-4.9); LYMPHOCYTES ABSOLUTE AUTO 1.43 10^3/uL (0.60-5.00); MEAN CORPUSCULAR HEMOGLOBIN 28.5 pg (27.0-32.0); MEAN CORPUSCULAR HGB CONC 32.8 g/dL (32.0-36.0); MEAN CORPUSCULAR VOLUME 86.8 fL (83.0-97.0); MONOCYTES PERCENT AUTO 6.2 % (0-10); NEUTROPHILS ABSOLUTE AUTO 4.26 x10^3/uL (1.80-8.00); NEUTROPHILS PERCENT AUTO 65.6 % (41-71); PLATELET COUNT,PLT 215 10^3/uL (150-400); RED BLOOD CELL COUNT 4.99 x10^6/uL (4.00-5.50); WHITE BLOOD CELL COUNT,WBC 6.5 10^3/uL (4.0-11.0)
[2024-09-21 04:01] LABS: APPEARANCE,URINE CLEAR (CLEAR); BILIRUBIN,URINE NEGATIVE (NEGATIVE); COLOR,URINE YELLOW (YELLOW); GLUCOSE,URINE NEGATIVE (NEGATIVE); KETONES,URINE >=160 mg/dL (NEGATIVE); LEUKOCYTE ESTERASE,URINE NEGATIVE (NEGATIVE); NITRITE,URINE NEGATIVE (NEGATIVE); OCCULT BLOOD,URINE NEGATIVE (NEGATIVE); PROTEIN,URINE NEGATIVE (NEGATIVE)
[2024-09-21 04:17] LABS: ALBUMIN 4.4 g/dL (3.4-5.0); BILIRUBIN TOTAL 1.2 mg/dL (0.0-1.0); CREATININE 0.9 mg/dL (0.6-1.0); EST CRCL DRUG DOSING (CG) 61.9 mL/min; POTASSIUM,K 3.7 mEq/L (3.5-5.0); PROTEIN TOTAL,TP 7.9 g/dL (6.4-8.2)
[2024-09-21] MEDS: Ketorolac 30 MG/ML SDV IM ONE (04:32)
== END 2024-09-21 04:49 | disposition home or self-care (01) ==
LOC: CC.ED 03:32
DX: J01.10 Acute frontal sinusitis, unspecified (principal); Z88.0 Allergy status to penicillin; Z88.1 Allergy status to other antibiotic agents; Z88.8 Allergy status to other drugs, medicaments and biological substances; Z79.899 Other long term (current) drug therapy
CPT/HCPCS: 36415; 80053; 81003; 85025; 87428-QW; 96372; 99284; J1885

== ENCOUNTER 2025-03-09 20:23 | Emergency (ER) | payer MEDICARE, MEDICAID ==
[2025-03-09 20:40] LABS: APPEARANCE,URINE CLEAR (CLEAR); GLUCOSE,URINE NEGATIVE (NEGATIVE); OCCULT BLOOD,URINE NEGATIVE (NEGATIVE)
[2025-03-09 20:43] VITALS: BP 117/82; PULSE 80
[2025-03-09 20:48] LABS: EPITHELIAL CELLS,URINE MANY /HPF (NOT SEEN)
[2025-03-09] MEDS: Amoxicillin 250 MG/5 ML Susp 150 ML Bottle PO ONE (20:59)
== END 2025-03-09 21:05 | disposition home or self-care (01) ==
LOC: CC.ED 20:23
DX: J32.9 Chronic sinusitis, unspecified (principal); Z88.1 Allergy status to other antibiotic agents; Z88.8 Allergy status to other drugs, medicaments and biological substances; Z79.899 Other long term (current) drug therapy
CPT/HCPCS: 81001; 99284; A9270

== ENCOUNTER 2025-03-12 08:29 | Emergency (ER) | payer MEDICARE, MEDICAID ==
[2025-03-12 08:48] VITALS: BP 124/83; PULSE 96
[2025-03-12 09:06] LABS: BASOPHILS ABSOLUTE AUTO 0.07 10^3/uL (0.00-0.50); BASOPHILS PERCENT AUTO 1.3 % (0-1); EOSINOPHILS ABSOLUTE AUTO 0.13 10^3/uL (0.00-1.50); EOSINOPHILS PERCENT AUTO 2.4 % (0-6); IMMATURE GRAN ABSOLUTE AUTO 0.00 10^3/uL (0.00-0.49); IMMATURE GRAN PERCENT AUTO 0.0 % (0.0-4.9); LYMPHOCYTES ABSOLUTE AUTO 1.21 10^3/uL (0.60-5.00); LYMPHOCYTES PERCENT AUTO 22.0 % (24-44); MONOCYTES ABSOLUTE AUTO 0.42 10^3/uL (0.00-1.50); MONOCYTES PERCENT AUTO 7.6 % (0-10); NEUTROPHILS ABSOLUTE AUTO 3.68 x10^3/uL (1.80-8.00); NEUTROPHILS PERCENT AUTO 66.7 % (41-71); PLATELET COUNT,PLT 182 10^3/uL (150-400); RED BLOOD CELL COUNT 5.05 x10^6/uL (4.00-5.50); WHITE BLOOD CELL COUNT,WBC 5.5 10^3/uL (4.0-11.0)
[2025-03-12] MEDS: Ondansetron 4 MG/2 ML SDV IVPUSH STA (09:24)
[2025-03-12 09:32] LABS: ALANINE AMINOTRANSFERASE,ALT 19 U/L (12-78); ASPARTATE AMNIOTRANSFERASE,AST 17 U/L (15-37); BILIRUBIN TOTAL 0.9 mg/dL (0.0-1.0); BLOOD UREA NITROGEN,BUN 9 mg/dL (7-18); CARBON DIOXIDE,CO2 20 mmol/L (21-32); CHLORIDE,CL 101 mEq/L (98-106); CREATININE 0.9 mg/dL (0.6-1.0); EST CRCL DRUG DOSING (CG) 57.75 mL/min; ESTIMATED GFR 83 mL/min (>=60); GLUCOSE RANDOM 75 mg/dL (75-99); POTASSIUM,K 4.1 mEq/L (3.5-5.0); PROTEIN TOTAL,TP 8.5 g/dL (6.4-8.2); SODIUM,NA 139 mEq/L (136-145)
[2025-03-12] MEDS: LORazepam 2 MG/ML SDV IVPUSH STA (09:54)
== END 2025-03-12 10:50 | disposition home or self-care (01) ==
LOC: CC.ED 08:29
DX: E86.0 Dehydration (principal); K21.9 Gastro-esophageal reflux disease without esophagitis; Z79.899 Other long term (current) drug therapy; Z88.2 Allergy status to sulfonamides; Z88.1 Allergy status to other antibiotic agents
CPT/HCPCS: 36415; 80053; 84703; 85025; 86140; 96361; 96374; 96375; 99284-25; J2060; J2405; J7030

== ENCOUNTER 2025-03-15 02:11 | Emergency (ER) | payer MEDICARE, MEDICAID ==
[2025-03-15] MEDS: Promethazine 25 MG/ML SDV IM ONE (02:28)
[2025-03-15] MEDS: Lactated Ringers 500 ML IV ONE (02:33)
[2025-03-15] MEDS: Lactated Ringers 1,000 ML IV ONE (02:37)
[2025-03-15 02:44] VITALS: BP 113/78; PULSE 95
[2025-03-15 02:47] LABS: APPEARANCE,URINE CLEAR (CLEAR); GLUCOSE,URINE NEGATIVE (NEGATIVE); OCCULT BLOOD,URINE NEGATIVE (NEGATIVE)
[2025-03-15 02:52] LABS: BASOPHILS ABSOLUTE AUTO 0.05 10^3/uL (0.00-0.50); BASOPHILS PERCENT AUTO 1.0 % (0-1); EOSINOPHILS ABSOLUTE AUTO 0.15 10^3/uL (0.00-1.50); EOSINOPHILS PERCENT AUTO 3.0 % (0-6); IMMATURE GRAN ABSOLUTE AUTO 0.01 10^3/uL (0.00-0.49); IMMATURE GRAN PERCENT AUTO 0.2 % (0.0-4.9); LYMPHOCYTES ABSOLUTE AUTO 1.42 10^3/uL (0.60-5.00); LYMPHOCYTES PERCENT AUTO 28.8 % (24-44); MONOCYTES ABSOLUTE AUTO 0.50 10^3/uL (0.00-1.50); MONOCYTES PERCENT AUTO 10.1 % (0-10); NEUTROPHILS ABSOLUTE AUTO 2.80 x10^3/uL (1.80-8.00); NEUTROPHILS PERCENT AUTO 56.9 % (41-71); PLATELET COUNT,PLT 198 10^3/uL (150-400); RED BLOOD CELL COUNT 5.27 x10^6/uL (4.00-5.50); WHITE BLOOD CELL COUNT,WBC 4.9 10^3/uL (4.0-11.0)
[2025-03-15 02:59] LABS: SQUAMOUS EPITHELIAL CELLS,UR FEW /HPF (NOT SEEN)
[2025-03-15 03:00] LABS: ALANINE AMINOTRANSFERASE,ALT 18 U/L (12-78); ASPARTATE AMNIOTRANSFERASE,AST 18 U/L (15-37); BILIRUBIN TOTAL 1.2 mg/dL (0.0-1.0); BLOOD UREA NITROGEN,BUN 9 mg/dL (7-18); CARBON DIOXIDE,CO2 19 mmol/L (21-32); CHLORIDE,CL 101 mEq/L (98-106); CREATININE 1.0 mg/dL (0.6-1.0); EST CRCL DRUG DOSING (CG) 51.92 mL/min; GLUCOSE RANDOM 81 mg/dL (75-99); POTASSIUM,K 3.7 mEq/L (3.5-5.0); PROTEIN TOTAL,TP 8.2 g/dL (6.4-8.2); SODIUM,NA 138 mEq/L (136-145)
[2025-03-15 03:01] LABS: ESTIMATED GFR 73 mL/min (>=60)
== END 2025-03-15 04:50 | disposition home or self-care (01) ==
LOC: CC.ED 02:11
DX: E86.0 Dehydration (principal); F32.A Depression, unspecified; R11.2 Nausea with vomiting, unspecified; K21.9 Gastro-esophageal reflux disease without esophagitis; Z88.2 Allergy status to sulfonamides; Z88.1 Allergy status to other antibiotic agents; Z79.899 Other long term (current) drug therapy
CPT/HCPCS: 36415; 80053; 81001; 85025; 86140; 96360; 96361; 96372; 99284-25; J2550; J7120